=== PATIENT | male | born 1975 | race Caucasian/White ===

== ENCOUNTER 2021-06-24 08:44 | Inpatient (IN) | payer OTHER, SELFPAY ==
[2021-06-24] VITALS (9 sets, daily range): BP systolic 159–198; BP diastolic 9–106; PULSE 98–107; RESP 18–30; TEMP 36.4–37.2; O2SAT 94–99; BMI 42.8
--- NOTE | ~2021-06-24 | XR_ITS ---
EXAMINATION: XR CHEST CLINICAL INFORMATION: Dyspnea COMPARISON: None TECHNIQUE: Frontal view of the chest was obtained. FINDINGS: The cardiac silhouette is enlarged. There may be pulmonary venous redistribution. The lungs are otherwise clear. There is no pleural effusion or pneumothorax. There are degenerative changes of the spine. XR/XR chest 1V IMPRESSION: Enlarged cardiac silhouette and pulmonary venous redistribution. Enlarged heart/cardiomyopathy and pericardial effusion should be considered.
--- NOTE | ~2021-06-24 | US_ITS ---
EXAMINATION: US VENOUS ULTRASOUND WITH DOPPLER LOWER EXTREMITY, BILATERAL CLINICAL INFORMATION: Swelling COMPARISON: None TECHNIQUE: Ultrasound of the deep veins is performed from the hip to the calf with compression sonography and color and pulse Doppler assessment. Spectral analysis with color-flow imaging is performed. FINDINGS: RIGHT: There is normal venous compression and respiratory variation and augmented flow. The visualized common femoral vein, superficial femoral vein, profunda femoral vein, popliteal vein, and the trifurcation region shows no evidence of deep venous thrombosis. There is no significant popliteal fossa cyst. LEFT: There is normal venous compression and respiratory variation and augmented flow. The visualized common femoral vein, superficial femoral vein, profunda femoral vein, popliteal vein, and the trifurcation region shows no evidence of deep venous thrombosis. There is no significant popliteal fossa cyst. US/US venous duplex LE BI IMPRESSION: No DVT demonstrated in the bilateral lower extremity.
--- NOTE | 2021-06-24 09:43 | ED.SOB ---
HPI - SOB/Dyspnea General Chief Complaint: General Medical Stated Complaint: SOB/cough Time Seen by Provider: 06/24/21 09:40 Source: patient Mode of arrival: ambulatory Limitations: no limitations History of Present Illness HPI Narrative: over 3 months has had black stools, increased wob with exertion, LE swelling, cannot go up the stairs has not seen a doctor did not have insurance, father and uncle had CHF patient denies hx of ETOH or substance abuse history MD elicited complaint: shortness of breath (LE edema) Pertinent past history: other (denies does not go to the doctor) Onset (ago): month(s) (3) Context: occurred during exertion Timing: intermittent and progressively worsening Severity: moderate Exacerbating factors: exertion and movement Relieving factors: rest Associated symptoms: other (LE edema) Treatment prior to arrival: none Related Data Home Medications Medication Instructions Recorded Confirmed acetaminophen 325 mg tablet 650 mg PO Q6H PRN 06/24/21 06/24/21 Allergies Allergy/AdvReac Type Severity Reaction Status Date / Time No Known Allergies Allergy Verified 06/24/21 09:35 [No Known Allergies*] Review of Systems Review of Systems: Constitutional : No Fever, No Chills ENT/Mouth : No sore throat, No Rhinorrhea, No Swallowing Difficulty Eyes: No Eye Pain, No Swelling, No Redness Cardiovascular : No Chest Pain, positive SOB, No Orthopnea, positive Edema Respiratory : No Cough, No Sputum, No Wheezing, positive dyspnea Gastrointestinal : No Nausea, No Vomiting, No Diarrhea, No abdominal Pain, No Hematochezia, No Melena Genitourinary : No Dysuria, No Urinary Frequency, No Hematuria Musculoskeletal : No joint pain, No Myalgias Skin : No Skin Lesions, No rash Neuro : No Weakness, No Numbness, No Dizziness, No Headache Psych : No Anxiety/Panic, No Depression Heme/Lymph: No Bruising, No Lymphadenopathy Endocrine : No Polyuria, No Polydipsia All other systems reviewed and are negative PMFSH Past Medical History Attestation statement: The following information was validated with the patient. Medical History No known health problems Social History Social History (Updated 06/24/21 @ 10:08 by Alexa Matias DO) Alcohol intake: never Patient Tobacco Use Status: Never used Tobacco Use of substances other than those prescribed or required for medical reasons: No Advance Directives: No Advance Directives Information Provided: No Physical Exam Vital Signs: Vital Signs: Last Vital Signs Temp 98.4 F 06/24/21 09:50 Pulse 98 06/24/21 10:53 Resp 18 06/24/21 09:50 BP 169/102 H 06/24/21 10:53 Pulse Ox 97 06/24/21 10:53 BMI result Body Mass Index 42.8 Appearance: Alert. Oriented X3. No acute distress. Eyes: Pupils equal, round and reactive to light. ENT: Pharynx normal. Neck: Normal inspection. Neck supple. CVS: Normal heart rate and rhythm. Pulses normal. Respiratory: No respiratory distress. Breath sounds diminished at the bases Abdomen: Soft and nontender. Anasarca Skin: Skin warm and dry. pale skin color. Normal skin turgor. Extremities: pitting edema 2+ up to mid abdomen. No calf ttp Neuro: Oriented X 3. No motor deficit. No sensory deficit. Course Course Course Narrative: ECHO ordered for cardiomegaly bedside limited ECHO parasternal, apical and substernal - trace pericardial effusion seen he has an enlarged heart MDM - SOB/Dyspnea MDM Narrative Medical decision making narrative: 45 yo male with no sig PMH though he doesn't go to the doctors comes in with 3 months of LE edema, HORTON, black stools on exam he has anasarca at this time labs, BNP, CXR, EKG, DVT studies ordered. Suspect anemia vs CHF. Anticipate he will need admission given presentation vs new medications pending workup. Lab Data Labs: Lab Results 06/24/21 Range/Units 09:38 COVID-19 (FRANCOIS) Negative (Negative) COVID-19 Clin Com See Note ECG Data Attestation: I personally reviewed and interpreted this ECG as follows: ECG interpretation date: 06/24/21 ECG interpretation time: 11:21 Interpretation: Rate: 96 Rhythm: NSR [place]: left Normal P waves. Normal SHALOM. Normal QRS complex. Poor R wave progression ST T wave : no JOJO, nonspecific qTC: normal prior studies: no acute ischemia The study has been interpreted contemporaneously by me. . Discharge Plan Discharge Clinical Impression: Cardiomyopathy, Acute dyspnea, Anasarca Patient Disposition: Admitted As Inpatient
--- NOTE | 2021-06-24 09:49 | ECG_ITS ---
Test Reason : SOB Blood Pressure : / mmHG Vent. Rate : 096 BPM Atrial Rate : 096 BPM P-R Int : 136 ms QRS Dur : 090 ms QT Int : 372 ms P-R-T Axes : 042 -05 027 degrees QTc Int : 469 ms Normal sinus rhythm Nonspecific ST and T wave abnormality Abnormal ECG No previous ECGs available Referred By: Alexa Matias Electronically Signed By:Dmitriy Cornelius
--- NOTE | 2021-06-24 09:55 | PHA.MEDREC ---
Pharmacy Consult ? Medication Reconciliation Pharmacy has completed the medication reconciliation. Patient reports taking no medications. Only as needed tylenol. Stefania Grewal, LuciD
[2021-06-24 10:41] LABS: COVID-19 Test Negative (Negative); IDNOW Serial# 9DD0AD1C
--- NOTE | 2021-06-24 11:12 | CA_ITS ---
Transthoracic Echocardiogram Patient (Last, First, Middle): Sudarshan Hensley, Gender: Male Date of : 1975 Age: 45 Procedure Date: 06/24/2021 Procedure Type: Transthoracic E[place] [facility] [place]: 175.26 cm Weight: 131.54 kg BSA: 2.42 m2 Heart Rate: bpm BP: 169 / 102 mmHg Line Operator: Referring MD: Alexa Matias DO Symptoms: dyspnea, anasarca Study Quality: Fair ECG Rhythm: Sinus Conclusions: - Mildly increased left ventricular cavity size. There is mildly increased left ventricular wall thickness. The left ventricular systolic function is moderately decreased. The visually estimated ejection fraction is between 30-35%. - E/E prime ratio is >15, consistent with elevated filling pressures. - Mildly increased right ventricular cavity size. There is mild to moderately decreased right ventricular systolic function. - The left atrium is moderately dilated. - Significantly elevated right atrial pressure. Moderate pulmonary hypertension is present. Findings Procedure Information Contrast agent, definity, is being given per protocol without apparent complications. Left Ventricle Mildly increased left ventricular cavity size. There is mildly increased left ventricular wall thickness. The left ventricular systolic function is moderately decreased. The visually estimated ejection fraction is between 30 35%. There is moderate global hypokinesis. Abnormal diastolic function is noted. Spectral Doppler is indicative of a restrictive filling pattern. E/E prime ratio is >15, consistent with elevated filling pressures. Right Ventricle Mildly increased right ventricular cavity size. There is mild to moderately decreased right ventricular systolic function. Atria The left atrium is moderately dilated. Aortic Valve The aortic valve was not well visualized. There is no aortic valve stenosis. There is no aortic valve regurgitation. Mitral Valve Normal mitral valve structure and function. There is no mitral valve regurgitation. There is no mitral valve stenosis. Pulmonic Valve The pulmonic valve is likely normal. Tricuspid Valve Normal tricuspid valve structure. There is trace tricuspid valve regurgitation. Significantly elevated right atrial pressure. Moderate pulmonary hypertension is present. Great Vessels All visible segments of the aorta are normal in size. The visualized portions of the pulmonary artery and branches are normal. Venous The inferior vena cava is dilated and does not collapse with inspiration. Pericardium/Pleural There is no evidence of pericardial effusion. Prior Study Comparison No prior study available for comparison. Measurements 2D Linear Measurements IVSd: 1.13 0.6-0.9/0.6-1.0 cm LVIDd: 6.76 3.9-5.3/4.2-5.9 cm LVIDd Index: 2.79 2.4-3.2/2.2-3.1 cm/m2 LVIDs: 5.83 2.0-3.6 cm LVPWd: 1.07 0.7-1.1 cm Ao Root: 3.00 2.1-3.5 cm LA Diam: 5.50 2.7-3.8/3.0-4.0 cm LAIDs Index: 2.27 1.5-2.3 cm/m2 LV Mass: 426.82 67-162/88-224 g LV Mass Index: 176.37 43-95/49-115 g/m2 LVOT Diam: 2.30 3.0+(-)1.3 cm 2D Systolic Function EF 4C: 25.80 >55% EF 2C: 35.00 >55% EF BiP: 29.00 >55% Mitral Valve MV Pk E: 1.28 MV Decel Time: 146.00 E'Lateral: 6.64 E'Medial: 5.11 E/E' Med: 25.00 E/E' Lat: 19.30 PHT: 43.00 MVA PHT: 5.12 Decel [place]: 8.77 Aortic Valve AoV Pk Bradley: 1.26 AoV Mn Bradley: 0.83 AoV VTI: 0.19 AoV Pk Grad: 6.00 Aov Mn Grad: 3.00 BONNIE Cont.VTI: 3.50 LVOT LVOT Pk Bradley: 1.01 LVOT Mn Bradley: 0.75 LVOT VTI: 0.16 LVOT Pk Grad: 4.00 LVOT Mn Grad: 3.00 LVOT Diam: 2.30 LVOT Area: 4.15 Diastolic Function MV Pk E: 1.28 E'Medial: 5.11 E/E' Med: 25.00 E' Laterial: 6.64 E/E' Lat: 19.30 Right Ventricle TAPSE (mm): 29.00 Tricuspid Valve TR Pk Bradley: 2.53 TR Pk Grad: 26.00 RVSP: 52.00 Great Vessels Aorta Ao Root-2D: 3.00 2.0-3.7 cm Pulmonary Valve PV Pk Bradley: 0.86 Peak PV Grad: 3.00 Updated in Other Vendor System with Status of Final Dmitriy Cornelius MD electronically signed on 06/24/2021 6:58:55 PM with status of Final
[2021-06-24 12:05] LABS: MANUAL DIFF FLAG NO
[2021-06-24] MEDS: Benzonatate 100 MG CAPSULE PO (12:05)
[2021-06-24] MEDS: Furosemide 40 MG/4 ML VIAL IVPUSH ×2 (12:06→17:11)
[2021-06-24 12:10] LABS: Basophils Percent Auto 0.3 % (0-2); Eosinophils Percent Auto 0.4 % (0-4); Hematocrit 41.1 % (42.0-52.0); Hemoglobin 12.6 g/dl (14.0-18.0); Imm Gran Abs Auto 0.03 X10*3/uL (0.00-0.03); Imm Gran Pct Auto 0.3 % (0.0-0.4); Lymphocytes Absolute Auto 1.7 X10*3/uL (1.2-4.9); Lymphocytes Percent Auto 16.1 % (20-40); Mean Corpuscular HGB Conc 30.7 g/dl (31.0-36.0); Mean Corpuscular Hemoglobin 27.3 pg (27.0-33.0); Mean Corpuscular Volume 89.2 fL (80.0-98.0); Mean Platelet Volume 10.9 fL (9.4-12.4); Monocytes Absolute Auto 0.6 X10*3/uL (0.1-1.2); Monocytes Percent Auto 5.8 % (2-11); Neutrophils Absolute Auto 8.3 x10*3/uL (2.0-8.3); Neutrophils Percent Auto 77.1 % (45-73); Platelet Count 219 X10*3/uL (160-400); Red Blood Count 4.61 X10*6/uL (4.60-5.80); Red Cell Distribution Width 14.1 % (11.0-16.0); White Blood Count 10.7 X10*3/uL (4.8-10.8)
[2021-06-24 12:24] LABS: Alanine Aminotransferase 24 U/L (0-40); Albumin Level 3.8 g/dL (3.5-5.0); Alkaline Phosphatase 96 U/L (39-117); Anion Gap 13 (12-20); Aspartate Amino Transferase 21 U/L (5-37); Bilirubin Direct 0.7 mg/dL (0.0-0.5); Bilirubin Total 1.8 mg/dL (0.0-1.0); Blood Urea Nitrogen 9 mg/dL (9-16); Calcium 9.1 mg/dL (8.4-10.2); Carbon Dioxide 29 mmol/L (22-29); Chloride 104 mmol/L (96-108); Creatinine Clr Calc Pharmacy 144.2; Estimated Glomerular Filt Rate > 60; Glucose Random 96 mg/dL (60-115); Magnesium 2.1 mg/dL (1.6-2.6); Potassium 4.1 mmol/L (3.3-5.1); Sodium 142 mmol/L (135-145); Total Protein 6.3 g/dL (6.5-8.0)
[2021-06-24 12:31] LABS: B Type Natriuretic Peptide 788 pg/mL (<100); Troponin-I High Sensitivity 14.2 ng/L (<3.5-35.0)
[2021-06-24 12:45] LABS: TSH reflex Free T4 0.74 uIU/mL (0.32-4.0)
--- NOTE | 2021-06-24 15:09 | P.HPHOSP_ITS ---
History of Present Illness Date of Service: 06/24/21 Attending physician on admission: [facility] Chief Complaint: Shortness of breath 45-year-old man presented with complaints of worsening shortness of breath over the last several weeks with swelling to his lower extremities. He reports actually has had this progressive shortness of breath over the last year. He does not have a PCP and has not seen a PCP in many years. Is obese and according to him he has no medical problems. He has noticed that his shortness of breath increased with activity especially going up stairs. He has been waking up in the middle of the night with shortness of breath and he is unable to lay flat must use several pillows. He also reported some chest pressure especially with activity and when he has taken a deep breath. He reports that rest does alleviate this. He denied any radiation or other associated symptoms. Denies any history of heart disease. He reports that his father approximately 2 weeks ago. He denied recent illness, fever, chills, nausea, vomiting, diarrhea, cough. In the ER his BNP was noted to be elevated at 788, chest x-ray showed enlarged cardiac silhouette with pulmonary venous redistribution, blood pressure was noted to be elevated and patient denies any history of high blood pressure. He was given 2 doses of 40 mg of IV Lasix as well as Tessalon Perles for a cough. He will be admitted for further management and treatment of acute congestive heart failure. Review of Systems Verdana 4l Review of Systems: Verdana 4d Verdana 4d Denies any recent fever chills or decrease in appetite respiratory see HPI cardiovascular See HPI gastrointestinal denies any dysphagia abdominal pain nausea vomiting or diarrhea genitourinary denies any dysuria frequency or hematuriahematuria musculoskeletal denies any joint pain or swelling neuropsych denies any weakness or seizures all other systems reviewed are negative [facility] Medical History (Updated 06/24/21 @ 16:54 by Lizz De León NP) Diverticulitis No known health problems Obesity Family History (Updated 06/24/21 @ 16:52 by Lizz De León NP) Father Coronary artery disease CKD (chronic kidney disease) Pertinent family history: Hypertension Social History (Updated 06/24/21 @ 10:08 by Alexa Matias DO) Alcohol intake: never Patient Tobacco Use Status: Never used Tobacco Use of substances other than those prescribed or required for medical reasons: No Advance Directives: No Advance Directives Information Provided: No Meds Allergies Allergy/AdvReac Type Severity Reaction Status Date / Time No Known Allergies Allergy Verified 06/24/21 09:35 [No Known Allergies*] Active Medications: Current Medications Acetaminophen (Acetaminophen 325 Mg Tablet) 650 mg PO Q6H PRN PRN Reason: Pain, Mild (Pain Scale 1-3) Enoxaparin Sodium (Enoxaparin Sodium 40 Mg/0.4 Ml Syringe) 40 mg SUBCUT Q24H ANTHONY Ondansetron HCl (Ondansetron Hcl 4 Mg/2 Ml Vial) 4 mg IVPUSH Q8H PRN PRN Reason: Nausea and Vomiting Pharmacy Consult (Consult Rx Perform Med Rec) 1 each MISCELLANE ONCE PRN PRN Reason: Consult order Sodium Chloride (0.9 % Sodium Chloride Flush 3 Ml Syringe) 3 ml IVFLUSH QSHIFT [facility] Home Medications Medication Instructions Recorded Confirmed Last Taken Type acetaminophen 325 650 mg PO Q6H 06/24/21 06/24/21 Unknown History mg tablet PRN Physical Exam Verdana 4l Vital Signs and Narrative: Verdana 4d Verdana 4d Vital Signs: Verdana 4d Verdana 4Bd Last Vital Signs Verdana 4d Insurance Administrative Assistant New 4d Insurance Administrative Assistant New 4d Temp 98.3 F 06/24/21 14:56 Insurance Administrative Assistant New 4d Pulse 107 H 06/24/21 14:56 Insurance Administrative Assistant NewNew 4d Resp 30 H 06/24/21 14:56 BP 167/9 H 06/24/21 14:56 Pulse Ox 98 06/24/21 14:56 BMI result Body Mass Index 42.8 Appearing in no acute distress head is normocephalic atraumatic eyes pupils are PERRLA sclera is anicteric mouth throat mucous membranes are intact and moist neck is supple no lymphadenopathy, no JVD noted lung sounds are clear to auscultation heart regular rate rhythm, clear S1, S2 positive bowel sounds, abdomen is soft, nontender neuro patient is alert x3, no focal deficits Obese Results Labs CBC and Chem 7: 06/24/21 11:51 06/24/21 11:51 Labs: Laboratory Results - last 24 hr 06/24/21 06/24/21 06/24/21 09:38 11:51 11:51 MCV 89.2 MCH 27.3 MCHC 30.7 L RDW 14.1 Plt Count 219 MPV 10.9 Immature Gran % (Auto) 0.3 Neut % (Auto) 77.1 H Lymph % (Auto) 16.1 L [place] % (Auto) 5.8 Eos % (Auto) 0.4 Baso % (Auto) 0.3 Lymph # (Auto) 1.7 [place] # (Auto) 0.6 Eos # (Auto) 0.0 Baso # (Auto) 0.0 Abs Immat Gran (auto) 0.03 Absolute Neuts (auto) 8.3 Absolute Nucleated RBC 0.000 Nucleated RBC % (auto) 0.0 Anion Gap 13 Estim Creat Clear Calc 144.2 Estimated GFR > 60 Random Glucose 96 Calcium 9.1 Magnesium 2.1 Total Bilirubin 1.8 H Direct Bilirubin 0.7 H AST 21 ALT 24 Alkaline Phosphatase 96 Troponin I High Sens B-Natriuretic Peptide Total Protein 6.3 L Albumin 3.8 TSH COVID-19 (FRANCOIS) Negative COVID-19 [employer] Com See Note Blood Type Antibody Screen 06/24/21 06/24/21 06/24/21 11:51 11:51 12:17 MCV MCH MCHC RDW Plt Count MPV Immature Gran % (Auto) Neut % (Auto) Lymph % (Auto) [place] % (Auto) Eos % (Auto) Baso % (Auto) Lymph # (Auto) [place] # (Auto) Eos # (Auto) Baso # (Auto) Abs Immat Gran (auto) Absolute Neuts (auto) Absolute Nucleated RBC Nucleated RBC % (auto) Anion Gap Estim Creat Clear Calc Estimated GFR Random Glucose Calcium Magnesium Total Bilirubin Direct Bilirubin AST ALT Alkaline Phosphatase Troponin I High Sens 14.2 B-Natriuretic Peptide 788 H Total Protein Albumin TSH 0.74 COVID-19 (FRANCOIS) COVID-19 Clin Com Blood Type AB Positive Antibody Screen NEGATIVE Imaging Radiologist's Impressions: Impressions Venous Duplex 06/24/21 10:45 IMPRESSION: No DVT demonstrated in the bilateral lower extremity. Chest X-Ray 06/24/21 10:49 IMPRESSION: Enlarged cardiac silhouette and pulmonary venous redistribution. Enlarged heart/cardiomyopathy and pericardial effusion should be considered. Assessment and Plan (1) CHF (congestive heart failure): Status: Acute (2) Cardiomyopathy: Qualifiers: Cardiomyopathy type: unspecified Qualified Code(s): I42.9 - Cardiomyopathy, unspecified Status: Acute (3) Elevated blood pressure reading: Status: Acute (4) Obesity: Status: Acute 45-year-old man admitted with acute congestive heart failure with no history of cardiac disease and has not seen a doctor in many years. Acute congestive heart failure unspecified at this time Echocardiogram pending Cardiology consultation Lasix 40 mg IV b.i.d. Intake and output, daily weights Low-sodium diet Elevated blood pressure readings. Not on anti hypertensives Lasix should help blood pressure if not consider adding antihypertensive agent Obesity. BMI 42.8 Encouraged weight management as this may be contributing to worsening of other comorbidities DVT prophylaxis with Lovenox attending Dr. Mohamud Quality Stroke Does the patient have a stroke diagnosis?: No VTE Prior VTE?: No VTE Risk Level:: Medical - moderate - high VTE Device Contraindication: Treatment Not Indicated VTE Drug Contraindication: N/A - Med Ordered
[2021-06-24] MEDS: 0.9 % Sodium Chloride Flush 3 ML SYRINGE IVFLUSH ×2 (17:11→21:22)
[2021-06-24] MEDS: Enoxaparin Sodium 40 MG/0.4 ML SYRINGE SUBCUT (17:11)
[2021-06-24] MEDS: lisinopriL 5 MG TABLET PO (18:38)
--- NOTE | 2021-06-24 20:02 | PC.NURSE ---
Report called to inpatient RN, pt to floor via wc in stable condition w/ all belongings
[2021-06-25] VITALS (8 sets, daily range): BP systolic 120–162; BP diastolic 64–100; PULSE 87–101; RESP 17–20; TEMP 36.2–37.7; O2SAT 92–96
[2021-06-25 05:38] LABS: MANUAL DIFF FLAG NO
[2021-06-25 05:43] LABS: Basophils Percent Auto 0.3 % (0-2); Eosinophils Absolute Auto 0.1 X10*3/uL (0.0-0.4); Eosinophils Percent Auto 0.9 % (0-4); Hematocrit 38.5 % (42.0-52.0); Imm Gran Abs Auto 0.03 X10*3/uL (0.00-0.03); Imm Gran Pct Auto 0.3 % (0.0-0.4); Lymphocytes Absolute Auto 1.4 X10*3/uL (1.2-4.9); Lymphocytes Percent Auto 13.5 % (20-40); Mean Corpuscular HGB Conc 31.2 g/dl (31.0-36.0); Mean Corpuscular Hemoglobin 27.3 pg (27.0-33.0); Mean Corpuscular Volume 87.5 fL (80.0-98.0); Mean Platelet Volume 11.1 fL (9.4-12.4); Monocytes Absolute Auto 0.7 X10*3/uL (0.1-1.2); Monocytes Percent Auto 6.5 % (2-11); Neutrophils Absolute Auto 8.2 x10*3/uL (2.0-8.3); Neutrophils Percent Auto 78.5 % (45-73); Platelet Count 200 X10*3/uL (160-400); Red Cell Distribution Width 13.9 % (11.0-16.0); White Blood Count 10.5 X10*3/uL (4.8-10.8)
[2021-06-25 05:59] LABS: Anion Gap 12 (12-20); Blood Urea Nitrogen 10 mg/dL (9-16); Calcium 8.7 mg/dL (8.4-10.2); Carbon Dioxide 29 mmol/L (22-29); Chloride 104 mmol/L (96-108); Creatinine Clr Calc Pharmacy 144.2; Estimated Glomerular Filt Rate > 60; Glucose Random 100 mg/dL (60-115); Potassium 3.2 mmol/L (3.3-5.1); Sodium 142 mmol/L (135-145)
[2021-06-25 06:02] LABS: Cholesterol 141 mg/dL; HDL Cholesterol 30 mg/dL; LDL Cholesterol Calculated 95 mg/dl; Triglycerides 80 mg/dL
[2021-06-25 06:05] LABS: B Type Natriuretic Peptide 901 pg/mL (<100)
[2021-06-25] MEDS: Furosemide 40 MG/4 ML VIAL IVPUSH (10:33)
[2021-06-25] MEDS: lisinopriL 5 MG TABLET PO (10:34)
[2021-06-25] MEDS: Isosorbide Mononitrate 30 MG TAB.ER.24H PO (10:34)
[2021-06-25] MEDS: 0.9 % Sodium Chloride Flush 3 ML SYRINGE IVFLUSH ×3 (10:34→20:55)
--- NOTE | 2021-06-25 10:48 | P.CDIC_ITS ---
CDI Concurrent Query Documentation Clarification: PHYSICIAN'S DOCUMENTATION REQUEST Date of Query: 06/25/21 1048 Patient Name: Sudarshan Hensley Admit Date: 06/24/21 Dear Doctor, A review of the medical record indicates additional documentation may be needed. Please review below and update the documentation accordingly. Risk Factors/Clinical Indicators/Treatments Body Mass Index: 42.8 Encouraging weight management. If possible, please provide an associated diagnosis related to the abnormal BMI, such as: For a BMI >= 40: * Overweight * Obesity * Due to excess calories * Drug induced * Due to other cause * Severe or Morbid Obesity * Other or unknown Use of terms such as suspected, likely, concern for, or probable (associated with a specific diagnosis that is being evaluated, monitored, or treated as if it exists) are acceptable and can be coded in the inpatient setting, when documented at the time of discharge. Thank you, Lauren Guido [facility], CDIS Extension: [phone] Please use your independent medical judgment in providing your response. THIS QUERY IS PART OF THE PERMANENT MEDICAL RECORD Provider Response: Other Other Diagnosis: obesity 2nd excess calories
[2021-06-25] MEDS: Acetaminophen 325 MG TABLET 650 MG PO ×2 (13:07→21:37)
--- NOTE | 2021-06-25 13:37 | HO.PM.IMPN ---
Subjective Subjective Date of Service: 06/25/21 Interval History: notes considerable difference with diuresis. Denies chest pain. Review of Systems Denies chest pain Denies shortness of breath Denies nausea vomiting diarrhea Physical Exam Vital Signs: Vital Signs: Last Vital Signs Temp 99.8 F 06/25/21 11:37 Pulse 101 H 06/25/21 11:37 Resp 18 06/25/21 11:37 BP 130/90 H 06/25/21 11:37 Pulse Ox 96 06/25/21 11:37 BMI result Body Mass Index 42.8 Const: Other: in no acute distress Resp: Other: such clear to auscultation bilaterally no rales rhonchi or wheezes Cardio: Other: no S4; positive S1-S2; Extrem: Other: bilateral pitting edema Objective Data Active Medications Acetaminophen (Acetaminophen 325 Mg Tablet) 650 mg PO Q6H PRN PRN Reason: Pain, Mild (Pain Scale 1-3) Last Admin: 06/25/21 13:07 Dose: 650 mg Documented by: RAD Enoxaparin Sodium (Enoxaparin Sodium 40 Mg/0.4 Ml Syringe) 40 mg SUBCUT Q24H [facility] [place] Last Admin: 06/24/21 17:11 Dose: 40 mg Documented by: ALEJANDRA Furosemide (Furosemide 40 Mg/4 Ml Vial) 40 mg IVPUSH BID@0900,1800 [facility]; Protocol Last Admin: 06/25/21 10:33 Dose: 40 mg Documented by: RAD Isosorbide Mononitrate (Isosorbide Mononitrate 30 Mg Tab.Er.24h) 30 mg PO DAILY [facility]; Protocol Last Admin: 06/25/21 10:34 Dose: 30 mg Documented by: RAD Lisinopril (Lisinopril 5 Mg Tablet) 5 mg PO DAILY [facility] [place]; Protocol Last Admin: 06/25/21 10:34 Dose: 5 mg Documented by: RAD Ondansetron HCl (Ondansetron Hcl 4 Mg/2 Ml Vial) 4 mg IVPUSH Q8H PRN PRN Reason: Nausea and Vomiting Pharmacy Consult (Consult Rx Perform Med Rec) 1 each MISCELLANE ONCE PRN PRN Reason: Consult order Sodium Chloride (0.9 % Sodium Chloride Flush 3 Ml Syringe) [facility] Last Admin: 06/25/21 10:34 Dose: 3 ml Documented by: RAD Labs CBC & Chem 7: 06/25/21 05:28 06/25/21 05:28 Labs: Laboratory Results - last 24 hr 06/25/21 06/25/21 06/25/21 05:28 05:28 05:28 MCV 87.5 MCH 27.3 MCHC 31.2 RDW 13.9 Plt Count 200 MPV 11.1 Immature Gran % (Auto) 0.3 Neut % (Auto) 78.5 H Lymph % (Auto) 13.5 L [place] % (Auto) 6.5 Eos % (Auto) 0.9 Baso % (Auto) 0.3 Lymph # (Auto) 1.4 [place] # (Auto) 0.7 Eos # (Auto) 0.1 Baso # (Auto) 0.0 Abs Immat Gran (auto) 0.03 Absolute Neuts (auto) 8.2 Absolute Nucleated RBC 0.000 Nucleated RBC % (auto) 0.0 Anion Gap 12 Estim Creat Clear Calc 144.2 Estimated GFR > 60 Random Glucose 100 Calcium 8.7 B-Natriuretic Peptide 901 H Triglycerides Cholesterol LDL Cholesterol, Calc HDL Cholesterol 06/25/21 05:28 MCV MCH MCHC RDW Plt Count MPV Immature Gran % (Auto) Neut % (Auto) Lymph % (Auto) [place] % (Auto) Eos % (Auto) Baso % (Auto) Lymph # (Auto) [place] # (Auto) Eos # (Auto) Baso # (Auto) Abs Immat Gran (auto) Absolute Neuts (auto) Absolute Nucleated RBC Nucleated RBC % (auto) Anion Gap Estim Creat Clear Calc Estimated GFR Random Glucose Calcium B-Natriuretic Peptide Triglycerides 80 Cholesterol 141 LDL Cholesterol, Calc 95 HDL Cholesterol 30 Assessment and Plan (1) CHF (congestive heart failure): Status: Acute (2) HTN (hypertension): Status: Acute Assessment and Plan: 45-year-old man admitted with acute congestive heart failure with no history of cardiac disease; improved with diuresis 1.Acute Systolic CHF Mildly increased left ventricular cavity size.? There is mildly increased left ventricular wall thickness.? The left ventricular systolic function is moderately decreased.? The visually ? estimated ejection fraction is between 30-35%. ? ? Lasix 40 mg IV b.i.d. Cards input pending Intake and output, daily weights Low-sodium diet 2. HTN Poorly controlled; will increase lisinopril to 10 mg daily and follow titrate as indicated Follow daily divalents and creatinine 3. Morbid obesity likely ÁNGEL CPaP at ;Outpatient study DVT prophylaxis with Lovenox Quality Stroke Does the patient have a stroke diagnosis?: No VTE Prior VTE?: No VTE Risk Level:: Medical - moderate - high VTE Device Contraindication: Treatment Not Indicated VTE Drug Contraindication: N/A - Med Ordered
--- NOTE | 2021-06-25 15:10 | P.CONCA_ITS ---
History of Present Illness History of Present Illness Date of Service: 06/25/21 Requesting physician: Low Godoy Chief complaint: Acute CHF Narrative: [age] year gentleman with obesity and no previous past medical history who is presenting for shortness of breath and peripheral edema. Clinically was thought to be in heart failure. He said he has been had an experiencing shortness of breath for the last week or so. He also had orthopnea PND. He has been experiencing lower extremity edema for many years. He has not seen a doctor in the recent years. Significantly hypertensive. Clinically was in heart failure and was admitted for diuresis. He was given IV diuretics. Echocardiography in has shown moderate reduced ejection fraction with RV dysfun ction. Better with diuretics. Still significantly volume overloaded. Blood pressure control is improving. [facility] Past Medical History Medical History (Updated 06/25/21 @ 13:52 by Low Godoy DO) Diverticulitis No known health problems Obesity Family History Family History (Updated 06/24/21 @ 16:52 by Lizz De León NP) Father Coronary artery disease CKD (chronic kidney disease) Social History Social History (Updated 06/24/21 @ 10:08 by Alexa Matias DO) Household Members: Significant Other Housing: Apartment Do you presently have visiting nurse or other home services: No Alcohol intake: never Patient Tobacco Use Status: Never used Tobacco Use of substances other than those prescribed or required for medical reasons: No Currently Displaying Signs/Symptoms of Drug Intoxication Withdrawal: No Have you been hit, kicked, punched, or otherwise hurt by someone within the past year? If so, by whom?: No Do you feel safe in your current relationship?: Yes Is there a partner from a previous relationship who is making you feel unsafe now?: No Are you made to feel afraid or neglected: No [facility] Practices: [facility]ahai Advance Directives: No Advance Directives Information Provided: No Do you have thoughts of harming others: None Do you have a plan to hurt others: No Plan Recently lost weight without trying: No Nutrition Risks: No Nutritional Risk service: No Current occupational status: employed Meds Allergies Allergy/AdvReac Type Severity Reaction Status Date / Time No Known Allergies Allergy Verified 06/24/21 09:35 [No Known Allergies*] Active Medications: Current Medications Acetaminophen (Acetaminophen 325 Mg Tablet) 650 mg PO Q6H PRN PRN Reason: Pain, Mild (Pain Scale 1-3) Last Admin: 06/25/21 13:07 Dose: 650 mg Documented by: Enoxaparin Sodium (Enoxaparin Sodium 40 Mg/0.4 Ml Syringe) 40 mg SUBCUT Q24H [facility] Last Admin: 06/24/21 17:11 Dose: 40 mg Documented by: Furosemide (Furosemide 40 Mg/4 Ml Vial) 40 mg IVPUSH BID@0900,1800 [facility]; Protocol Last Admin: 06/25/21 10:33 Dose: 40 mg Documented by: Isosorbide Mononitrate (Isosorbide Mononitrate 30 Mg Tab.Er.24h) 30 mg PO DAILY [facility]; Protocol Last Admin: 06/25/21 10:34 Dose: 30 mg Documented by: Lisinopril (Lisinopril 5 Mg Tablet) 5 mg PO DAILY [facility]; Protocol Last Admin: 06/25/21 10:34 Dose: 5 mg Documented by: Ondansetron HCl (Ondansetron Hcl 4 Mg/2 Ml Vial) 4 mg IVPUSH Q8H PRN PRN Reason: Nausea and Vomiting Pharmacy Consult (Consult Rx Perform Med Rec) 1 each MISCELLANE ONCE PRN PRN Reason: Consult order Sodium Chloride (0.9 % Sodium Chloride Flush 3 Ml Syringe) 3 ml IVFLUSH QSHIFT [facility] Last Admin: 06/25/21 10:34 Dose: 3 ml Documented by: Home Medications Medication Instructions Recorded Confirmed Last Taken Type acetaminophen 325 mg tablet 650 mg PO Q6H PRN 06/24/21 06/24/21 Unknown History Physical Exam Vital Signs: Vital Signs: Last Vital Signs Temp 99.8 F 06/25/21 11:37 Pulse 101 H 06/25/21 11:37 Resp 18 06/25/21 11:37 BP 130/90 H 06/25/21 11:37 Pulse Ox 96 06/25/21 11:37 BMI result Body Mass Index 42.8 GENERAL APPEARANCE: in no acute distress, pleasant. NECK: no carotid bruit, + jugular venous distention. SKIN: no suspicious lesions, warm and dry. HEART: no murmurs, regular rate and rhythm. LUNGS: clear to auscultation bilaterally. ABDOMEN: soft, nontender. EXTREMITIES: 1-2+ edema. PERIPHERAL PULSES: equal. NEUROLOGIC: No gross deficits, AAO X 3 Objective Labs and Meds Result diagrams: 06/25/21 05:28 06/25/21 05:28 Lab results: Laboratory Results - last 24 hr 06/25/21 06/25/21 06/25/21 05:28 05:28 05:28 WBC 10.5 RBC 4.40 L Hgb 12.0 L Hct 38.5 L MCV 87.5 MCH 27.3 MCHC 31.2 RDW 13.9 Plt Count 200 MPV 11.1 Immature Gran % (Auto) 0.3 Neut % (Auto) 78.5 H Lymph % (Auto) 13.5 L [place] % (Auto) 6.5 Eos % (Auto) 0.9 Baso % (Auto) 0.3 Lymph # (Auto) 1.4 [place] # (Auto) 0.7 Eos # (Auto) 0.1 Baso # (Auto) 0.0 Abs Immat Gran (auto) 0.03 Absolute Neuts (auto) 8.2 Absolute Nucleated RBC 0.000 Nucleated RBC % (auto) 0.0 Sodium 142 Potassium 3.2 L D Chloride 104 Carbon Dioxide 29 Anion Gap 12 BUN 10 Creatinine 0.86 Estim Creat Clear Calc 144.2 Estimated GFR > 60 Random Glucose 100 Calcium 8.7 B-Natriuretic Peptide 901 H Triglycerides Cholesterol LDL Cholesterol, Calc HDL Cholesterol 06/25/21 05:28 WBC RBC Hgb Hct MCV MCH MCHC RDW Plt Count MPV Immature Gran % (Auto) Neut % (Auto) Lymph % (Auto) [place] % (Auto) Eos % (Auto) Baso % (Auto) Lymph # (Auto) [place] # (Auto) Eos # (Auto) Baso # (Auto) Abs Immat Gran (auto) Absolute Neuts (auto) Absolute Nucleated RBC Nucleated RBC % (auto) Sodium Potassium Chloride Carbon Dioxide Anion Gap BUN Creatinine Estim Creat Clear Calc Estimated GFR Random Glucose Calcium B-Natriuretic Peptide Triglycerides 80 Cholesterol 141 LDL Cholesterol, Calc 95 HDL Cholesterol 30 Assessment and Plan (1) HTN (hypertension): Status: Acute (2) Cardiomyopathy: Qualifiers: Cardiomyopathy type: unspecified Qualified Code(s): I42.9 - Cardiomyopathy, unspecified Status: Acute (3) CHF (congestive heart failure): Status: Acute 45-year-old gentleman who is presenting shortness of breath and lower extremity edema. Clinically he is in heart failure. Echocardiography has shown moderately reduced ejection fraction with RV dysfunction. I think the etiology is hypertension. His blood pressure control is improving. He is on DANA- inhibitor and diuretics. He also is on some Imdur. I thing as his volume status improved which includes beta-joel. He had some vague chest discomfort but was quite hypertensive also. I think depending on his symptoms once his blood pressure is controlled we will decide whether we should do ischemic evaluation right. Thank you for allowing me to participate in the care of your patient. Please feel free to contact me if you have any questions. Procedures Date of Service Date of Service: 06/25/21
--- NOTE | 2021-06-25 15:47 | MHC.CM.PN ---
PATIENT LIVES WITH HIS SIGNIFICANT OTHER AND IS FULLY INDEPENDENT. HE ASKS FOR A WORK NOTE AT TIME OF DISCHARGE. NO PCP AND PATIENT TO BE GIVEN [facility] PROVIDER LIST IF HE AGREES NO DME OR VNA SERVICES. PLAN IS HOME AT DISCHARGE S.O. TO PROVIDE TRANSPORTATION.
[2021-06-25] MEDS: Enoxaparin Sodium 40 MG/0.4 ML SYRINGE SUBCUT (17:15)
[2021-06-25] MEDS: Furosemide 100 MG/10 ML VIAL 80 MG IVPUSH (17:16)
[2021-06-25] MEDS: Benzonatate 100 MG CAPSULE PO (21:38)
[2021-06-26] VITALS (7 sets, daily range): BP systolic 129–155; BP diastolic 64–95; PULSE 90–102; RESP 16–20; TEMP 36.2–36.8; O2SAT 93–95
--- NOTE | 2021-06-26 04:44 | PC.NURSE ---
Pt c/o intermittent and persistent non productive cough, LSC, O2 sats on high 90s, pt requesting for cough med, Dr. Urban was paged, Ann tello ordered, med was effective for few hours , also pt c/o right sided pain from coughing, prn Tylenol given, pt slept at intervals, awaken early because of coughing.
[2021-06-26 05:42] LABS: MANUAL DIFF FLAG NO
[2021-06-26 05:45] LABS: Basophils Percent Auto 0.3 % (0-2); Eosinophils Absolute Auto 0.2 X10*3/uL (0.0-0.4); Eosinophils Percent Auto 1.9 % (0-4); Hematocrit 41.3 % (42.0-52.0); Hemoglobin 12.8 g/dl (14.0-18.0); Imm Gran Abs Auto 0.02 X10*3/uL (0.00-0.03); Imm Gran Pct Auto 0.2 % (0.0-0.4); Lymphocytes Absolute Auto 1.2 X10*3/uL (1.2-4.9); Lymphocytes Percent Auto 13.2 % (20-40); Mean Corpuscular Hemoglobin 27.2 pg (27.0-33.0); Mean Corpuscular Volume 87.7 fL (80.0-98.0); Mean Platelet Volume 10.7 fL (9.4-12.4); Monocytes Absolute Auto 0.9 X10*3/uL (0.1-1.2); Monocytes Percent Auto 10.2 % (2-11); Neutrophils Absolute Auto 6.6 x10*3/uL (2.0-8.3); Neutrophils Percent Auto 74.2 % (45-73); Platelet Count 209 X10*3/uL (160-400); Red Blood Count 4.71 X10*6/uL (4.60-5.80); White Blood Count 8.8 X10*3/uL (4.8-10.8)
[2021-06-26 06:23] LABS: Alanine Aminotransferase 22 U/L (0-40); Albumin Level 3.7 g/dL (3.5-5.0); Alkaline Phosphatase 89 U/L (39-117); Anion Gap 14 (12-20); Aspartate Amino Transferase 22 U/L (5-37); Bilirubin Total 1.5 mg/dL (0.0-1.0); Blood Urea Nitrogen 13 mg/dL (9-16); Calcium 8.9 mg/dL (8.4-10.2); Carbon Dioxide 29 mmol/L (22-29); Chloride 101 mmol/L (96-108); Creatinine Clr Calc Pharmacy 115.9; Estimated Glomerular Filt Rate > 60; Glucose Fasting 104 mg/dL (60-99); Magnesium 1.8 mg/dL (1.6-2.6); Potassium 3.4 mmol/L (3.3-5.1); Sodium 141 mmol/L (135-145); Total Protein 6.2 g/dL (6.5-8.0)
[2021-06-26] MEDS: Benzonatate 100 MG CAPSULE PO (09:08)
[2021-06-26] MEDS: lisinopriL 10 MG TABLET PO (09:08)
[2021-06-26] MEDS: Furosemide 100 MG/10 ML VIAL 80 MG IVPUSH ×2 (09:08→17:39)
[2021-06-26] MEDS: Isosorbide Mononitrate 30 MG TAB.ER.24H PO (09:08)
[2021-06-26] MEDS: 0.9 % Sodium Chloride Flush 3 ML SYRINGE IVFLUSH ×2 (09:08→16:33)
--- NOTE | 2021-06-26 14:34 | P.PNIM_ITS ---
Subjective Subjective Date of Service: 06/26/21 Interval History: states breathing improved with IV Lasix. Ambulating in the hallway without shortness of breath Review of Systems denies chest pain Denies shortness of breath Denies nausea vomiting diarrhea Physical Exam Vital Signs: Vital Signs: Last Vital Signs Temp 97.1 F 06/26/21 11:37 Pulse 96 06/26/21 11:37 Resp 20 06/26/21 11:37 BP 129/64 06/26/21 11:37 Pulse Ox 95 06/26/21 11:37 BMI result Body Mass Index 42.8 Const: Other: in no acute distress Resp: Other: clear to auscultation bilaterally no rales rhonchi or wheezes Cardio: Other: no S4; positive S1-S2; no S3 murmurs rubs gallops GI: Other: obese; soft nontender normoactive bowel sounds. Extrem: Other: bilateral pitting edema... Improved Objective Data Active Medications Acetaminophen (Acetaminophen 325 Mg Tablet) 650 mg PO Q6H PRN PRN Reason: Pain, Mild (Pain Scale 1-3) Last Admin: 06/25/21 21:37 Dose: 650 mg Documented by: CASTILM Benzonatate (Benzonatate 100 Mg Capsule) 100 mg PO TID PRN PRN Reason: Cough Last Admin: 06/26/21 09:08 Dose: 100 mg Documented by: ZAIDEMA Enoxaparin Sodium (Enoxaparin Sodium 40 Mg/0.4 Ml Syringe) 40 mg SUBCUT Q24H [facility] Last Admin: 06/25/21 17:15 Dose: 40 mg Documented by: NGENOAL Furosemide (Furosemide 100 Mg/10 Ml Vial) 80 mg IVPUSH BID@0900,1800 [facility]; Protocol Last Admin: 06/26/21 09:08 Dose: 80 mg Documented by: COTEMA Isosorbide Mononitrate (Isosorbide Mononitrate 30 Mg Tab.Er.24h) 30 mg PO DAILY [facility]; Protocol Last Admin: 06/26/21 09:08 Dose: 30 mg Documented by: COTEMA Lisinopril (Lisinopril 10 Mg Tablet) 10 mg PO DAILY [facility]; Protocol Last Admin: 06/26/21 09:08 Dose: 10 mg Documented by: COTEMA Ondansetron HCl (Ondansetron Hcl 4 Mg/2 Ml Vial) 4 mg IVPUSH Q8H PRN PRN Reason: Nausea and Vomiting Pharmacy Consult (Consult Rx Perform Med Rec) 1 each MISCELLANE ONCE PRN PRN Reason: Consult order Sodium Chloride (0.9 % Sodium Chloride Flush 3 Ml Syringe) 3 ml IVFLUSH QSHIFT [facility] Last Admin: 06/26/21 09:08 Dose: 3 ml Documented by: JOSHUA Labs CBC & Chem 7: 06/26/21 05:31 06/26/21 05:31 Labs: Laboratory Results - last 24 hr 06/26/21 06/26/21 05:31 05:31 MCV 87.7 MCH 27.2 MCHC 31.0 RDW 14.0 Plt Count 209 MPV 10.7 Immature Gran % (Auto) 0.2 Neut % (Auto) 74.2 H Lymph % (Auto) 13.2 L [place] % (Auto) 10.2 Eos % (Auto) 1.9 Baso % (Auto) 0.3 Lymph # (Auto) 1.2 [place] # (Auto) 0.9 Eos # (Auto) 0.2 Baso # (Auto) 0.0 Abs Immat Gran (auto) 0.02 Absolute Neuts (auto) 6.6 Absolute Nucleated RBC 0.000 Nucleated RBC % (auto) 0.0 Anion Gap 14 Estim Creat Clear Calc 115.9 Estimated GFR > 60 Fasting Glucose 104 H Calcium 8.9 Magnesium 1.8 Total Bilirubin 1.5 H AST 22 ALT 22 Alkaline Phosphatase 89 Total Protein 6.2 L Albumin 3.7 Assessment and Plan (1) CHF (congestive heart failure): Status: Acute (2) HTN (hypertension): Status: Acute Assessment and Plan: 45-year-old man admitted with acute congestive heart failure with no history of cardiac disease; improved with diuresis but still mildly edematous 1.Acute Systolic CHF Moderate response to Lasix 80 b.i.d.; still with pitting edema of legs Will discuss D/C Lasix in favor of Bumex with Cardiology Will add K+ supplements Follow divalents/creat daily 2. HTN Modest improvement with increase lisinopril to 10 mg daily;await Cards input re: diuresis Follow daily divalents and creatinine 3. Morbid obesity likely ÁNGEL CPaP at ;Outpatient study DVT prophylaxis with Lovenox Quality Stroke Does the patient have a stroke diagnosis?: No VTE Prior VTE?: No VTE Risk Level:: Medical - moderate - high VTE Device Contraindication: Treatment Not Indicated VTE Drug Contraindication: N/A - Med Ordered
--- NOTE | 2021-06-26 15:27 | PM.PNCARD ---
Subjective Subjective Date of Service: 06/26/21 Interval history: He is saying his breathing is better. He has dry cough specially when when he is lying down. Continues to have volume overload. Physical Exam Vital Signs: Last Vital Signs Temp 97.1 F 06/26/21 11:37 Pulse 96 06/26/21 11:37 Resp 20 06/26/21 11:37 BP 129/64 06/26/21 11:37 Pulse Ox 95 06/26/21 11:37 BMI result Body Mass Index 42.8 GENERAL APPEARANCE: in no acute distress, pleasant. NECK: no carotid bruit, + jugular venous distention. SKIN: no suspicious lesions, warm and dry. HEART: no murmurs, regular rate and rhythm. LUNGS: clear to auscultation bilaterally. ABDOMEN: soft, nontender. EXTREMITIES: 1-2+ edema. PERIPHERAL PULSES: equal. NEUROLOGIC: No gross deficits, AAO X 3 Objective Labs and Meds Result diagrams: 06/26/21 05:31 06/26/21 05:31 Lab results: Laboratory Results - last 24 hr 06/26/21 06/26/21 05:31 05:31 WBC 8.8 RBC 4.71 Hgb 12.8 L Hct 41.3 L MCV 87.7 MCH 27.2 MCHC 31.0 RDW 14.0 Plt Count 209 MPV 10.7 Immature Gran % (Auto) 0.2 Neut % (Auto) 74.2 H Lymph % (Auto) 13.2 L [place] % (Auto) 10.2 Eos % (Auto) 1.9 Baso % (Auto) 0.3 Lymph # (Auto) 1.2 [place] # (Auto) 0.9 Eos # (Auto) 0.2 Baso # (Auto) 0.0 Abs Immat Gran (auto) 0.02 Absolute Neuts (auto) 6.6 Absolute Nucleated RBC 0.000 Nucleated RBC % (auto) 0.0 Sodium 141 Potassium 3.4 Chloride 101 Carbon Dioxide 29 Anion Gap 14 BUN 13 Creatinine 1.07 Estim Creat Clear Calc 115.9 Estimated GFR > 60 Fasting Glucose 104 H Calcium 8.9 Magnesium 1.8 Total Bilirubin 1.5 H AST 22 ALT 22 Alkaline Phosphatase 89 Total Protein 6.2 L Albumin 3.7 Progress Note: A&P Assessment and plan (1) HTN (hypertension): Status: Acute (2) CHF (congestive heart failure): Status: Acute (3) Cardiomyopathy: Status: Acute Assessment and Plan: Pleasant 45 year gentleman who is presenting for congestive heart failure and echocardiography is showing moderate LV dysfunction and RV dysfunction. Likely etiology is uncontrolled hypertension and sleep apnea. Still volume overloaded. Continue diuretics and give 2.5 mg metolazone before the next dose of furosemide. He is complaining of some dry cough is she is likely due to CHF but lisinopril can be the cause for that too. I think we change him to losartan. Also with losartan we can change him to Entresto down the line if required. Once close to euvolemic then I will introduce beta joel. He will need outpatient sleep study. Thank you for allowing me to participate in the care of your patient. Please feel free to contact me if you have any questions. Fall Risk Details Current Medications: Current Medications Acetaminophen (Acetaminophen 325 Mg Tablet) 650 mg PO Q6H PRN PRN Reason: Pain, Mild (Pain Scale 1-3) Last Admin: 06/25/21 21:37 Dose: 650 mg Documented by: Benzonatate (Benzonatate 100 Mg Capsule) 100 mg PO TID PRN PRN Reason: Cough Last Admin: 06/26/21 09:08 Dose: 100 mg Documented by: Enoxaparin Sodium (Enoxaparin Sodium 40 Mg/0.4 Ml Syringe) 40 mg SUBCUT Q24H [facility] Last Admin: 06/25/21 17:15 Dose: 40 mg Documented by: Furosemide (Furosemide 100 Mg/10 Ml Vial) 80 mg IVPUSH BID@0900,1800 [facility]; Protocol Last Admin: 06/26/21 09:08 Dose: 80 mg Documented by: Isosorbide Mononitrate (Isosorbide Mononitrate 30 Mg Tab.Er.24h) 30 mg PO DAILY [facility]; Protocol Last Admin: 06/26/21 09:08 Dose: 30 mg Documented by: Lisinopril (Lisinopril 10 Mg Tablet) 10 mg PO DAILY [facility]; Protocol Last Admin: 06/26/21 09:08 Dose: 10 mg Documented by: Ondansetron HCl (Ondansetron Hcl 4 Mg/2 Ml Vial) 4 mg IVPUSH Q8H PRN PRN Reason: Nausea and Vomiting Pharmacy Consult (Consult Rx Perform Med Rec) 1 each MISCELLANE ONCE PRN PRN Reason: Consult order Potassium Chloride (Potassium Chloride Packet 20 Meq Packet) 40 meq PO DAILY [facility] Sodium Chloride (0.9 % Sodium Chloride Flush 3 Ml Syringe) 3 ml IVFLUSH QSHIFT [facility] Last Admin: 06/26/21 09:08 Dose: 3 ml Documented by: Time Spent With Patient Time: Total time spent is greater than 50% in coordination of care (as documented) at patient's floor/unit and/or counseling patient: Time with patient: 25 - 35 minutes Progress Note: Quality Stroke Does the patient have a stroke diagnosis?: No Procedures Date of Service Date of Service: 06/26/21
[2021-06-26] MEDS: Potassium Chloride Packet 20 MEQ PACKET 40 MEQ PO (16:32)
[2021-06-26] MEDS: Enoxaparin Sodium 40 MG/0.4 ML SYRINGE SUBCUT (16:32)
[2021-06-27] MEDS: 0.9 % Sodium Chloride Flush 3 ML SYRINGE IVFLUSH ×3 (01:03→17:02)
[2021-06-27 04:00] VITALS: BP 140/88; PULSE 93; RESP 16; TEMP 36.2; O2SAT 92
[2021-06-27 05:46] LABS: MANUAL DIFF FLAG NO
[2021-06-27 05:52] LABS: Basophils Percent Auto 0.4 % (0-2); Eosinophils Absolute Auto 0.2 X10*3/uL (0.0-0.4); Eosinophils Percent Auto 2.6 % (0-4); Hematocrit 43.3 % (42.0-52.0); Hemoglobin 13.3 g/dl (14.0-18.0); Imm Gran Abs Auto 0.02 X10*3/uL (0.00-0.03); Imm Gran Pct Auto 0.2 % (0.0-0.4); Lymphocytes Percent Auto 23.7 % (20-40); Mean Corpuscular HGB Conc 30.7 g/dl (31.0-36.0); Mean Corpuscular Hemoglobin 26.7 pg (27.0-33.0); Mean Corpuscular Volume 86.9 fL (80.0-98.0); Mean Platelet Volume 11.1 fL (9.4-12.4); Monocytes Absolute Auto 0.9 X10*3/uL (0.1-1.2); Monocytes Percent Auto 10.7 % (2-11); Neutrophils Absolute Auto 5.1 x10*3/uL (2.0-8.3); Neutrophils Percent Auto 62.4 % (45-73); Platelet Count 236 X10*3/uL (160-400); Red Blood Count 4.98 X10*6/uL (4.60-5.80); Red Cell Distribution Width 13.7 % (11.0-16.0); White Blood Count 8.2 X10*3/uL (4.8-10.8)
[2021-06-27 06:15] LABS: Alanine Aminotransferase 26 U/L (0-40); Albumin Level 3.7 g/dL (3.5-5.0); Alkaline Phosphatase 88 U/L (39-117); Anion Gap 12 (12-20); Aspartate Amino Transferase 25 U/L (5-37); Bilirubin Total 0.9 mg/dL (0.0-1.0); Blood Urea Nitrogen 14 mg/dL (9-16); Calcium 8.9 mg/dL (8.4-10.2); Carbon Dioxide 33 mmol/L (22-29); Chloride 102 mmol/L (96-108); Creatinine Clr Calc Pharmacy 126.6; Estimated Glomerular Filt Rate > 60; Glucose Fasting 99 mg/dL (60-99); Magnesium 1.9 mg/dL (1.6-2.6); Potassium 3.6 mmol/L (3.3-5.1); Sodium 143 mmol/L (135-145); Total Protein 6.3 g/dL (6.5-8.0)
[2021-06-27 07:28] VITALS: BP 138/68; PULSE 86; RESP 17; TEMP 36.2; O2SAT 96
[2021-06-27] MEDS: Furosemide 100 MG/10 ML VIAL 80 MG IVPUSH ×2 (08:08→17:02)
[2021-06-27] MEDS: Spironolactone 25 MG TABLET PO (08:09)
[2021-06-27] MEDS: Isosorbide Mononitrate 30 MG TAB.ER.24H PO (08:09)
[2021-06-27] MEDS: Potassium Chloride Packet 20 MEQ PACKET 40 MEQ PO (08:09)
[2021-06-27] MEDS: metOLazone 2.5 MG TABLET PO (08:09)
[2021-06-27] MEDS: Losartan Potassium 50 MG TABLET PO (08:09)
--- NOTE | 2021-06-27 09:11 | P.PNCA_ITS ---
Subjective Subjective Date of Service: 06/27/21 Interval history: Still overloaded. Physical Exam Vital Signs: Last Vital Signs Temp 97.1 F 06/27/21 07:28 Pulse 86 06/27/21 07:28 Resp 17 06/27/21 07:28 BP 138/68 06/27/21 07:28 Pulse Ox 96 06/27/21 07:28 BMI result Body Mass Index 42.8 GENERAL APPEARANCE: in no acute distress, pleasant. NECK: no carotid bruit, + jugular venous distention. SKIN: no suspicious lesions, warm and dry. HEART: no murmurs, regular rate and rhythm. LUNGS: clear to auscultation bilaterally. ABDOMEN: soft, nontender. EXTREMITIES: 1-2+ edema. PERIPHERAL PULSES: equal. NEUROLOGIC: No gross deficits, AAO X 3 Objective Labs and Meds Result diagrams: 06/27/21 05:34 06/27/21 05:34 Lab results: Laboratory Results - last 24 hr 06/27/21 06/27/21 05:34 05:34 WBC 8.2 RBC 4.98 Hgb 13.3 L Hct 43.3 MCV 86.9 MCH 26.7 L MCHC 30.7 L RDW 13.7 Plt Count 236 MPV 11.1 Immature Gran % (Auto) 0.2 Neut % (Auto) 62.4 Lymph % (Auto) 23.7 [place] % (Auto) 10.7 Eos % (Auto) 2.6 Baso % (Auto) 0.4 Lymph # (Auto) 2.0 [place] # (Auto) 0.9 Eos # (Auto) 0.2 Baso # (Auto) 0.0 Abs Immat Gran (auto) 0.02 Absolute Neuts (auto) 5.1 Absolute Nucleated RBC 0.000 Nucleated RBC % (auto) 0.0 Sodium 143 Potassium 3.6 Chloride 102 Carbon Dioxide 33 H Anion Gap 12 BUN 14 Creatinine 0.98 Estim Creat Clear Calc 126.6 Estimated GFR > 60 Fasting Glucose 99 Calcium 8.9 Magnesium 1.9 Total Bilirubin 0.9 AST 25 ALT 26 Alkaline Phosphatase 88 Total Protein 6.3 L Albumin 3.7 Progress Note: A&P Assessment and plan (1) HTN (hypertension): Status: Acute (2) CHF (congestive heart failure): Status: Acute (3) Cardiomyopathy: Status: Acute Assessment and Plan: Pleasant 45 year gentleman who is presenting for congestive heart failure and echocardiography is showing moderate LV dysfunction and RV dysfunction.? Likely etiology is uncontrolled hypertension and sleep apnea.? Still volume overloaded.? Continue diuretics and give one more dose of metolazone. Add Coreg 3.125 mg BID tomorrow morning. We will follow along. Fall Risk Details Current Medications: Current Medications Acetaminophen (Acetaminophen 325 Mg Tablet) 650 mg PO Q6H PRN PRN Reason: Pain, Mild (Pain Scale 1-3) Last Admin: 06/25/21 21:37 Dose: 650 mg Documented by: Benzonatate (Benzonatate 100 Mg Capsule) 100 mg PO TID PRN PRN Reason: Cough Last Admin: 06/26/21 09:08 Dose: 100 mg Documented by: Enoxaparin Sodium (Enoxaparin Sodium 40 Mg/0.4 Ml Syringe) 40 mg SUBCUT Q24H [facility] Last Admin: 06/26/21 16:32 Dose: 40 mg Documented by: Furosemide (Furosemide 100 Mg/10 Ml Vial) 80 mg IVPUSH BID@0900,1800 [facility]; Protocol Last Admin: 06/27/21 08:08 Dose: 80 mg Documented by: Isosorbide Mononitrate (Isosorbide Mononitrate 30 Mg Tab.Er.24h) 30 mg PO DAILY [facility]; Protocol Last Admin: 06/27/21 08:09 Dose: 30 mg Documented by: Losartan Potassium (Losartan Potassium 50 Mg Tablet) 50 mg PO DAILY [facility]; Protocol Last Admin: 06/27/21 08:09 Dose: 50 mg Documented by: Ondansetron HCl (Ondansetron Hcl 4 Mg/2 Ml Vial) 4 mg IVPUSH Q8H PRN PRN Reason: Nausea and Vomiting Pharmacy Consult (Consult Rx Perform Med Rec) 1 each MISCELLANE ONCE PRN PRN Reason: Consult order Potassium Chloride (Potassium Chloride Packet 20 Meq Packet) 40 meq PO DAILY [facility] Last Admin: 06/27/21 08:09 Dose: 40 meq Documented by: Sodium Chloride (0.9 % Sodium Chloride Flush 3 Ml Syringe) 3 ml IVFLUSH QSHIFT [facility] Last Admin: 06/27/21 08:08 Dose: 3 ml Documented by: Spironolactone (Spironolactone 25 Mg Tablet) 25 mg PO DAILY [facility]; Protocol Last Admin: 06/27/21 08:09 Dose: 25 mg Documented by: Time Spent With Patient Time: Total time spent is greater than 50% in coordination of care (as documented) at patient's floor/unit and/or counseling patient: Time with patient: 15 - 24 minutes Progress Note: Quality Stroke Does the patient have a stroke diagnosis?: No Procedures Date of Service Date of Service: 06/27/21
--- NOTE | 2021-06-27 11:13 | P.PNIM_ITS ---
Subjective Subjective Date of Service: 06/27/21 Interval History: breathing improved and feels better however still aknowledge is swelling in his legs. Review of Systems Denies chest pain Denies shortness of breath Denies nausea vomiting diarrhea Physical Exam Vital Signs: Vital Signs: Last Vital Signs Temp 97.1 F 06/27/21 07:28 Pulse 86 06/27/21 07:28 Resp 17 06/27/21 07:28 BP 138/68 06/27/21 07:28 Pulse Ox 96 06/27/21 07:28 BMI result Body Mass Index 42.8 Const: Other: in no acute distress Resp: Other: clear to auscultation bilaterally no rales rhonchi or wheezes Cardio: Other: no S4; positive S1-S2; no S3 murmurs rubs gallops GI: Other: obese; soft nontender normoactive bowel sounds. Extrem: Other: bilateral pitting edema... Improved Objective Data Active Medications Acetaminophen (Acetaminophen 325 Mg Tablet) 650 mg PO Q6H PRN PRN Reason: Pain, Mild (Pain Scale 1-3) Last Admin: 06/25/21 21:37 Dose: 650 mg Documented by: CASTILM Benzonatate (Benzonatate 100 Mg Capsule) 100 mg PO TID PRN PRN Reason: Cough Last Admin: 06/26/21 09:08 Dose: 100 mg Documented by: ZAIDEMA Enoxaparin Sodium (Enoxaparin Sodium 40 Mg/0.4 Ml Syringe) 40 mg SUBCUT Q24H [facility] Last Admin: 06/26/21 16:32 Dose: 40 mg Documented by: ZAIDEMA Furosemide (Furosemide 100 Mg/10 Ml Vial) 80 mg IVPUSH BID@0900,1800 [facility]; Protocol Last Admin: 06/27/21 08:08 Dose: 80 mg Documented by: FAMILIA Isosorbide Mononitrate (Isosorbide Mononitrate 30 Mg Tab.Er.24h) 30 mg PO DAILY [facility]; Protocol Last Admin: 06/27/21 08:09 Dose: 30 mg Documented by: FAMILIA Losartan Potassium (Losartan Potassium 50 Mg Tablet) 50 mg PO DAILY [facility]; Protocol Last Admin: 06/27/21 08:09 Dose: 50 mg Documented by: FAMILIA Ondansetron HCl (Ondansetron Hcl 4 Mg/2 Ml Vial) 4 mg IVPUSH Q8H PRN PRN Reason: Nausea and Vomiting Pharmacy Consult (Consult Rx Perform Med Rec) 1 each MISCELLANE ONCE PRN PRN Reason: Consult order Potassium Chloride (Potassium Chloride Packet 20 Meq Packet) 40 meq PO DAILY [facility] Last Admin: 06/27/21 08:09 Dose: 40 meq Documented by: FAMILIA Sodium Chloride (0.9 % Sodium Chloride Flush 3 Ml Syringe) 3 ml IVFLUSH QSHIFT [facility] Last Admin: 06/27/21 08:08 Dose: 3 ml Documented by: FAMILIA Spironolactone (Spironolactone 25 Mg Tablet) 25 mg PO DAILY [facility]; Protocol Last Admin: 06/27/21 08:09 Dose: 25 mg Documented by: FAMILIA Labs CBC & Chem 7: 06/27/21 05:34 06/27/21 05:34 Labs: Laboratory Results - last 24 hr 06/27/21 06/27/21 05:34 05:34 MCV 86.9 MCH 26.7 L MCHC 30.7 L RDW 13.7 Plt Count 236 MPV 11.1 Immature Gran % (Auto) 0.2 Neut % (Auto) 62.4 Lymph % (Auto) 23.7 [place] % (Auto) 10.7 Eos % (Auto) 2.6 Baso % (Auto) 0.4 Lymph # (Auto) 2.0 [place] # (Auto) 0.9 Eos # (Auto) 0.2 Baso # (Auto) 0.0 Abs Immat Gran (auto) 0.02 Absolute Neuts (auto) 5.1 Absolute Nucleated RBC 0.000 Nucleated RBC % (auto) 0.0 Anion Gap 12 Estim Creat Clear Calc 126.6 Estimated GFR > 60 Fasting Glucose 99 Calcium 8.9 Magnesium 1.9 Total Bilirubin 0.9 AST 25 ALT 26 Alkaline Phosphatase 88 Total Protein 6.3 L Albumin 3.7 Assessment and Plan (1) CHF (congestive heart failure): Status: Acute (2) HTN (hypertension): Status: Acute Assessment and Plan: 45-year-old man admitted with acute congestive heart failure with no history of cardiac disease; improved with diuresis but still mildly edematous 1.Acute Systolic CHF Output doubled with addition of metolazone. . . Now approximately 5.5 L negative Increase K+ supplements Follow divalents/creat daily 2. HTN Losartan/Aldactone added with good respose Add Coreg 3.125mg BID in am per Cards Follow daily divalents and creatinine 3. Morbid obesity likely ÁNGEL CPaP at ;Outpatient study DVT prophylaxis with Lovenox Quality Stroke Does the patient have a stroke diagnosis?: No VTE Prior VTE?: No VTE Risk Level:: Medical - moderate - high VTE Device Contraindication: Treatment Not Indicated VTE Drug Contraindication: N/A - Med Ordered
[2021-06-27 15:43] VITALS: BP 166/94; PULSE 92; RESP 18; TEMP 36.2; O2SAT 94
[2021-06-27] MEDS: Enoxaparin Sodium 40 MG/0.4 ML SYRINGE SUBCUT (17:02)
[2021-06-27 19:30] VITALS: BP 129/65; PULSE 98; RESP 17; TEMP 36.4; O2SAT 93
[2021-06-27 23:25] VITALS: BP 149/89; PULSE 94; RESP 18; TEMP 36.2; O2SAT 95
[2021-06-28] MEDS: 0.9 % Sodium Chloride Flush 3 ML SYRINGE IVFLUSH ×2 (01:49→09:04)
[2021-06-28 05:07] LABS: MANUAL DIFF FLAG NO
[2021-06-28 05:18] LABS: Basophils Percent Auto 0.2 % (0-2); Eosinophils Absolute Auto 0.2 X10*3/uL (0.0-0.4); Eosinophils Percent Auto 2.7 % (0-4); Hematocrit 45.1 % (42.0-52.0); Hemoglobin 14.3 g/dl (14.0-18.0); Imm Gran Abs Auto 0.01 X10*3/uL (0.00-0.03); Imm Gran Pct Auto 0.1 % (0.0-0.4); Lymphocytes Absolute Auto 1.8 X10*3/uL (1.2-4.9); Mean Corpuscular HGB Conc 31.7 g/dl (31.0-36.0); Mean Corpuscular Hemoglobin 27.3 pg (27.0-33.0); Mean Corpuscular Volume 86.1 fL (80.0-98.0); Mean Platelet Volume 11.5 fL (9.4-12.4); Monocytes Absolute Auto 1.1 X10*3/uL (0.1-1.2); Monocytes Percent Auto 13.4 % (2-11); Neutrophils Percent Auto 61.6 % (45-73); Platelet Count 248 X10*3/uL (160-400); Red Blood Count 5.24 X10*6/uL (4.60-5.80); Red Cell Distribution Width 13.6 % (11.0-16.0); White Blood Count 8.1 X10*3/uL (4.8-10.8)
[2021-06-28 05:50] LABS: Alanine Aminotransferase 29 U/L (0-40); Albumin Level 3.7 g/dL (3.5-5.0); Alkaline Phosphatase 88 U/L (39-117); Anion Gap 17 (12-20); Aspartate Amino Transferase 26 U/L (5-37); Bilirubin Total 0.8 mg/dL (0.0-1.0); Blood Urea Nitrogen 22 mg/dL (9-16); Calcium 9.2 mg/dL (8.4-10.2); Carbon Dioxide 31 mmol/L (22-29); Chloride 96 mmol/L (96-108); Creatinine Clr Calc Pharmacy 109.8; Estimated Glomerular Filt Rate > 60; Glucose Fasting 96 mg/dL (60-99); Potassium 3.2 mmol/L (3.3-5.1); Sodium 141 mmol/L (135-145); Total Protein 6.4 g/dL (6.5-8.0)
[2021-06-28 08:00] VITALS: BP 133/78; PULSE 92; RESP 18; TEMP 36.4; O2SAT 94
[2021-06-28 09:02] VITALS: BP 133/78; PULSE 92
[2021-06-28] MEDS: Losartan Potassium 50 MG TABLET PO (09:02)
[2021-06-28] MEDS: Isosorbide Mononitrate 30 MG TAB.ER.24H PO (09:02)
[2021-06-28] MEDS: Potassium Chloride Packet 20 MEQ PACKET 40 MEQ PO (09:02)
[2021-06-28 09:03] VITALS: BP 133/78; PULSE 92
[2021-06-28] MEDS: Furosemide 100 MG/10 ML VIAL 80 MG IVPUSH (09:03)
[2021-06-28] MEDS: Spironolactone 25 MG TABLET PO (09:03)
[2021-06-28] MEDS: metOLazone 2.5 MG TABLET PO (09:05)
--- NOTE | 2021-06-28 09:38 | P.PNCA_ITS ---
Subjective Subjective Date of Service: 06/28/21 Interval history: Feeling better. No shortness of breath. He has been walking the hallways without any symptoms. Physical Exam Vital Signs: Last Vital Signs Temp 97.6 F 06/28/21 08:00 Pulse 92 06/28/21 09:03 Resp 18 06/28/21 08:00 BP 133/78 06/28/21 09:03 Pulse Ox 94 06/28/21 08:00 BMI result Body Mass Index 42.8 GENERAL APPEARANCE: in no acute distress, pleasant. NECK: no carotid bruit, no significant JVD. SKIN: no suspicious lesions, warm and dry. HEART: no murmurs, regular rate and rhythm. LUNGS: clear to auscultation bilaterally. ABDOMEN: soft, nontender. EXTREMITIES: Trace edema.. PERIPHERAL PULSES: equal. NEUROLOGIC: No gross deficits, AAO X 3 Objective Labs and Meds Result diagrams: 06/28/21 04:07 06/28/21 04:07 Lab results: Laboratory Results - last 24 hr 06/28/21 06/28/21 04:07 04:07 WBC 8.1 RBC 5.24 Hgb 14.3 Hct 45.1 MCV 86.1 MCH 27.3 MCHC 31.7 RDW 13.6 Plt Count 248 MPV 11.5 Immature Gran % (Auto) 0.1 Neut % (Auto) 61.6 Lymph % (Auto) 22.0 [place] % (Auto) 13.4 H Eos % (Auto) 2.7 Baso % (Auto) 0.2 Lymph # (Auto) 1.8 [place] # (Auto) 1.1 Eos # (Auto) 0.2 Baso # (Auto) 0.0 Abs Immat Gran (auto) 0.01 Absolute Neuts (auto) 5.0 Absolute Nucleated RBC 0.000 Nucleated RBC % (auto) 0.0 Sodium 141 Potassium 3.2 L Chloride 96 Carbon Dioxide 31 H Anion Gap 17 BUN 22 H D Creatinine 1.13 Estim Creat Clear Calc 109.8 Estimated GFR > 60 Fasting Glucose 96 Calcium 9.2 Magnesium 2.0 Total Bilirubin 0.8 AST 26 ALT 29 Alkaline Phosphatase 88 Total Protein 6.4 L Albumin 3.7 Progress Note: A&P Assessment and plan (1) HTN (hypertension): Status: Acute (2) CHF (congestive heart failure): Status: Acute (3) Cardiomyopathy: Status: Acute Assessment and Plan: 45-year-old gentleman presenting with new onset congestive heart failure with biventricular dysfunction. He had elevated blood pressures which is 1 potential cause for his presentation. Also has obesity and snoring at night. I think sleep apnea is other p ossibility. Currently appears more lasting euvolemic. I think we start him on Bumex 2 mg twice a day and Coreg 3.125 mg twice a day. If he feels fine then he can be discharged home. He needs outpatient sleep study. Repeat BMP in 7-10 days. We will bring him in office in few weeks. Thank you for allowing me to participate in the care of your patient. Please feel free to contact me if you have any questions. Fall Risk Details Current Medications: Current Medications Acetaminophen (Acetaminophen 325 Mg Tablet) 650 mg PO Q6H PRN PRN Reason: Pain, Mild (Pain Scale 1-3) Last Admin: 06/25/21 21:37 Dose: 650 mg Documented by: Benzonatate (Benzonatate 100 Mg Capsule) 100 mg PO TID PRN PRN Reason: Cough Last Admin: 06/26/21 09:08 Dose: 100 mg Documented by: Enoxaparin Sodium (Enoxaparin Sodium 40 Mg/0.4 Ml Syringe) 40 mg SUBCUT Q24H [facility] Last Admin: 06/27/21 17:02 Dose: 40 mg Documented by: Furosemide (Furosemide 100 Mg/10 Ml Vial) 80 mg IVPUSH BID@0900,1800 [facility]; Protocol Last Admin: 06/28/21 09:03 Dose: 80 mg Documented by: Isosorbide Mononitrate (Isosorbide Mononitrate 30 Mg Tab.Er.24h) 30 mg PO DAILY [facility]; Protocol Last Admin: 06/28/21 09:02 Dose: 30 mg Documented by: Losartan Potassium (Losartan Potassium 50 Mg Tablet) 50 mg PO DAILY [facility]; Protocol Last Admin: 06/28/21 09:02 Dose: 50 mg Documented by: Ondansetron HCl (Ondansetron Hcl 4 Mg/2 Ml Vial) 4 mg IVPUSH Q8H PRN PRN Reason: Nausea and Vomiting Pharmacy Consult (Consult Rx Perform Med Rec) 1 each MISCELLANE ONCE PRN PRN Reason: Consult order Potassium Chloride (Potassium Chloride Packet 20 Meq Packet) 40 meq PO BID [facility] Last Admin: 06/28/21 09:02 Dose: 40 meq Documented by: Sodium Chloride (0.9 % Sodium Chloride Flush 3 Ml Syringe) 3 ml IVFLUSH QSHIFT [facility] Last Admin: 06/28/21 09:04 Dose: 3 ml Documented by: Spironolactone (Spironolactone 25 Mg Tablet) 25 mg PO DAILY [facility]; Protocol Last Admin: 06/28/21 09:03 Dose: 25 mg Documented by: Time Spent With Patient Time: Total time spent is greater than 50% in coordination of care (as documented) at patient's floor/unit and/or counseling patient: Time with patient: 15 - 24 minutes Progress Note: Quality Stroke Does the patient have a stroke diagnosis?: No Procedures Date of Service Date of Service: 06/28/21
--- NOTE | 2021-06-28 10:29 | P.DS_ITS ---
DS: Providers Provider Date of Service: 06/28/21 Date of admission: 06/24/21 15:06 Primary care physician: None Physician Consults: 06/24/21 15:09 Consult to Cardiology Routine Consulting Provider: Dmitriy Cornelius Reason for consultation: acute chf Has provider been notified: No DS: Diagnosis Discharge Diagnosis (1) HTN (hypertension): Status: Acute (2) CHF (congestive heart failure): Status: Acute (3) Cardiomyopathy: Status: Acute DS: Summary Hospital Course Hospital Course: 45-year-old man presented with complaints of worsening shortness of breath over the last several weeks with swelling to his lower extremities.? He reports actually has had this progressive shortness of breath over the last year.? He d oes not have a PCP and has not seen a PCP in many years.? Is obese and according to him he has no medical problems.? He has noticed that his shortness of breath increased with activity especially going up stairs.? He has been waking up in the middle of the night with shortness of breath and he is unable to lay flat must use several pillows.? He also reported some chest pressure especially with activity and when he has taken a deep breath.? He reports that rest does alleviate this.? He denied any radiation or other associated symptoms.? Denies any history of heart disease.? He reports that his father approximately 2 weeks ago.? He denied recent illness, fever, chills, nausea, vomiting, diarrhea, cough.? In the ER his BNP was noted to be elevated at 788, chest x-ray showed enlarged cardiac silhouette with pulmonary venous redistribution, blood pressure was noted to be elevated and patient denies any history of high blood pressure.? He was given 2 doses of 40 mg of IV Lasix as well as Tessalon Perles for a cough.? Hospital Course Admitted 2 telemetry; cardiology consult obtained. Patient aggressively diuresed with Lasix 80 mg IV. He had modest response to the Lasix but not significant enough to totally resolve his edema. Metolazone was added with good effect. As per cardiology,losartan was added along with Aldactone for more adequate control of HTN. On the day of discharge, he is improved; ambulatory without shortness of breath. he will be DC 'd after beginning Coreg 3.125 and will follow-up with Cardiology. Patient is instructed to find a new PCP follow-up. Of note, patient will need sleep study as this may be contributing to his edema Time Spent with Patient Time attestation: Total time spent providing and/or coordinating discharge services: Discharge coordination time: Greater than 30 minutes Quality: Stroke Does the patient have a stroke diagnosis?: No Physical Exam Vital Signs: Vital Signs: Last Vital Signs Temp 97.6 F 06/28/21 08:00 Pulse 92 06/28/21 09:03 Resp 18 06/28/21 08:00 BP 133/78 06/28/21 09:03 Pulse Ox 94 06/28/21 08:00 BMI result Body Mass Index 42.8 Const: Other: in no acute distress Resp: Other: clear to auscultation bilaterally no rales rhonchi or wheezes Cardio: Other: no S4; positive S1-S2; no S3 murmurs rubs gallops GI: Other: obese; soft nontender normoactive bowel sounds. Extrem: Other: bilateral pitting edema... Improved DS: Data Data Completed and Pending Labs on day of discharge: Laboratory Results - last 24 hr 06/28/21 06/28/21 04:07 04:07 WBC 8.1 RBC 5.24 Hgb 14.3 Hct 45.1 MCV 86.1 MCH 27.3 MCHC 31.7 RDW 13.6 Plt Count 248 MPV 11.5 Immature Gran % (Auto) 0.1 Neut % (Auto) 61.6 Lymph % (Auto) 22.0 [place] % (Auto) 13.4 H Eos % (Auto) 2.7 Baso % (Auto) 0.2 Lymph # (Auto) 1.8 [place] # (Auto) 1.1 Eos # (Auto) 0.2 Baso # (Auto) 0.0 Abs Immat Gran (auto) 0.01 Absolute Neuts (auto) 5.0 Absolute Nucleated RBC 0.000 Nucleated RBC % (auto) 0.0 Sodium 141 Potassium 3.2 L Chloride 96 Carbon Dioxide 31 H Anion Gap 17 BUN 22 H D Creatinine 1.13 Estim Creat Clear Calc 109.8 Estimated GFR > 60 Fasting Glucose 96 Calcium 9.2 Magnesium 2.0 Total Bilirubin 0.8 AST 26 ALT 29 Alkaline Phosphatase 88 Total Protein 6.4 L Albumin 3.7 Discharge Plan Discharge Patient Disposition: Home, Self-Care Discharge Diagnosis: CHF Referrals: Physician,None [Primary Care Provider] - 1 Week Discharge Medications: New losartan 50 mg Tablet 50 mg PO DAILY Qty: 30 RF: 2 isosorbide mononitrate 30 mg Tablet Extended Release 24 Hr 30 mg PO DAILY Qty: 30 RF: 2 spironolactone 25 mg Tablet 25 mg PO DAILY Qty: 30 RF: 2 potassium chloride 20 mEq Packet 40 meq PO BID Qty: 120 RF: 2 bumetanide 1 mg tablet 1 mg PO BID Qty: 60 RF: 2 carvedilol [Coreg] 3.125 mg tablet 3.125 mg PO BID Qty: 60 RF: 2 Discontinued acetaminophen 325 mg Tablet 650 mg PO Q6H PRN (Reason: Pain) RF: 0 Discharge Orders: Discharge Order (Routine); Ordered 06/28/21 Ordered By: Low Godoy Diet: advance to usual diet Activity on Discharge: As tolerated Stand Alone Forms: Patient Portal Discharge page Care Plan Goals: complete course of oral antibiotics Health Concerns: if no improvement follow-up with PCP Plan of Treatment: doxycycline twice a day for 10 days Assessment: as above
--- NOTE | 2021-06-28 10:37 | MHC.CM.PN ---
PT TO DC HOME TODAY WITH NO SERVICES PT TO ARRANGE TRANSPORTATION
[2021-06-28] MEDS: carvediloL 3.125 MG TABLET PO (11:47)
[2021-06-28 12:00] VITALS: BP 117/58; PULSE 105; RESP 18; TEMP 36.3; O2SAT 92
== END 2021-06-28 13:10 | disposition home or self-care (01) | DRG 194 ==
LOC: HO.ED 11:41 → HO.EDOVER 15:18 → HO.S3 19:19
PROVIDERS: Admitting Provider Nurse Practitioner Acute Care; Emergency Provider Emergency Medicine; Visit Provider Hospitalist
DX: I11.0 Hypertensive heart disease with heart failure (principal); I42.9 Cardiomyopathy, unspecified; G47.33 Obstructive sleep apnea (adult) (pediatric); E66.01 Morbid (severe) obesity due to excess calories; I50.21 Acute systolic (congestive) heart failure; Z68.41 Body mass index [BMI] 40.0-44.9, adult; Z20.822 Contact with and (suspected) exposure to COVID-19; Z79.899 Other long term (current) drug therapy
CPT/HCPCS: 36415; 71045; 80048; 80053; 80061; 80076; 83735; 83880; 84443; 84484; 85025; 86850; 86900; 86901; 87635; 93005; 93306; 93970; 96374; 96376; 99284; 99285; J1650; J1940; Q9957

== ENCOUNTER 2021-09-23 08:41 | Emergency (ER) | payer MEDICAID, SELFPAY ==
[2021-09-23 08:44] VITALS: BP 143/77; PULSE 95; RESP 18; TEMP 36.8; O2SAT 97; BMI 44.8
--- NOTE | 2021-09-23 09:25 | ED_ITS ---
HPI - Back Pain/Injury General Chief Complaint: Back Pain/Injury Stated Complaint: LOWER L SIDE BACK HIP LEG PAIN Time Seen by Provider: 09/23/21 09:11 Source: patient Mode of arrival: ambulatory History of Present Illness HPI Narrative: 45-year-old male with a past medical history of diverticulitis, obesity, CHF, HTN, presenting to the ED complaining of left low back/buttock pain radiating down LLE x1 week. Denies known trauma/injury or fall. Reports associated numbness/tingling. Denies fever, chills, weakness, urinary incontinence/retention. Taking Tylenol with minimal relief MD elicited complaint: back pain Onset (ago): week(s) Related Data Previous Rx's Medication Instructions Recorded bumetanide 1 mg tablet 1 mg PO BID #60 tab 06/28/21 carvedilol 3.125 mg tablet (Coreg) 3.125 mg PO BID #60 tab 06/28/21 isosorbide mononitrate 30 mg 30 mg PO DAILY #30 tab 06/28/21 tablet,extended release 24 hr losartan 50 mg tablet 50 mg PO DAILY #30 tab 06/28/21 potassium chloride 20 mEq oral 40 meq PO BID #120 ea 06/28/21 packet spironolactone 25 mg tablet 25 mg PO DAILY #30 tab 06/28/21 hydrocortisone 2.5 % topical cream 1 appl TOPICAL BID PRN #20 g 07/20/21 acetaminophen 500 mg tablet 500 mg PO Q6H PRN #20 tab 09/23/21 (Tylenol Extra Strength) cyclobenzaprine 5 mg tablet 5 mg PO Q8H PRN 5 Days #14 tab 09/23/21 lidocaine 5 % topical patch 1 patch TOPICAL DAILY PRN #30 ea 09/23/21 (Lidoderm) MDD remove after 12 hours Allergies Allergy/AdvReac Type Severity Reaction Status Date / Time No Known Allergies Allergy Verified 07/20/21 15:17 [No Known Allergies*] Review of Systems Review of Systems: Constitutional: No Fever, No Chills ENT/Mouth: No Nasal Congestion, No sore throat, No Rhinorrhea, No Swallowing Difficulty Cardiovascular: No Chest Pain, No SOB Respiratory: No Cough, No Wheezing Gastrointestinal: No Nausea, No Vomiting, No Diarrhea, No Abdominal pain Genitourinary:, No Dysuria, No Urinary Frequency, No Hematuria, No Urinary Incontinence/retention, No Urgency, No Flank Pain Musculoskeletal: + joint pain, No Myalgias, No Joint Swelling Skin: No Skin Lesions, No rash Neuro: No Weakness, + Numbness, + Paresthesias Yes all other systems are reviewed and are negative Neurologic: Denies Sensory deficit (Neuro) [facility] Past Medical History Attestation statement: The following information was validated with the patient. Medical History Diverticulitis No known health problems Obesity Family History Family History Father Coronary artery disease CKD (chronic kidney disease) Other Colon cancer Social History Social History Household Members: Significant Other Housing: Apartment Do you presently have visiting nurse or other home services: No Alcohol intake: never Patient Tobacco Use Status: Former Tobacco user Cigarettes Per Day: 10 Years Smoked: 15 Advance Directives: No Advance Directives Information Provided: No service: No Current occupational status: employed Physical Exam Vital Signs: Vital Signs: Last Vital Signs Temp 98.2 F 09/23/21 08:44 Pulse 95 09/23/21 08:44 Resp 18 09/23/21 08:44 BP 143/77 H 09/23/21 08:44 Pulse Ox 97 09/23/21 08:44 BMI result Body Mass Index 44.8 Const: General: cooperative, healthy appearing and no acute distress Orientation/consciousness: patient oriented x3 Limitations: no limitations HENMT: Head: Yes normal to inspection and Yes atraumatic Ears: hearing grossly normal bilaterally General nose exam: Normal external nose present Face and sinus: Yes normal facial exam Eyes: General: appearance normal, both eyes and all related structures EOM: EOMs intact bilaterally Neck: Other: No midline cervical spine tenderness Neck: Yes normal visual inspection Resp: Effort & Inspection: normal respiratory effort and no respiratory distress Auscultation: clear to auscultation bilaterally Cardio: Rate: regular rate Heart sounds: S1 normal heart sound present and S2 normal heart sound present Peripheral pulses: dorsalis pedis present : General: Yes no CVA tenderness Back/Spine/Pelvis: Other: No midline thoracic/lumbar spinous tenderness/step-off or deformity. Left sided lumbar/buttock tenderness to palpation reproducing subjective complaint Back: no CVA tenderness Skin: Rashes: no rashes Wounds: no wounds Neuro: Other: No saddle anesthesia. Ambulating with steady gait. Strength intact throughout General: patient oriented x3, gait normal, tone normal and moves all extremities Gait exam (Neuro): Normal gait present Motor exam (neuro): 5/5 motor strength present throughout Sensory Exam: No Sensory deficit (Neuro) Extrem: General: Yes normal to inspection MDM - Back Pain/Injury MDM Narrative Medical decision making narrative: 45-year-old male with a past medical history of diverticulitis, obesity, CHF, HTN, presenting to the ED complaining of left low back/buttock pain radiating down LLE x1 week. On exam vital signs stable, NAD/well-appearing, physical exam as above. No midline spinous tenderness of, no red flag symptoms. Concern for sciatica vs MSK pain/strain. Unlikely cauda equina, cord compression, fracture, epidural abscess. Plan: Pain control, PT referral, PCP follow-up Differential Diagnosis Differential diagnosis: Likely lumbar radiculopathy Medical Records Attestation: I reviewed the patient's medical records. Lab Data Attestation: I reviewed the patient's lab results. Discharge Plan Discharge Clinical Impression: Sciatica Qualifiers: Laterality: left Qualified Code(s): M54.32 - Sciatica, left side Patient Disposition: Home, Self-Care Instructions: Sciatica (ED) Additional Instructions: Your pain is likely musculoskeletal Flexeril is a muscle relaxer, take at night as it makes you drowsy, do not drive, drink alcohol, or operate machinery while taking it Lidoderm patches are numbing patches, apply to painful area In addition take Tylenol at home If symptoms persist or worsen, pain becomes unbearable, you developed urinary retention or incontinence, or weakness return to the ED Contact [facility] for Physical therapy: [address] [address] ?[phone] tel: [phone] ? Physical Therapy services are also available at: [facility] in [address] [address] ?[phone] tel: [phone] ? [facility] in [address] [address] ?[phone] tel: [phone] Prescriptions: New acetaminophen [Tylenol Extra Strength] 500 mg tablet 500 mg PO Q6H PRN (Reason: pain or fever) Qty: 20 0RF lidocaine [Lidoderm] 5 % adhesive patch,medicated 1 patch topical DAILY MDD remove after 12 hours PRN (Reason: pain) Qty: 30 0RF Rx Instructions: leave on most painful area for up to 12 hrs cyclobenzaprine 5 mg tablet 5 mg PO Q8H PRN (Reason: pain (scale score 7-10)) 5 Days Qty: 14 0RF No Action losartan 50 mg Tablet 50 mg PO DAILY Qty: 30 2RF Protocol: Hold for SBP< HOLD for SBP < : 90 isosorbide mononitrate 30 mg Tablet Extended Release 24 Hr 30 mg PO DAILY Qty: 30 2RF Protocol: Hold for SBP< HOLD for SBP < : 90 spironolactone 25 mg Tablet 25 mg PO DAILY Qty: 30 2RF Protocol: Hold for SBP< HOLD for SBP < : 90 potassium chloride 20 mEq Packet 40 meq PO BID Qty: 120 2RF bumetanide 1 mg tablet 1 mg PO BID Qty: 60 2RF carvedilol [Coreg] 3.125 mg tablet 3.125 mg PO BID Qty: 60 2RF Rx Instructions: must administer with a meal/food hydrocortisone 2.5 % cream 1 appl topical BID PRN (Reason: rash) Qty: 20 0RF Referrals: Yamileth Reid FNP-C [Primary Care Provider] - 2 days
== END 2021-09-23 09:39 | disposition home or self-care (01) ==
PROVIDERS: Emergency Provider Emergency Medicine; PCP Nurse Practitioner Family
DX: M54.32 Sciatica, left side (principal); M54.50 Low back pain, unspecified; M25.552 Pain in left hip; M25.551 Pain in right hip; Z79.899 Other long term (current) drug therapy
CPT/HCPCS: 99283

== ENCOUNTER 2021-09-25 08:47 | Outpatient (REF) | payer MEDICAID, SELFPAY ==
[2021-09-25 09:47] LABS: Anion Gap 11 (12-20); Blood Urea Nitrogen 14 mg/dL (9-16); Calcium 9.1 mg/dL (8.4-10.2); Carbon Dioxide 31 mmol/L (22-29); Chloride 104 mmol/L (96-108); Cholesterol 286 mg/dL; Estimated Glomerular Filt Rate > 60; Glucose Fasting 91 mg/dL (60-99); HDL Cholesterol 49 mg/dL; LDL Cholesterol Calculated 185 mg/dl; Potassium 3.9 mmol/L (3.3-5.1); Sodium 142 mmol/L (135-145); Triglycerides 263 mg/dL
== END 2021-09-25 08:48 | disposition home or self-care (01) ==
LOC: HO.LAB 08:47
PROVIDERS: PCP Nurse Practitioner Family; Visit Provider Nurse Practitioner Family
DX: E78.00 Pure hypercholesterolemia, unspecified (principal); I50.9 Heart failure, unspecified; E87.6 Hypokalemia; Z76.89 Persons encountering health services in other specified circumstances
CPT/HCPCS: 36415; 80048; 80061

== ENCOUNTER 2022-01-04 11:44 | Outpatient (REF) | payer OTHER, SELFPAY ==
[2022-01-04 12:34] LABS: Hematocrit 41.5 % (42.0-52.0); Hemoglobin 13.6 g/dl (14.0-18.0); Mean Corpuscular HGB Conc 32.8 g/dl (31.0-36.0); Mean Corpuscular Hemoglobin 29.4 pg (27.0-33.0); Mean Corpuscular Volume 89.6 fL (80.0-98.0); Mean Platelet Volume 10.1 fL (9.4-12.4); Platelet Count 242 X10*3/uL (160-400); Red Blood Count 4.63 X10*6/uL (4.60-5.80); Red Cell Distribution Width 12.5 % (11.0-16.0); White Blood Count 8.9 X10*3/uL (4.8-10.8)
[2022-01-04 13:00] LABS: Alanine Aminotransferase 22 U/L (0-40); Alkaline Phosphatase 100 U/L (39-117); Anion Gap 14 (12-20); Aspartate Amino Transferase 15 U/L (5-37); Bilirubin Total 0.6 mg/dL (0.0-1.0); Blood Urea Nitrogen 16 mg/dL (9-16); Calcium 9.2 mg/dL (8.4-10.2); Carbon Dioxide 27 mmol/L (22-29); Chloride 105 mmol/L (96-108); Cholesterol 297 mg/dL; Estimated Glomerular Filt Rate > 60; Glucose Fasting 97 mg/dL (60-99); HDL Cholesterol 49 mg/dL; LDL Cholesterol Calculated 195 mg/dl; Potassium 4.2 mmol/L (3.3-5.1); Sodium 142 mmol/L (135-145); Total Protein 6.8 g/dL (6.5-8.0); Triglycerides 269 mg/dL
[2022-01-04 13:01] LABS: B Type Natriuretic Peptide 17 pg/mL (<100)
== END 2022-01-04 11:45 | disposition home or self-care (01) ==
LOC: HO.LAB 11:44
PROVIDERS: PCP Nurse Practitioner Family; Visit Provider Nurse Practitioner Family
DX: E78.00 Pure hypercholesterolemia, unspecified (principal); I11.0 Hypertensive heart disease with heart failure; I50.9 Heart failure, unspecified; I42.9 Cardiomyopathy, unspecified; E87.6 Hypokalemia
CPT/HCPCS: 36415; 80053; 80061; 83880; 85027

== ENCOUNTER → 2022-04-20 12:15 | Outpatient (BNVA) | payer OTHER, SELFPAY | PROVIDERS: PCP Nurse Practitioner Family; Referring Provider Nurse Practitioner Family; Visit Provider Nurse Practitioner Family | DX: I11.0 Hypertensive heart disease with heart failure (principal); I50.9 Heart failure, unspecified; I42.9 Cardiomyopathy, unspecified; G47.30 Sleep apnea, unspecified; E66.01 Morbid (severe) obesity due to excess calories; Z68.43 Body mass index [BMI] 50.0-59.9, adult | CPT/HCPCS: 93005; 99212 ==

== ENCOUNTER → 2022-05-24 08:16 | Outpatient (REF) | payer OTHER, SELFPAY ==
--- NOTE | ~2022-05-24 | NM_ITS ---
Exercise Myocardial perfusion study Indication: Cardiomyopathy to evaluate for myocardial ischemia Technique: The patient was brought in for an exercise perfusion study on 05/24/2022. Patient performed exercise as per Shayne protocol and was injected 30 mCi of sestamibi was given intravenously one target HR was achieved. Images were obtained using the SPECT gamma camera interlaced with the gating device. Images were obtained in supine position. Resting perfusion study was performed on 05/25/2022. Patient was administered 30 mCi of sestamibi intravenously at rest. Images were then obtained in supine position. Images obtained with and without CT attenuation. Total DLP 193 mGy-cm. Images were processed with the software and compared side to side in short axis, horizontal long axis and vertical long axis views. Findings: The stress perfusion study showed both attenuated as well as non attenuated images show mildly reduced uptake in the apex and distal septum of the LV myocardium. Remainder of the LV myocardium is normally perfused. The gated study shows normal LV systolic function with calculated LVEF of 59%. LV cavity is normal in size. The gated study shows normal systolic wall thickening and contraction of all segments. There is no transient ischemic dilation. Resting study shows no change in perfusion pattern compared to stress perfusion study. Gating at rest reveals normal systolic wall motion with ejection fraction at 57%. The findings are consistent with normal myocardial perfusion. NM/NM glenna perf SPECT rest & str Impression: 1. Normal myocardial perfusion 2. Gated LVEF is 59% 3. Transient ischemic dilatation not present Stress EKG is equivocal for ischemia
--- NOTE | 2022-05-24 08:23 | CA_ITS ---
Transthoracic Echocardiogram Patient (Last, First, Middle): Sudarshan Hensley, Gender: Male Date of : 1975 Age: 46 Procedure Date: 05/24/2022 Procedure Type: Transthoracic Echocardiogram Location: OP Height: 170.18 cm Weight: 140.62 kg BSA: 2.44 m2 Heart Rate: bpm BP: 130 / 80 mmHg Digital Traffic Coordinator: DEL Referring MD: Aliyah Fernandez TOOLROOM ATTENDANT-Yamileth Captain [employer]: Guicho Negro MD Symptoms: I42.9 - Cardiomyopathy, unspecified Study Quality: Technically Difficult due to obesity ECG Rhythm: Sinus Conclusions: - 1. Technically limited study despite use of contrast agent 2. LV systolic function is measured to be normal on this study with LVEF of 55-60% with mildly dilated LV cavity with mild LVH with normal filling pattern 3. Limited visualization of cardiac valves with normal cardiac valvular Doppler Findings Procedure Information Contrast agent, definity, is being given per protocol without apparent complications. Left Ventricle Mildly increased left ventricular cavity size. There is mildly increased left ventricular wall thickness. The left ventricular systolic function is normal. The visually estimated ejection fraction is between 55-60%. Spectral Doppler is indicative of a normal filling pattern. Right Ventricle The right ventricle was not well visualized. Atria The left atrium was not well visualized. Interatrial shunt cannot be excluded. The right atrium was not well visualized. Aortic Valve The aortic valve was not well visualized. There is no aortic valve stenosis. There is no aortic valve regurgitation. Mitral Valve The mitral valve was not well visualized. There is trace mitral valve regurgitation. There is no mitral valve stenosis. Pulmonic Valve The pulmonic valve was not well visualized. Tricuspid Valve The tricuspid valve was not well visualized. Tricuspid regurgitation envelope is inadequate for calculation of right ventricular systolic pressure. Great Vessels All visible segments of the aorta are normal in size. The pulmonary artery was not well visualized. Venous The inferior vena cava was not well visualized. Pericardium/Pleural The pericardium was not well visualized. Prior Study Comparison Changes noted compared to prior study dated: 06/24/2021. LV systolic function is normal on this study Measurements 2D Linear Measurements IVSd: 1.45 0.6-0.9/0.6-1.0 cm LVIDd: 5.78 3.9-5.3/4.2-5.9 cm LVIDd Index: 2.37 2.4-3.2/2.2-3.1 cm/m2 LVIDs: 4.28 2.0-3.6 cm LVPWd: 1.40 0.7-1.1 cm Ao Root: 3.20 2.1-3.5 cm LA Diam: 5.10 2.7-3.8/3.0-4.0 cm LAIDs Index: 2.09 1.5-2.3 cm/m2 LV Mass: 467.62 67-162/88-224 g LV Mass Index: 191.65 43-95/49-115 g/m2 LVOT Diam: 2.60 3.0+(-)1.3 cm 2D Systolic Function EF 4C: 57.70 >55% EF 2C: 53.90 >55% EF BiP: 57.10 >55% Mitral Valve MV Pk E: 0.69 MV PK A: 0.63 MV Decel Time: 305.00 E/A: 1.10 E'Lateral: 5.98 E'Medial: 5.55 E/E' Med: 12.40 E/E' Lat: 11.50 PHT: 89.00 MVA PHT: 2.47 Decel Baldwin: 2.26 Aortic Valve AoV Pk Bradley: 1.23 AoV Mn Bradley: 0.81 AoV VTI: 0.35 AoV Pk Grad: 6.00 Aov Mn Grad: 3.00 BONNIE Cont.VTI: 2.87 LVOT LVOT Pk Bradley: 0.80 LVOT Mn Bradley: 0.55 LVOT VTI: 0.19 LVOT Pk Grad: 3.00 LVOT Mn Grad: 1.00 LVOT Diam: 2.60 LVOT Area: 5.31 Diastolic Function MV Pk E: 0.69 MV Pk A: 0.63 E/A: 1.10 E'Medial: 5.55 E/E' Med: 12.40 E' Laterial: 5.98 E/E' Lat: 11.50 Right Ventricle TAPSE (mm): 21.00 TVS' Bradley: 15.00 Tricuspid Valve TR Pk Bradley: 1.79 TR Pk Grad: 13.00 RA Press: 15.00 Great Vessels Aorta Ao Root-2D: 3.20 2.0-3.7 cm Ao Asc: 2.90 2.1-3.4 cm Pulmonary Valve PV Pk Bradley: 1.13 Peak PV Grad: 5.00 Updated in Other Vendor System with Status of Final Guicho Negro MD electronically signed on 05/24/2022 1:29:06 PM with status of Final
--- NOTE | 2022-05-24 08:23 | CA_ITS ---
Acquisition Time: 2022-05-24 10:17:35 Total Exercise Time: 00:04:32 Test Indications: Palpitations CARDIOMYOPATHY Medications: ATORVASTATIN BUMETIDINE CARVEDILOL CYCLOBENZAPRINE HYDROXYZINE ISOSORBIDE LOSARTAN KCL SPIRONALACTONE Protocol: ANASTACIA Max HR: 150 BPM 86% of Pred: 173 BPM Max BP: 168/078 mmHG Max Work Load: 5.3 METS Exercise stress test with exercise 4 min 32 sec of Anastacia protocol, achieving 85% MPHR, with request to stop due to low back pain, without anginal symptoms, without arrythmia, with normtensive response to exercise, with borderline EKG changes noted in leads II, aVF and aVR. Back discomfort improved in recovery. Nuclear images pending. Test reviewed with Dr Cornelius Referred By: Aliyah Fernandez Overread By: ALIYAH FERNANDEZ
== END ==
LOC: HO.CARD 08:16
PROVIDERS: Visit Provider Nurse Practitioner Family
DX: I42.9 Cardiomyopathy, unspecified (principal); I10 Essential (primary) hypertension
CPT/HCPCS: 78452; 93017; 93306; A9500; Q9957

== ENCOUNTER 2022-06-09 09:17 | Outpatient (REF) | payer OTHER, SELFPAY ==
[2022-06-09 09:39] LABS: Hematocrit 40.5 % (42.0-52.0); Hemoglobin 13.1 g/dl (14.0-18.0); Mean Corpuscular HGB Conc 32.3 g/dl (31.0-36.0); Mean Corpuscular Hemoglobin 29.2 pg (27.0-33.0); Mean Corpuscular Volume 90.2 fL (80.0-98.0); Platelet Count 235 X10*3/uL (160-400); Red Blood Count 4.49 X10*6/uL (4.60-5.80); Red Cell Distribution Width 12.8 % (11.0-16.0); White Blood Count 9.4 X10*3/uL (4.8-10.8)
[2022-06-09 10:37] LABS: Alanine Aminotransferase 28 U/L (0-40); Alkaline Phosphatase 104 U/L (39-117); Anion Gap 13 (12-20); Aspartate Amino Transferase 17 U/L (5-37); Bilirubin Total 0.4 mg/dL (0.0-1.0); Blood Urea Nitrogen 17 mg/dL (9-16); Calcium 9.1 mg/dL (8.4-10.2); Carbon Dioxide 28 mmol/L (22-29); Chloride 104 mmol/L (96-108); Cholesterol 183 mg/dL; Estimated Glomerular Filt Rate > 60; Glucose Fasting 103 mg/dL (60-99); HDL Cholesterol 48 mg/dL; LDL Cholesterol Calculated 116 mg/dl; Potassium 4.2 mmol/L (3.3-5.1); Sodium 141 mmol/L (135-145); TSH reflex Free T4 1.19 uIU/mL (0.32-4.0); Total Protein 6.5 g/dL (6.5-8.0); Triglycerides 99 mg/dL; Vitamin D 25-OH Total 18.3 ng/mL (>30)
[2022-06-09 10:49] LABS: Folate 9.4 ng/mL (> or = 4.0); Vitamin B12 559 pg/mL (200-900)
== END 2022-06-09 09:18 | disposition home or self-care (01) ==
LOC: HO.LAB 09:17
PROVIDERS: PCP Nurse Practitioner Family; Visit Provider Nurse Practitioner Family
DX: I10 Essential (primary) hypertension (principal)
CPT/HCPCS: 36415; 80053; 80061; 82306; 82607; 82746; 84443; 85027

== ENCOUNTER → 2022-12-07 13:15 | Outpatient (BNVA) | payer OTHER, SELFPAY | PROVIDERS: PCP Nurse Practitioner Family; Referring Provider Nurse Practitioner Family; Visit Provider Nurse Practitioner Family | DX: I11.0 Hypertensive heart disease with heart failure (principal); I50.21 Acute systolic (congestive) heart failure; I42.9 Cardiomyopathy, unspecified; G47.30 Sleep apnea, unspecified; E66.01 Morbid (severe) obesity due to excess calories; Z68.43 Body mass index [BMI] 50.0-59.9, adult | CPT/HCPCS: 93005; 99212 ==

== ENCOUNTER → 2023-01-05 | Outpatient (REF) | payer OTHER, SELFPAY | LOC: HO.SL | PROVIDERS: PCP Nurse Practitioner Family; Visit Provider Nurse Practitioner Family | DX: G47.33 Obstructive sleep apnea (adult) (pediatric) (principal) | CPT/HCPCS: 95806 ==

== ENCOUNTER 2023-04-04 08:31 | Outpatient (REF) | payer OTHER, SELFPAY ==
[2023-04-04 09:55] LABS: Alanine Aminotransferase 16 U/L (0-40); Albumin Level 3.7 g/dL (3.5-5.0); Alkaline Phosphatase 91 U/L (39-117); Anion Gap 11 (12-20); Aspartate Amino Transferase 12 U/L (5-37); Bilirubin Total 0.4 mg/dL (0.0-1.0); Blood Urea Nitrogen 8 mg/dL (9-16); Carbon Dioxide 27 mmol/L (22-29); Chloride 107 mmol/L (96-108); Cholesterol 161 mg/dL (<200); Estimated Glomerular Filt Rate > 60; Glucose Fasting 102 mg/dL (60-99); HDL Cholesterol 47 mg/dL (>40); LDL Cholesterol Calculated 96 mg/dL (<100); Potassium 3.8 mmol/L (3.3-5.1); Sodium 141 mmol/L (135-145); Total Protein 6.5 g/dL (6.5-8.0); Triglycerides 93 mg/dL (<150)
[2023-04-04 10:10] LABS: Vitamin D 25-OH Total 34.4 ng/mL (>30)
== END 2023-04-04 08:32 | disposition home or self-care (01) ==
LOC: HO.LAB 08:31
PROVIDERS: PCP Nurse Practitioner Family; Visit Provider Nurse Practitioner Family
DX: R73.01 Impaired fasting glucose (principal); E78.5 Hyperlipidemia, unspecified; E55.9 Vitamin D deficiency, unspecified
CPT/HCPCS: 36415; 80053; 80061; 82306

== ENCOUNTER 2023-04-07 09:27 | Outpatient (AMB) | payer OTHER, SELFPAY ==
[2023-04-07 09:28] VITALS: BP 142/78; PULSE 70; O2SAT 95; BMI 48.0
--- NOTE | 2023-04-07 09:28 | A.OFFPC_ITS ---
Vital Signs 04/07/23 09:28 Height 5 ft 8 in Weight 316 lb BMI 48.0 BP 142/78 H Blood Pressure Location Lt brachial Position Sitting Pulse 70 Pulse Source Pulse Oximeter Temp Source Skin Pulse Oximetry (%) 95 Oxygen Delivery Method Room Air Intake Visit Reasons: PHY Intake Note: Patient is here today for a physical. Resist Coater Developer Required: No Allergies No Known Allergies [No Known Allergies*] Allergy (Verified 04/07/23 09:38) Medication List - Last Reconciled 04/07/23 by FARIBA Mixon acetaminophen (Tylenol Extra Strength) 500 mg PO Q6H PRN atorvastatin 20 mg PO DAILY blood pressure kit-extra large As directed bumetanide 1 mg PO DAILY 90 days carvedilol 6.25 mg PO BID 90 days cholecalciferol (vitamin D3) 50 mcg PO DAILY cyclobenzaprine 5 mg PO Q8H PRN 5 days hydrocortisone 2.5% 1 appl topical BID PRN hydroxyzine HCl 25 mg PO BID PRN losartan 100 mg PO DAILY potassium chloride ER 20 mEq PO BID spironolactone 25 mg PO DAILY Tobacco use date assessed: 04/07/23 Dental Screening Dental Screen Date: 04/07/23 Did you have a dental visit in the last 12 months?: No Did you have a dental problem in the last 6 months where you did not have access to dental care?: No HPI PHY HPI Details Patient is a 47-year-old male who presents today for physical exam.? Medical history significant for depression, anxiety, hyperlipidemia, mild sleep apnea - recommendation for conservative measures 01/11/2023, morbid obesity, congestive heart failure, hypertension, and cardiomyopathy.? Patient is compliant with medications and denies side effects. Cardiac conditions are followed by [facility].? Patient reports that he is on waiting list for counseling for mental health. Today we discussed patient's need for tetanus vaccine. Patient does not see eye doctor, denies eye problems, he will call for dental exam. In addition, patient reports that he did have colonoscopy about 1 year ago at [facility] which was normal, no available records, will request records, patient reports that at that time he was confused with his father who has the same name.? Patient denies shortness of breath or chest pain. [facility] Medical History Encounter to establish care (~07/2021) Obesity Diverticulitis No known health problems Surgical History No pertinent past surgical history Family History Father Coronary artery disease CKD (chronic kidney disease) Mother HTN (hypertension) Anxiety Sister Heart disease Other Colon cancer Social History Household Members: Significant Other Housing: Apartment Do you presently have visiting nurse or other home services: No Alcohol intake: former Patient Tobacco Use Status: Former Tobacco user Quit Date: 2007 Years Smoked: 20 +/- e-Cigarette/Vaping Use: Never Used Second Hand Smoke Exposure: No service: No Current occupational status: unemployed Cognitive needs: No Hearing needs: No Vision needs: No Questionnaire PHQ-9 Over the last 2 weeks, how often have you been bothered by any of the following problems? 1. Little interest or pleasure in doing things: several days 2. Feeling down, depressed, or hopeless: several days 3. Trouble falling or staying asleep, or sleeping too much: nearly every day 4. Feeling tired or having little energy: nearly every day 5. Poor appetite or overeating: more than half the days 6. Feeling bad about yourself - or that you are a failure or have let yourself or your family down: several days 7. Trouble concentrating on things, such as reading the newspaper or watching television: not at all 8. Moving or speaking so slowly that other people could have noticed. Or the opposite - being so fidgety or restless that you have been moving around a lot more than usual: not at all 9. Thoughts that you would be better off or of hurting yourself in some way: not at all Total score: 11 Depression Screening Interpretation: Negative 65079 - PHQ-9 Billing: Yes Source: Developed by Drs. Ashu Cannon, Kim Wilson, Favian Gaspar and colleagues, with an educational supriya from [employer]. Thrive Questionnaire Date Thrive assessed: 04/16/22 AUDIT C Alcohol Use Questionnaire (AUDIT-C) 1. How often do you have a drink containing alcohol?: Never 3. How often do you have six or more drinks on one occasion?: Never Total Score: 0 Score Reviewed/Action Taken: No RAFIQ-7 AMB Questionnaire RAFIQ-7 Date RAFIQ - 7 assessed: 04/07/23 Feeling nervous, anxious, or on edge: 1 = Several days Not being able to stop or control worryin = Several days Worrying too much about different things: 1 = Several days Trouble relaxin = Several days Being so restless that it is hard to sit still: 0 = Not at all Becoming easily annoyed or irritable: 0 = Not at all Feeling afraid as if something awful might happen: 0 = Not at all Total RAFIQ-7 score (0-4 normal; 5-9 mild; 10-14 moderate; 15-21 severe): 4 Source: Developed by Drs. Ashu Cannon, Kim Wilson, Favian Gaspar and colleagues, with an educational supriya from [employer]. RAFIQ-7 Assessment Billing RAFIQ-7 Assessment Tool: RAFIQ-7 Assessment 35544 Review of Systems Const Denies body aches, Denies chills, Denies fever(s) and Denies headache(s) Eyes Denies change in vision ENT Denies dizziness, Denies otalgia, Denies headache(s), Denies nasal discharge, Denies sinus pain and Denies sore throat Card Denies chest pain, Denies edema, Denies lightheadedness and Denies dyspnea Resp Denies chest congestion, Denies cough and Denies dyspnea GI Denies constipation, Denies diarrhea, Denies nausea and Denies vomiting Denies difficulty urinating and Denies dysuria Musc Denies back pain Skin/Breast Denies lesions and Denies rash Neuro Denies dizziness and Denies headache(s) Physical exam (Primary Care) Vital Signs: Last Vital Signs Pulse 70 04/07/23 09:28 BP 142/78 H 04/07/23 09:28 Pulse Ox 95 04/07/23 09:28 Oxygen Delivery Method Room Air 04/07/23 09:28 BMI result Body Mass Index 48.0 Tobacco/Smoking Status: Tobacco use Status Tobacco use date assessed 04/07/23 04/07/23 09:30 Patient Tobacco Use Status Former Tobacco user 04/07/23 09:30 e-Cigarette/Vaping Use Never Used 04/07/23 09:30 PHQ-9: PHQ-9 Score PHQ-9: Total score 0 04/07/23 09:30 Depression Screening Interpretation: Negative Thrive Assessment: Date of Thrive Assessment Date Thrive assessed 04/16/22 04/07/23 09:30 Const General: cooperative and no acute distress Orientation/consciousness: patient oriented x3 HENMT Head: Yes normocephalic and Yes atraumatic Ears: TM's normal bilaterally Face and sinus: Yes sinuses nontender Mouth: oropharynx normal and moist mucous membranes Throat: Yes posterior oropharynx normal Eyes General: appearance normal, both eyes and all related structures Pupils: Equal, round and reactive pupils present EOM: EOMs intact bilaterally Neck Neck: Yes normal visual inspection, Yes full ROM and Yes no lymphadenopathy Thyroid: Thyroid normal Resp Effort & Inspection: normal respiratory effort and able to speak in complete sentences Auscultation: clear to auscultation bilaterally, no crackles, no rales, no rhonchi and no wheezes Cardio Rate: regular rate Rhythm: regular rhythm Heart sounds: S1 normal heart sound present, S2 normal heart sound present and no murmurs GI Palpation (GI): Soft to palpation, not firm, nontender, no guarding, not rigid and no hepatosplenomegaly Auscultation: normal bowel sounds General: No CVA tenderness Back/Spine/Pelvis Back: No CVA tenderness Skin General skin exam: no rashes or lesions noted Neuro General: patient oriented x3 Cranial nerves: Yes Equal, round and reactive pupils present Gait exam (Neuro): Normal gait present Extrem Other: Trace edema to bilateral lower extremity General: Yes full ROM Immunizations Boostrix Tdap 2.5 Lf unit-8 mcg-5 Lf/0.5 mL intramuscular syringe Performing Provider: FARIBA Mixon [facility] Administered by: SHANAE Piña on 04/07/23 09:51 Dose Route Admin Location Dispensed Lot Number Expiration Date [employer] Super[employer] 0.5 mL IM Left Deltoid 0.5 mL [id number] 04/12/25 29913-588-07 [employer] VIS Given Date VIS Provided VIS Publication Date 04/07/23 Single Vaccine 21 Eligibility Eligibility Date Funding Source Not [facility] Eligible 04/07/23 Private Assessment and Plan Assessment & Plan (1) Depression: Code(s): F32.A - Depression, unspecified Qualifiers: Depression Type: other depression Qualified Code(s): F32.89 - Other specified depressive episodes Plan: Patient is on waiting list for counseling (2) Severe anxiety: Code(s): F41.9 - Anxiety disorder, unspecified Plan: Patient is on waiting list for counseling Continue hydroxyzine 25 mg b.i.d. p.r.n. (3) Hyperlipidemia: Code(s): E78.5 - Hyperlipidemia, unspecified Plan: LDL 96 03/2023 Atorvastatin 20 mg daily Low-cholesterol diet and weight loss (4) Sleep apnea: Comment: mild sleep apnea - recommendation for conservative measures 01/11/2023 Code(s): G47.30 - Sleep apnea, unspecified (5) Morbid obesity: Code(s): E66.01 - Morbid (severe) obesity due to excess calories Plan: Healthy food choices and exercise as tolerated Patient would like to hold off on weight management referral at this time Patient congratulated on 18 lb loss (6) Hypokalemia: Code(s): E87.6 - Hypokalemia Plan: Continue potassium chloride 20 mEq b.i.d. Continue to monitor (7) CHF (congestive heart failure): Code(s): I50.9 - Heart failure, unspecified Plan: Bumetanide 1 mg b.i.d. Carvedilol 6.25 mg b.i.d. Spironolactone 25 mg daily Continue to follow-up with cardiology (8) HTN (hypertension): Code(s): I10 - Essential (primary) hypertension Plan: Losartan 100 mg daily Continue carvedilol 6.25 mg b.i.d. Low-sodium diet, weight loss, and exercise as tolerated (9) Elevated fasting glucose: Code(s): R73.01 - Impaired fasting glucose Plan: A1c ordered (10) Adult general medical exam: Code(s): Z00.00 - Encounter for general adult medical examination without abnormal findings Plan Follow-up in 4 months or sooner as needed Orders: Orders Lipid Panel Today E78.5 - Hyperlipidemia, unspecified Hemoglobin A1c Today R73.01 - Impaired fasting glucose TDaP Immunization Today Z23 - Encounter for immunization Comprehensive [place]. Panel Fast Today R73.01 - Impaired fasting glucose Coding Level of Care Code Est Pt Prev Care 40-64y(78502) Diagnoses Other depression F32.89 Depression Type: other depression Severe anxiety F41.9 Hyperlipidemia E78.5 Sleep apnea G47.30 Morbid obesity E66.01 Hypokalemia E87.6 CHF (congestive heart failure) I50.9 HTN (hypertension) I10 Elevated fasting glucose R73.01 Adult general medical exam Z00.00 Additional Codes RAFIQ-7 Assessment Billing - RAFIQ-7 Assessment Tool: RAFIQ-7 Assessment 13969 ([id number])
== END 2023-04-07 09:59 | disposition home or self-care (01) ==
PROVIDERS: PCP Nurse Practitioner Family; Visit Provider Nurse Practitioner Family
DX: Z00.00 Encounter for general adult medical examination without abnormal findings (principal); F41.9 Anxiety disorder, unspecified; E66.01 Morbid (severe) obesity due to excess calories; Z68.42 Body mass index [BMI] 45.0-49.9, adult; Z23 Encounter for immunization; F32.89 Other specified depressive episodes; E78.5 Hyperlipidemia, unspecified; G47.30 Sleep apnea, unspecified; E87.6 Hypokalemia; I50.9 Heart failure, unspecified; I10 Essential (primary) hypertension; R73.01 Impaired fasting glucose
CPT/HCPCS: 90471; 90715; 99396

== ENCOUNTER 2023-08-09 08:45 | Outpatient (AMB) | payer OTHER, SELFPAY ==
--- NOTE | 2023-08-09 08:59 | MHC.PC.OV ---
Vital Signs 08/09/23 09:00 Height 5 ft 8 in Weight 316 lb 6 oz BMI 48.1 BP 136/80 Blood Pressure Location Lt brachial Position Sitting Pulse 88 Pulse Source Pulse Oximeter Pulse Oximetry (%) 97 Oxygen Delivery Method Room Air Intake Visit Reasons: F/U HLD, HTN, CHF Intake Note: Patent is here today for transfer of care from . Patient is here to follow up on HLD, HTN, CHF. Activities Assistant Required: No Apprentice Instrument Technician: Present Accompanied by: Spouse Allergies No Known Allergies [No Known Allergies*] Allergy (Verified 08/13/23 20:24) Medication List - Last Reconciled 08/13/23 by Hussain Smith MD acetaminophen (Tylenol Extra Strength) 500 mg PO Q6H PRN atorvastatin 20 mg PO DAILY blood pressure kit-extra large As directed bumetanide 1 mg PO DAILY carvedilol 6.25 mg PO BID 90 days cholecalciferol (vitamin D3) 50 mcg PO DAILY cyclobenzaprine 5 mg PO Q8H PRN 5 days hydrocortisone 2.5% 1 appl topical BID PRN hydroxyzine HCl 25 mg PO BID PRN losartan 100 mg PO DAILY potassium chloride ER 20 mEq PO BID spironolactone 25 mg PO DAILY Tobacco use date assessed: 08/09/23 Dental Screening Dental Screen Date: 08/09/23 Did you have a dental visit in the last 12 months?: No Did you have a dental problem in the last 6 months where you did not have access to dental care?: No Was dental information given to patient?: No HPI F/U HLD, HTN, CHF HPI Details 47-year-old male presents to the office to discuss his medical problems. I am assuming his care has his primary care has left the practice. Patient is compliant with medications and at baseline state of health. Is reporting no side effects. Able to function and do all activities of daily living. [facility] Medical History (Updated 08/13/23 @ 20:28 by Hussain Smith MD) Morbid obesity CHF (congestive heart failure) Cardiomyopathy Obesity Diverticulitis Surgical History No pertinent past surgical history Family History Father Coronary artery disease CKD (chronic kidney disease) Mother HTN (hypertension) Anxiety Sister Heart disease Other Colon cancer Social History Household Members: Significant Other Housing: Apartment Do you presently have visiting nurse or other home services: No Alcohol intake: former Patient Tobacco Use Status: Former Tobacco user Quit Date: 2007 Years Smoked: 20 +/- e-Cigarette/Vaping Use: Never Used Second Hand Smoke Exposure: No service: No Current occupational status: unemployed Cognitive needs: No Hearing needs: No Vision needs: No Questionnaire PHQ-9 Over the last 2 weeks, how often have you been bothered by any of the following problems? 1. Little interest or pleasure in doing things: several days 2. Feeling down, depressed, or hopeless: nearly every day 3. Trouble falling or staying asleep, or sleeping too much: nearly every day 4. Feeling tired or having little energy: not at all 5. Poor appetite or overeating: nearly every day 6. Feeling bad about yourself - or that you are a failure or have let yourself or your family down: not at all 7. Trouble concentrating on things, such as reading the newspaper or watching television: nearly every day 8. Moving or speaking so slowly that other people could have noticed. Or the opposite - being so fidgety or restless that you have been moving around a lot more than usual: not at all 9. Thoughts that you would be better off or of hurting yourself in some way: not at all Total score: 13 Depression Screening Interpretation: Positive Depression Screening Follow-up: Existing condition, In treatment and Community Mental Health Worker F/U Depression Screening Done: Yes Source: Developed by Drs. Ashu Cannon, Kim Wilson, Favian Gaspar and colleagues, with an educational supriya from [employer]. Thrive Questionnaire Date Thrive assessed: 08/09/23 I am a: Patient What is your living situation today?: I have a steady place to live Within the past 12 months, did the food you bought not last and you didn't have the money to get more?: Never true Within the past 12 months, did you worry whether your food would run out before you got money to buy more?: Never true Do you have trouble paying for medicines?: No Do you have trouble getting transportation to medical appointments?: No Do you have trouble paying your heating and electricity bill?: No Do you have trouble taking care of your child, family member or friend?: No Do you have trouble with day-to-day activities such as bathing, preparing meals, shopping, managing finances, etc.?: No Are you currently unemployed and looking for a job?: No Are you interested in more education?: No Currently or been in a relationship where the following occur: no concerns reported THRIVE Score: 0 AUDIT C Alcohol Use Questionnaire (AUDIT-C) 1. How often do you have a drink containing alcohol?: Never Total Score: 0 RAFIQ-7 AMB Questionnaire RAFIQ-7 Date RAFIQ - 7 assessed: 08/09/23 Feeling nervous, anxious, or on edge: 3 = Nearly every day Not being able to stop or control worryin = Nearly every day Worrying too much about different things: 3 = Nearly every day Trouble relaxin = Nearly every day Being so restless that it is hard to sit still: 1 = Several days Becoming easily annoyed or irritable: 0 = Not at all Feeling afraid as if something awful might happen: 3 = Nearly every day Total RAFIQ-7 score (0-4 normal; 5-9 mild; 10-14 moderate; 15-21 severe): 16 Source: Developed by Drs. Ashu Cannon, Kim Wilson, Favian Gaspar and colleagues, with an educational supriya from [employer]. Physical exam (Primary Care) Vital Signs: Last Vital Signs Pulse 88 08/09/23 09:00 BP 136/80 08/09/23 09:00 Pulse Ox 97 08/09/23 09:00 Oxygen Delivery Method Room Air 08/09/23 09:00 BMI result Body Mass Index 48.1 BMI Assessment/Plan discussion: High (1 lb per week weight loss suggested.) BMI High, discussed plan: lifestyle, weight reduction and dietary Tobacco/Smoking Status: Tobacco use Status Tobacco use date assessed 08/09/23 08/09/23 09:08 Patient Tobacco Use Status Former Tobacco user 08/09/23 09:08 e-Cigarette/Vaping Use Never Used 08/09/23 09:08 PHQ-9: PHQ-9 Score PHQ-9: Total score 13 08/09/23 09:08 Depression Screening Interpretation: Positive Depression Screening Follow-up: Existing condition, In treatment and Community Mental Health Worker F/U Thrive Assessment: Date of Thrive Assessment Date Thrive assessed 08/09/23 08/09/23 09:08 Currently or been in a relationship where the following occur: no concerns reported Const General: cooperative and healthy appearing Nutritional Appearance: well nourished Orientation/consciousness: patient oriented x3 Limitations: no limitations HENMT Head: Yes normal to inspection Eyes General: appearance normal, both eyes and all related structures Neck Neck: Yes normal visual inspection Chest Chest palpation & inspection: normal palpation of entire chest wall Resp Effort & Inspection: normal respiratory effort Neuro General: patient oriented x3 Assessment and Plan Assessment & Plan (1) Morbid obesity: Code(s): E66.01 - Morbid (severe) obesity due to excess calories Plan: Counseling on the importance of weight loss suggested. Dietary guidance provided. (2) CHF (congestive heart failure): Code(s): I50.9 - Heart failure, unspecified Plan: Condition is stable. Continue current medications. (3) Cardiomyopathy: Code(s): I42.9 - Cardiomyopathy, unspecified Qualifiers: Cardiomyopathy type: unspecified Qualified Code(s): I42.9 - Cardiomyopathy, unspecified Coding Level of Care Code Est Pt Level 4 (65341) Diagnoses Morbid obesity E66.01 CHF (congestive heart failure) I50.9 Cardiomyopathy I42.9 Cardiomyopathy type: unspecified
[2023-08-09 09:00] VITALS: BP 136/80; PULSE 88; O2SAT 97; BMI 48.1
== END 2023-08-09 11:33 | disposition home or self-care (01) ==
PROVIDERS: PCP Internal Medicine; Visit Provider Internal Medicine
DX: I50.9 Heart failure, unspecified (principal); I42.9 Cardiomyopathy, unspecified; E66.01 Morbid (severe) obesity due to excess calories; Z68.42 Body mass index [BMI] 45.0-49.9, adult
CPT/HCPCS: 99214

== ENCOUNTER 2023-11-18 10:00 | Outpatient (AMB) | payer OTHER, SELFPAY ==
--- NOTE | 2023-11-18 10:09 | A.OFFVIS_ITS ---
Vital Signs 11/18/23 10:10 Height 5 ft 8 in Weight 317 lb BMI 48.2 BP 132/78 Blood Pressure Location Lt brachial Position Sitting Pulse 71 Pulse Source Monitor Pulse Oximetry (%) 97 Oxygen Delivery Method Room Air Intake Visit Reasons: Clearance/11-29/[place] tooth remove/deep clean Intake Note: PT is here for clearance with EKG PT is doing good Allergies No Known Allergies [No Known Allergies*] Allergy (Verified 08/13/23 20:24) Medication List - Last Reconciled 11/18/23 by Aliyah Fernandez NP-C acetaminophen (Tylenol Extra Strength) 500 mg PO Q6H PRN atorvastatin 20 mg PO DAILY blood pressure kit-extra large As directed bumetanide 1 mg PO DAILY carvedilol 6.25 mg PO BID 90 days cholecalciferol (vitamin D3) 50 mcg PO DAILY cyclobenzaprine 5 mg PO Q8H PRN 5 days hydrocortisone 2.5% 1 appl topical BID PRN hydroxyzine HCl 25 mg PO BID PRN losartan 100 mg PO DAILY potassium chloride ER 20 mEq PO BID spironolactone 25 mg PO DAILY HPI HPI Clearance/11-29/[place] tooth remove/deep clean: Details: Sudarshan is a 48-year-old male with past medical history of hypertension, morbid obesity, chronic systolic heart failure, nonischemic cardiomyopathy who presents for follow-up. His last prior visit to our office was 12/07/2022. Today he reports he has been doing well over the last year. He has not had any heart failure admissions. He does have shortness of breath when climbing stairs or carrying objects. He feels his breathing is overall unchanged. No concerning chest discomfort at rest or with activity. No heart palpitations, dizziness, presyncope, syncope, PND, orthopnea or edema. He does report generalized fatigue. He has been walking more since his car broke down. He walked for 45 minutes to get to this appointment today. He is taking all medications as directed with the assistance of his significant other. He has an upcoming dental visit for deep cleaning and wisdom tooth extraction. He has a form for me to sign. [facility] Medical History Morbid obesity CHF (congestive heart failure) Cardiomyopathy Obesity Diverticulitis Surgical History No pertinent past surgical history Family History Father Coronary artery disease CKD (chronic kidney disease) Mother HTN (hypertension) Anxiety Sister Heart disease Other Colon cancer Social History Household Members: Significant Other Housing: Apartment Do you presently have visiting nurse or other home services: No Alcohol intake: former Patient Tobacco Use Status: Former Tobacco user Quit Date: 2007 Years Smoked: 20 +/- e-Cigarette/Vaping Use: Never Used Second Hand Smoke Exposure: No service: No Current occupational status: unemployed Cognitive needs: No Hearing needs: No Vision needs: No Review of Systems Const All systems reviewed & are unremarkable except as noted in HPI and below Denies weakness ENT Denies dizziness Card Denies chest pain, Denies chest pain with activity, Denies syncope, Denies rapid heart rate, Denies pedal edema, Denies edema, Denies leg edema, Denies lightheadedness, Denies palpitations, Denies dyspnea, Reports dyspnea on exertion and Denies orthopnea Resp Denies cough, Denies dyspnea and Reports dyspnea on exertion GI Denies hematochezia and Denies change in stool character Musc Denies abnormal gait, Denies muscle cramps, Denies muscle weakness, Denies numbness, Denies radiating pain into limb and Denies tingling Neuro Denies abnormal gait, Denies dizziness, Denies syncope, Denies numbness, Denies tingling and Denies weakness Endo Denies palpitations Physical Exam Vital Signs: BMI result Body Mass Index 48.2 Const Other: mobidly obese General: cooperative, healthy appearing, comfortable and no acute distress Orientation/consciousness: patient oriented x3 Neck Neck: Yes normal visual inspection and Yes no JVD Resp Effort & Inspection: normal respiratory effort Auscultation: clear to auscultation bilaterally, no rales, no rhonchi and no wheezes Cardio Jugular venous distension: no JVD Rate: regular rate Rhythm: regular rhythm Heart sounds: S1 normal heart sound present, S2 normal heart sound present, no murmurs and no rubs Neuro General: patient oriented x3 Extrem General: Yes normal to inspection and No no pedal edema Psych Appearance: grossly normal Mental Status: mental status grossly normal Speech and movement: Normal speech and movement present Office Procedures EKG Details: Today, read by me, sinus rhythm, no acute ST or T-wave abnormality, voltage criteria for LVH, rate 69, QTC 426 milliseconds [id number], Complete Assessment & Plan Assessment & Plan (1) CHF (congestive heart failure): Code(s): I50.9 - Heart failure, unspecified Category: Medical Plan: [facility] admission 06/2021 with shortness of breath and edema. He was treated for acute systolic heart failure and uncontrolled hypertension. Echocardiogram done 06/24/2021 showed EF 30-35%, mild increase in the LV thickness, mild increase in the RV size, [id number] decrease in the RV systolic function with moderate pulmonary hypertension. He was started on the appropriate medical management with the plan for cardiac follow-up. He did not present for office follow-up until 04/20/22. He had reported no recurrent heart failure symptoms. and med compliance. Recheck of echo done on 05/24/2022 showing EF 55-60%, mild LVH, valves normal, RV not well visualized. Nuclear stress test done on 05/25/2022 showed exercise limited by back pain, borderline EKG changes and normal myocardial perfusion imaging. Today he presents for follow-up after a 1 year gap. He states he has been doing well over the last year with no heart failure admissions. Does have some shortness of breath with exertion which is overall unchanged and can be related to his morbid obesity. He is recently increased his walking and tells me he is tolerating it well. EKG today showing sinus rhythm with no acute ST or T-wave abnormalities, rate 69. On exam he does not appear to have fluid overload. Blood pressure is normal range. Will have him stop losartan and change to Entresto b.i.d.. Informed to obtain blood work in 7-10 days, labs ordered. He has an upcoming PCP visit and his blood pressure will be rechecked at that time. Continue carvedilol, Aldactone. Continue Bumex once daily and atorvastatin. Reviewed diagnosis of Congestive heart failure and symptoms to watch for. Instructed on weight loss, increase physical activity. The importance of good blood pressure control reviewed with him. His heart failure syndrome likely related to uncontrolled hypertension. Cardiology follow-up 6 months, sooner if needed. (2) Cardiomyopathy: Code(s): I42.9 - Cardiomyopathy, unspecified Category: Medical Qualifiers: Cardiomyopathy type: unspecified Qualified Code(s): I42.9 - Cardiomyopathy, unspecified Plan: As above (3) HTN (hypertension): Code(s): I10 - Essential (primary) hypertension Category: Medical Plan: Blood pressure normal range at present. Stopping losartan and starting Entresto, continue carvedilol and Aldactone. (4) Sleep apnea: Comment: mild sleep apnea - recommendation for conservative measures 01/11/2023 Code(s): G47.30 - Sleep apnea, unspecified Category: Medical Plan: Sleep study done on 01/11/2023 shows only mild obstructive sleep apnea, moderate snoring, treat with conservative measures. Patient informed of these results and instructed on the need for weight loss and side sleeping preferred. (5) Morbid obesity: Code(s): E66.01 - Morbid (severe) obesity due to excess calories Category: Medical Plan: As above Plan Time spent on chart review, documentation, interview and assessment Medications: New sacubitril-valsartan 49-51 mg (Entresto) Replaces Losartan 1 tab PO BID 60 tabs 5RF Coding Level of Care Code Est Pt Level 4 (66502) Diagnoses CHF (congestive heart failure) I50.9 Cardiomyopathy I42.9 Cardiomyopathy type: unspecified HTN (hypertension) I10 Sleep apnea G47.30 Morbid obesity E66.01 CPT Codes EKG - CPT: [id number], Complete ([id number]) Time Spent (min) 30
[2023-11-18 10:10] VITALS: BP 132/78; PULSE 71; O2SAT 97; BMI 48.2
== END 2023-11-18 10:44 | disposition home or self-care (01) ==
PROVIDERS: PCP Internal Medicine; Visit Provider Nurse Practitioner Family
DX: I50.9 Heart failure, unspecified (principal); I42.9 Cardiomyopathy, unspecified; I10 Essential (primary) hypertension; G47.30 Sleep apnea, unspecified; E66.01 Morbid (severe) obesity due to excess calories
CPT/HCPCS: 93010; 99214

== ENCOUNTER → 2023-11-18 10:00 | Outpatient (BNVA) | payer OTHER, SELFPAY | PROVIDERS: PCP Internal Medicine; Visit Provider Nurse Practitioner Family | DX: I11.0 Hypertensive heart disease with heart failure (principal); I50.9 Heart failure, unspecified; I42.9 Cardiomyopathy, unspecified; G47.30 Sleep apnea, unspecified; E66.01 Morbid (severe) obesity due to excess calories | CPT/HCPCS: 93005; 99212 ==

== ENCOUNTER 2023-12-20 12:14 | Outpatient (REF) | payer OTHER, SELFPAY ==
[2023-12-20 12:53] LABS: Appearance Urine Clear; Color Urine Yellow; Glucose Urine UA Negative (Negative); Leukocyte Esterase Urine Small (1+) (Negative); Nitrite Urine Negative (Negative); Specific Gravity - Urine 1.025 (1.005-1.025); UMIC TRIGGER UA YES; Urine Blood Negative (Negative); Urine Ketones Negative (Negative); Urine Protein Trace mg/dL (Neg-Trace)
[2023-12-20 13:01] LABS: Bacteria Urine None Seen (None Seen); Hyaline Casts Urine 0-2 /LPF (0-2); RBC Urine 0-2 /HPF (0-2)
[2023-12-20 13:51] LABS: Alanine Aminotransferase 16 U/L (0-40); Albumin Level 3.8 g/dL (3.5-5.0); Alkaline Phosphatase 94 U/L (39-117); Anion Gap 11 (12-20); Aspartate Amino Transferase 13 U/L (5-37); Bilirubin Direct 0.2 mg/dL (0.0-0.5); Bilirubin Total 0.7 mg/dL (0.0-1.0); Blood Urea Nitrogen 11 mg/dL (9-16); Calcium 9.1 mg/dL (8.4-10.2); Carbon Dioxide 27 mmol/L (22-29); Chloride 109 mmol/L (96-108); Cholesterol 211 mg/dL (<200); Estimated Glomerular Filt Rate > 60; Glucose Random 91 mg/dL (60-115); HDL Cholesterol 42 mg/dL (>40); LDL Cholesterol Calculated 145 mg/dL (<100); Potassium 3.6 mmol/L (3.3-5.1); Sodium 143 mmol/L (135-145); Total Protein 6.5 g/dL (6.5-8.0); Triglycerides 124 mg/dL (<150)
[2023-12-20 14:07] LABS: Thyroid Stimulating Hormone 0.73 uIU/mL (0.32-4.0)
== END 2023-12-20 12:15 | disposition home or self-care (01) ==
LOC: HO.LAB 12:14
PROVIDERS: PCP Internal Medicine; Visit Provider Internal Medicine
DX: I42.9 Cardiomyopathy, unspecified (principal); I50.9 Heart failure, unspecified
CPT/HCPCS: 36415; 80048; 80061; 80076; 81001; 84443

== ENCOUNTER 2024-02-26 17:56 | Emergency (ER) | payer OTHER, SELFPAY ==
[2024-02-26 18:04] VITALS: BP 217/84; PULSE 94; RESP 20; TEMP 37.2; O2SAT 98; BMI 37.4
--- NOTE | 2024-02-26 18:04 | ED.GENADULT ---
HPI - General Adult General Chief complaint: Upper Respiratory Symptoms Stated complaint: headache Time Seen by Provider: 02/26/24 20:29 Source: patient, RN notes reviewed and old records reviewed Mode of arrival: ambulatory Limitations: no limitations History of Present Illness ED Provider: Alex HPI narrative: 48-year-old male past medical history significant for hypertension, congestive heart failure, anxiety, depression, sleep apnea, obesity presents for evaluation of headache Patient reports he developed a headache with nausea and coughing yesterday. His sister is positive for COVID-19 The patient took a COVID test today which, positive but he states that that test had He denies any fevers, chills He denies any chest pain His overall discomfort level is 7/10. He did not take any medications to help alleviate his symptoms Related Data Previous Rx's ?Medication ?Instructions ?Recorded hydrocortisone 2.5 % topical cream 1 appl topical BID PRN rash #20 07/20/21 grams acetaminophen 500 mg tablet 500 mg PO Q6H PRN pain or fever 09/23/21 (Tylenol Extra Strength) #20 tabs blood pressure kit-extra large #1 ea 11/18/21 cyclobenzaprine 5 mg tablet 5 mg PO Q8H PRN pain (scale score 04/16/22 7-10) 5 days #14 tabs potassium chloride 20 mEq 20 meq PO BID #60 tabs 11/23/22 tablet,extended release hydroxyzine HCl 25 mg tablet 25 mg PO BID PRN anxiety #14 tabs 01/26/23 losartan 100 mg tablet 100 mg PO DAILY #90 tabs 04/25/23 bumetanide 1 mg tablet 1 mg PO DAILY #110 tabs 05/26/23 cholecalciferol (vitamin D3) 50 50 mcg PO DAILY #90 tabs 05/26/23 mcg (2,000 unit) tablet spironolactone 25 mg tablet 25 mg PO DAILY #90 tabs 05/26/23 sacubitril 49 mg-valsartan 51 mg 1 tab PO BID #60 tabs 11/18/23 tablet (Entresto) atorvastatin 40 mg tablet 40 mg PO DAILY #90 tabs 12/22/23 carvedilol 6.25 mg tablet 6.25 mg PO BID 90 days #180 tabs 12/22/23 jtghxfzbnd-jaynhqmnbufuv-rjdzyram 1 cap PO Q6H PRN headache #12 caps 02/26/24 50 mg-300 mg-40 mg capsule (Fioricet) ondansetron 4 mg disintegrating 4 mg PO Q8H PRN nausea and 02/26/24 tablet vomiting #20 tabs Allergies Allergy/AdvReac Type Severity Reaction Status Date / Time No Known Allergies Allergy Verified 02/26/24 18:05 [No Known Allergies*] Review of Systems Constitutional: Constitutional: Reports body ache(s), Denies chills, Denies fever(s), Reports headache(s), Reports malaise and Reports weakness Eyes: Eyes: Denies blurry vision ENT: Reports headache(s) and Denies sore throat Cardiovascular: Cardiovascular: Denies chest pain and Denies dyspnea Respiratory: Respiratory: Reports cough and Denies dyspnea Gastrointestinal: Gastrointestinal: Denies abdominal pain, Reports nausea and Reports vomiting Musculoskeletal: Musculoskeletal: Denies back pain Integumentary/Breasts: Skin/Breast: Denies rash Neurologic: Reports headache(s) and Reports weakness PMFSH Past Medical History Medical History Morbid obesity CHF (congestive heart failure) Cardiomyopathy Obesity Diverticulitis Surgical History No pertinent past surgical history Family History Family History Father Coronary artery disease CKD (chronic kidney disease) Mother HTN (hypertension) Anxiety Sister Heart disease Other Colon cancer Social History Social History Household Members: Significant Other Housing: Apartment Do you presently have visiting nurse or other home services: No Alcohol intake: former Patient Tobacco Use Status: Former Tobacco user Years Smoked: 20 +/- e-Cigarette/Vaping Use: Never Used Second Hand Smoke Exposure: No Advance Directives: No Advance Directives Information Provided: No Do you have a plan to hurt others: No Plan service: No Current occupational status: unemployed Cognitive needs: No Hearing needs: No Vision needs: No Physical Exam ED Vital Signs: Vital Signs - 24 hr 02/26/24 18:04 02/26/24 20:34 Temperature 98.9 F 98.6 F Pulse Rate 94 90 Respiratory Rate 20 20 Blood Pressure 217/84 H 146/72 H Pulse Oximetry 98 97 Oxygen Delivery Method Room Air Room Air BMI result Body Mass Index 37.4 Const General: healthy appearing, comfortable, no acute distress, alert and awake Nutritional Appearance: well nourished Orientation/consciousness: patient oriented x3 HENMT Head: Yes normocephalic and Yes atraumatic Throat: Yes posterior oropharynx normal Eyes Eyelids: Yes eyelids normal Conjunctivae: conjunctivae normal Sclerae: sclerae normal Corneas: corneas normal Pupils: Equal, round and reactive pupils present EOM: EOMs intact bilaterally Neck Neck: Yes full ROM Resp Effort & Inspection: normal respiratory effort, able to speak in complete sentences, no audible wheezes and not labored Auscultation: clear to auscultation bilaterally Cardio Rate: regular rate Rhythm: regular rhythm GI Inspection: No distended Palpation (GI): Soft to palpation, not firm, nontender, no guarding and not rigid Skin General skin exam: elasticity normal Neuro General: patient oriented x3 Cranial nerves: Yes CN's II-XII intact bilaterally, Yes Equal, round and reactive pupils present and Yes Bilaterally intact EOM present Cognition (Neuro): normal cognition Extrem Other: Moving all extremities well without any obvious deformities Course Course Course Narrative: This is a rapid medical exam performed by Kayden Carrasco NP: Additional HPI, ROS, PE not included below will be deferred to primary provider. Patient is a 48-year-old male with history of CHF, cardiomyopathy, morbid obesity presenting to the ED with complaint of headache, nausea and vomiting since yesterday. Sister recently positive for Covid. He took a Covid test at home which was positive but patient states the test was . Plan: viral serology, basic labs Medical Decision Making Medical Decision Making MDM Narrative: 48-year-old male presents for evaluation of flu-like symptoms. Patient took a home COVID test that was positive at home. Repeat COVID testing today is also positive. Patient was initially quite hypertensive on arrival at 217/84. His repeat was 146/72. This improved without intervention, the remainder of the vital signs are within normal limits. Patient's labs are significant for a mild normocytic anemia which is chronic for him. His electrolytes are without significant abnormality warranting intervention. His BUN is low at 8, his glucose is 164, but this was a random draw. His electrolytes are within normal limits. Differential Diagnosis Differential Diagnoses: The differential diagnosis associated with the presentation includes COVID-19 Influenza Upper respiratory infection Acute headache Hypertension Lab Data MDM Lab Attestation statement: I reviewed the patient's lab results. Please see medical decision-making above 02/26/24 18:41 02/26/24 18:41 Labs: Lab Results 02/26/24 Range/Units 18:41 WBC 8.3 (4.8-10.8) X10*3/uL RBC 4.62 (4.60-5.80) X10*6/uL Hgb 13.5 L (14.0-18.0) g/dl Hct 40.2 L (42.0-52.0) % MCV 87.0 (80.0-98.0) fL MCH 29.2 (27.0-33.0) pg MCHC 33.6 (31.0-36.0) g/dl RDW 12.7 (11.0-16.0) % Plt Count 199 (160-400) X10*3/uL MPV 10.2 (9.4-12.4) fL Immature Gran % (Auto) 0.2 (0.0-0.4) % Neut % (Auto) 81.5 H (45-73) % Lymph % (Auto) 10.8 L (20-40) % [place] % (Auto) 6.6 (2-11) % Eos % (Auto) 0.7 (0-4) % Baso % (Auto) 0.2 (0-2) % Lymph # (Auto) 0.9 L (1.2-4.9) X10*3/uL [place] # (Auto) 0.6 (0.1-1.2) X10*3/uL Eos # (Auto) 0.1 (0.0-0.4) X10*3/uL Baso # (Auto) 0.0 (0.0-0.2) X10*3/uL Abs Immat Gran (auto) 0.02 (0.00-0.03) X10*3/uL Absolute Neuts (auto) 6.8 (2.0-8.3) x10*3/uL Absolute Nucleated RBC 0.000 (0.0-0.012) X10*3/uL Nucleated RBC % (auto) 0.0 (0.0-0.2) /100WBC Sodium 139 (135-145) mmol/L Potassium 3.4 (3.3-5.1) mmol/L Chloride 105 (96-108) mmol/L Carbon Dioxide 24 (22-29) mmol/L Anion Gap 13 (12-20) BUN 8 L (9-16) mg/dL Creatinine 0.94 (0.5-1.4) mg/dL Estim Creat Clear Calc 115.1 Estimated GFR > 60 Random Glucose 164 H (60-115) mg/dL Calcium 8.6 (8.4-10.2) mg/dL Total Bilirubin 0.4 (0.0-1.0) mg/dL AST 11 (5-37) U/L ALT 14 (0-40) U/L Alkaline Phosphatase 86 (39-117) U/L Total Protein 6.4 L (6.5-8.0) g/dL Albumin 3.6 (3.5-5.0) g/dL Influenza Type A (PCR) NEGATIVE (Negative) Influenza Type B (PCR) NEGATIVE (Negative) RSV RNA Qual (PCR) NEGATIVE (Negative) SARS-CoV-2 RNA (RT-PCR) POSITIVE A (Negative) Discharge Plan Discharge Clinical Impression: COVID-19 Patient Disposition: Home, Self-Care Instructions: COVID-19 (Coronavirus Disease 2019) (ED) Additional Instructions: You tested positive for COVID-19. You may use ibuprofen as needed for headaches. Use Zofran as needed for nausea and vomiting. Take Fioricet as needed for headaches. Do not take any additional Tylenol with Fioricet as Tylenol is already in this medication Take all your other medications as prescribed Follow-up with your primary doctor, return for new or worsening symptoms Your blood pressure was very elevated when you initially presented to the ER. It was as high as 217/84 but improved to 146/72 without any intervention It is important to follow this up with your primary doctor Prescriptions: New ondansetron 4 mg tablet,disintegrating 4 mg PO Q8H PRN (Reason: nausea and vomiting) Qty: 20 0RF opzxrywuxi-vkcrvivgsvszv-dhls [Fioricet] 50-300-40 mg capsule 1 cap PO Q6H PRN (Reason: headache) Qty: 12 0RF No Action potassium chloride 20 mEq tablet extended release 20 meq PO BID Qty: 60 0RF hydroxyzine HCl 25 mg tablet 25 mg PO BID PRN (Reason: anxiety) Qty: 14 0RF losartan 100 mg tablet 100 mg PO DAILY Qty: 90 1RF spironolactone 25 mg tablet 25 mg PO DAILY Qty: 90 2RF cholecalciferol (vitamin D3) 50 mcg (2,000 unit) tablet 50 mcg PO DAILY Qty: 90 2RF bumetanide 1 mg tablet 1 mg PO DAILY Qty: 110 2RF Rx Instructions: TAKE 1 TABLET DAILY. ADDITIONAL TABLET IF NEEDED FOR WEIGHT GAIN OVER 5 LBS atorvastatin 40 mg tablet 40 mg PO DAILY Qty: 90 1RF carvedilol 6.25 mg tablet 6.25 mg PO BID 90 Days Qty: 180 3RF Rx Instructions: must administer with a meal/food acetaminophen [Tylenol Extra Strength] 500 mg tablet 500 mg PO Q6H PRN (Reason: pain or fever) Qty: 20 0RF (DME) blood pressure kit-extra large Kit See Rx Instructions .Route Qty: 1 0RF Rx Instructions: As directed cyclobenzaprine 5 mg tablet 5 mg PO Q8H PRN (Reason: pain (scale score 7-10)) 5 Days Qty: 14 0RF hydrocortisone 2.5 % cream 1 appl topical BID PRN (Reason: rash) Qty: 20 0RF Entresto 49-51 mg tablet 1 tab PO BID Qty: 60 5RF Rx Instructions: Replaces Losartan Stand Alone Forms: Work/School Release Interventions: ED Discharge Assessment Last Done: 02/26/24 20:54 Print Language: Sinhala
[2024-02-26 18:48] LABS: MANUAL DIFF FLAG NO
[2024-02-26 18:52] LABS: Basophils Percent Auto 0.2 % (0-2); Eosinophils Absolute Auto 0.1 X10*3/uL (0.0-0.4); Eosinophils Percent Auto 0.7 % (0-4); Hematocrit 40.2 % (42.0-52.0); Hemoglobin 13.5 g/dl (14.0-18.0); Imm Gran Abs Auto 0.02 X10*3/uL (0.00-0.03); Imm Gran Pct Auto 0.2 % (0.0-0.4); Lymphocytes Absolute Auto 0.9 X10*3/uL (1.2-4.9); Lymphocytes Percent Auto 10.8 % (20-40); Mean Corpuscular HGB Conc 33.6 g/dl (31.0-36.0); Mean Corpuscular Hemoglobin 29.2 pg (27.0-33.0); Mean Platelet Volume 10.2 fL (9.4-12.4); Monocytes Absolute Auto 0.6 X10*3/uL (0.1-1.2); Monocytes Percent Auto 6.6 % (2-11); Neutrophils Absolute Auto 6.8 x10*3/uL (2.0-8.3); Neutrophils Percent Auto 81.5 % (45-73); Platelet Count 199 X10*3/uL (160-400); Red Blood Count 4.62 X10*6/uL (4.60-5.80); Red Cell Distribution Width 12.7 % (11.0-16.0); White Blood Count 8.3 X10*3/uL (4.8-10.8)
[2024-02-26 19:16] LABS: Alanine Aminotransferase 14 U/L (0-40); Albumin Level 3.6 g/dL (3.5-5.0); Alkaline Phosphatase 86 U/L (39-117); Anion Gap 13 (12-20); Aspartate Amino Transferase 11 U/L (5-37); Bilirubin Total 0.4 mg/dL (0.0-1.0); Blood Urea Nitrogen 8 mg/dL (9-16); Calcium 8.6 mg/dL (8.4-10.2); Carbon Dioxide 24 mmol/L (22-29); Chloride 105 mmol/L (96-108); Creatinine Clr Calc Pharmacy 115.1; Estimated Glomerular Filt Rate > 60; Glucose Random 164 mg/dL (60-115); Potassium 3.4 mmol/L (3.3-5.1); Sodium 139 mmol/L (135-145); Total Protein 6.4 g/dL (6.5-8.0)
[2024-02-26 19:32] LABS: Influenza A PCR NEGATIVE (Negative); Influenza B PCR NEGATIVE (Negative); Resp Syncy Virus RNA Qual PCR NEGATIVE (Negative); SARS COV2 PCR INHOUSE POSITIVE (Negative)
[2024-02-26 20:34] VITALS: BP 146/72; PULSE 90; RESP 20; TEMP 37; O2SAT 97
[2024-02-26] MEDS: Butalb/Acetamin/Caff 50/325/40 TABLET 1 TAB PO (20:52)
[2024-02-26] MEDS: Ondansetron ODT 4 MG TAB.RAPDIS TRANSLINGU (20:52)
[2024-02-26 20:54] VITALS: BP 146/72; PULSE 90; RESP 20; TEMP 37; O2SAT 97
== END 2024-02-26 20:55 | disposition home or self-care (01) ==
PROVIDERS: Registered Nurse Emergency; Emergency Provider Emergency Medicine; PCP Internal Medicine
DX: U07.1 COVID-19 (principal); R51.9 Headache, unspecified; I10 Essential (primary) hypertension; R11.0 Nausea; R05.9 Cough, unspecified; Z87.891 Personal history of nicotine dependence
CPT/HCPCS: 0241U; 80053; 85025; 99283

== ENCOUNTER 2024-05-15 13:03 | Emergency (ER) | payer OTHER, SELFPAY ==
--- NOTE | ~2024-05-15 | XR_ITS ---
EXAMINATION: XR FOOT, LEFT CLINICAL INFORMATION: Foot pain COMPARISON: None available. TECHNIQUE: AP, lateral, and oblique views of the left foot. FINDINGS: The bones are normal. No fracture. Alignment is anatomic. Joint spaces are maintained. Diffuse soft tissue swelling. XR/XR foot LT 2V IMPRESSION: Diffuse soft tissue swelling. Electronically signed by: Sherita Hooks MD 05/15/2024 03:26 PM EDT RP
--- NOTE | ~2024-05-15 | XR_ITS ---
EXAMINATION: XR ANKLE, LEFT CLINICAL INFORMATION: Pain and swelling COMPARISON: None available. TECHNIQUE: 2 views of the left ankle. FINDINGS: No fracture. Alignment is anatomic. No erosions. Joint spaces are maintained. Diffuse subcutaneous edema and swelling. XR/XR ankle LT min 3V IMPRESSION: Diffuse subcutaneous edema and swelling. Electronically signed by: Sherita Hooks MD 05/15/2024 03:25 PM EDT RP
--- NOTE | ~2024-05-15 | US_ITS ---
EXAMINATION: US TRIPLEX LOWER EXTREMITY, LEFT CLINICAL INFORMATION: Left ankle/foot swelling COMPARISON: Bilateral lower extremity duplex on 06/24/2021 TECHNIQUE: Color-flow triplex imaging with spectral analysis and compression Doppler were performed on the left lower extremity. FINDINGS: Respiratory variation, normal compression and augmented flow are noted throughout the left lower extremity. The visualized common femoral vein, superficial femoral vein, profunda femoral vein, popliteal vein and midcalf peroneal and posterior tibial venous segments show no evidence of deep venous thrombosis. There is no Moon's cyst. US/US venous duplex LE LT IMPRESSION: No evidence of deep venous thrombosis involving the left lower extremity. Electronically signed by: Sherita Hooks MD 05/15/2024 03:25 PM EDT
[2024-05-15 13:08] VITALS: BP 210/102; PULSE 87; RESP 16; TEMP 36.5; O2SAT 98; BMI 48.0
--- NOTE | 2024-05-15 13:10 | ED_ITS ---
HPI - Extremity Injury (Lower) General Chief Complaint: Extremity Injury, Lower Stated Complaint: L ankle pain Time Seen by Provider: 05/15/24 13:32 Source: patient Mode of arrival: ambulatory Limitations: no limitations History of Present Illness ED Provider: Armand Lima PA-C HPI Narrative: 48 yold male with pmh of cardionyopathy/, depression, hyperlipidemia, hypokalemia, and hypertension presents to ED for left posterior ankle/foot pain with swelling without any trauma. Patient woke up with severe posterior ankle left heel pain this morning. Patient denies any redness, calf pain, chest pain, shortness of breath, or pleurisy. Patient denies hitting any cracking sound in foot. Patient admits to not taking his high blood pressure medications. Patient came to the ED to be evaluated and due to the pain. Related Data Previous Rx's ?Medication ?Instructions ?Recorded hydrocortisone 2.5 % topical cream 1 appl topical BID PRN rash #20 07/20/21 grams acetaminophen 500 mg tablet 500 mg PO Q6H PRN pain or fever 09/23/21 (Tylenol Extra Strength) #20 tabs blood pressure kit-extra large #1 ea 11/18/21 cyclobenzaprine 5 mg tablet 5 mg PO Q8H PRN pain (scale score 04/16/22 7-10) 5 days #14 tabs potassium chloride 20 mEq 20 meq PO BID #60 tabs 11/23/22 tablet,extended release hydroxyzine HCl 25 mg tablet 25 mg PO BID PRN anxiety #14 tabs 01/26/23 losartan 100 mg tablet 100 mg PO DAILY #90 tabs 04/25/23 spironolactone 25 mg tablet 25 mg PO DAILY #90 tabs 05/26/23 sacubitril 49 mg-valsartan 51 mg 1 tab PO BID #60 tabs 11/18/23 tablet (Entresto) atorvastatin 40 mg tablet 40 mg PO DAILY #90 tabs 12/22/23 carvedilol 6.25 mg tablet 6.25 mg PO BID 90 days #180 tabs 12/22/23 rutwlnzmum-jgyttxbtnihzy-htxmemqx 1 cap PO Q6H PRN headache #12 caps 02/26/24 50 mg-300 mg-40 mg capsule (Fioricet) ondansetron 4 mg disintegrating 4 mg PO Q8H PRN nausea and 02/26/24 tablet vomiting #20 tabs bumetanide 1 mg tablet 1 mg PO DAILY #110 tabs 03/26/24 cholecalciferol (vitamin D3) 50 50 mcg PO DAILY #90 tabs 03/26/24 mcg (2,000 unit) tablet naproxen 500 mg tablet 500 mg PO BID PRN pain 7 days #14 05/15/24 tabs prednisone 20 mg tablet 40 mg (2 x 20 mg) PO DAILY 5 days 05/15/24 #10 tabs Allergies Allergy/AdvReac Type Severity Reaction Status Date / Time No Known Allergies Allergy Verified 05/15/24 13:12 [No Known Allergies*] Review of Systems 2 Review of Systems: Left ankle heel pain Yes all other systems are reviewed and are negative [facility] Past Medical History Medical History Morbid obesity CHF (congestive heart failure) Cardiomyopathy Obesity Diverticulitis Surgical History No pertinent past surgical history Family History Family History Father Coronary artery disease CKD (chronic kidney disease) Mother HTN (hypertension) Anxiety Sister Heart disease Other Colon cancer Social History Social History Household Members: Significant Other Housing: Apartment Do you presently have visiting nurse or other home services: No Alcohol intake: former Patient Tobacco Use Status: Former Tobacco user Years Smoked: 20 +/- e-Cigarette/Vaping Use: Never Used Second Hand Smoke Exposure: No Advance Directives: No Advance Directives Information Provided: Yes Do you have a plan to hurt others: No Plan service: No Current occupational status: unemployed Cognitive needs: No Hearing needs: No Vision needs: No Physical Exam 2 Vital Signs: Vital Signs: Last Vital Signs Temp 98.2 F 05/15/24 17:54 Pulse 76 05/15/24 17:54 Resp 16 05/15/24 17:54 BP 175/80 H 05/15/24 17:54 Pulse Ox 99 05/15/24 17:54 O2 Del Method Room Air 05/15/24 17:54 BMI result Body Mass Index 48.0 Const: General: cooperative, healthy appearing, comfortable, no acute distress, well developed, alert, awake and Physically active O rientation/consciousness: patient oriented x3 HEENT: Head: Yes normal to inspection, Yes No palpable skull fracture present, Yes normocephalic and Yes atraumatic Eyes: General: appearance normal, both eyes and all related structures Neck: Neck: Yes normal visual inspection, Yes full ROM, Yes no lymphadenopathy, Yes no meningeal signs, Yes trachea midline, Yes supple, No anterior neck swelling and No tender Chest: Chest palpation & inspection: normal inspection of the chest and normal palpation of entire chest wall Resp: Effort & Inspection: normal respiratory effort and able to speak in complete sentences Cardio: Jugular venous distension: no JVD Heart sounds: S1 normal heart sound present and S2 normal heart sound present GI: Inspection: Yes normal to inspection Palpation (GI): Soft to palpation, not firm, nontender, no guarding and not rigid : General: No CVA tenderness and Yes no CVA tenderness Back/Spine/Pelvis: Back: no CVA tenderness, No CVA tenderness and No back tenderness Skin: General skin exam: no rashes or lesions noted, elasticity normal and turgor normal Neuro: General: patient oriented x3, gait normal, tone normal, moves all extremities, Normal light touch and pain sensation, no meningeal signs, no focal motor deficits, CN's II-XI intact bilaterally and normal sensation to monofilament Extrem: General: Yes normal to inspection, Yes full ROM and Yes capillary refill normal Ankle/foot/toe images: 1. Positive for tenderness on palpation. Positive for slight swelling of left heel foot area. Negative for Achilles tendon tenderness or calf pain. Stein test negative. Motor exam intact but positive for pain. Neurovascular exam intact. Negative for bluish black discoloration. Negative for erythema. Negative for warmth. Negative for crepitus. Psych: Appearance: grossly normal, well kempt and not disheveled Course Course Course Narrative: This is a Rapid Medical Exam performed in triage by Kellie Crawford PA-C. Full HPI, ROS and PE to be performed by primary ED provider. 48-year-old male with a past medical history of cardiomyopathy, CHF, anxiety, depression, HLD, sleep apnea, eczema, HTN, obesity, presenting to the ED c/o Left ankle pain & swelling x1 week s/p waking up. 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 denies injury/fall, hx gout. +tingling PE: Ambulating with limping, antalgic gait, +swelling > lateral aspect. Hypertensive 210/102, denies taking BP medication today secondary to pain Plan: XR, home antihypertensive/Bumex, re-evaluate Medications Administered Discontinued Medications Generic Name Dose Route Start Last Admin Trade Name Aamirq PRN Reason Stop Dose Admin Bumetanide 1 mg 05/15/24 13:17 05/15/24 13:34 Bumetanide 1 Mg Tablet PO 05/15/24 13:18 1 mg ONCE ONE Administration Protocol Carvedilol 6.25 mg 05/15/24 13:17 05/15/24 13:35 Carvedilol 6.25 Mg Tablet PO 05/15/24 13:18 6.25 mg ONCE ONE Administration Protocol Ketorolac Tromethamine 30 mg 05/15/24 15:11 05/15/24 15:33 Ketorolac Tromethamine 30 Mg/Ml Vial IM 05/15/24 15:12 30 mg ONCE ONE Administration Losartan Potassium 100 mg 05/15/24 13:17 05/15/24 13:35 Losartan Potassium 50 Mg Tablet PO 05/15/24 13:18 100 mg ONCE ONE Administration Protocol Prednisone 60 mg 05/15/24 15:11 05/15/24 15:33 Prednisone 20 Mg Tablet PO 05/15/24 15:12 60 mg ONCE ONE Administration Spironolactone 25 mg 05/15/24 13:17 05/15/24 13:33 Spironolactone 25 Mg Tablet PO 05/15/24 13:18 25 mg ONCE ONE Administration Protocol Medical Decision Making Medical Decision Making MDM Narrative: 48-year-old male presents to ED for left posterior lower ankle heel pain with slight swelling and tenderness on palpation. Pain on ambulation. Stein test negative. Patient denies any recent trauma. Patient denies hearing any popping sound in the Achilles. Labs uric BNP ordered. X-ray ordered. Ultrasound to rule out DVT ordered. 5:25pm: X-rays negative fracture. Ultrasound negative for blood clot. BNP normal. Two troponin negative. EKG negative STEMI. Not suspecting arterial occlusion, DVT, osteomyelitis, necrotizing fasciitis, compartment syndrome, dislocation, cellulitis, or abscess. Not suspecting CHF exacerbation. Patient is already on Bumex. Patient maybe developing some plantar fasciitis due to heel pain slight swelling. Patient explained worrisome signs and informed to follow up with primary care provider or return to the ED immediately Differential Diagnosis Differential Diagnoses: The differential diagnosis associated with the presentation includes (Fracture, dislocation, plantar fasciitis) Admission/Observation Consideration of admission/observation: Escalation of care including admission/observation considered Lab Data MDM Lab Attestation statement: I reviewed the patient's lab results. 05/15/24 13:57 05/15/24 13:57 Labs: Lab Results 05/15/24 05/15/24 Range/Units 13:57 16:10 WBC 6.6 (4.8-10.8) X10*3/uL RBC 4.53 L (4.60-5.80) X10*6/uL Hgb 13.2 L (14.0-18.0) g/dl Hct 39.9 L (42.0-52.0) % MCV 88.1 (80.0-98.0) fL MCH 29.1 (27.0-33.0) pg MCHC 33.1 (31.0-36.0) g/dl RDW 13.2 (11.0-16.0) % Plt Count 195 (160-400) X10*3/uL MPV 11.0 (9.4-12.4) fL Immature Gran % (Auto) 0.5 H (0.0-0.4) % Neut % (Auto) 68.1 (45-73) % Lymph % (Auto) 23.7 (20-40) % [place] % (Auto) 5.9 (2-11) % Eos % (Auto) 1.2 (0-4) % Baso % (Auto) 0.6 (0-2) % Lymph # (Auto) 1.6 (1.2-4.9) X10*3/uL [place] # (Auto) 0.4 (0.1-1.2) X10*3/uL Eos # (Auto) 0.1 (0.0-0.4) X10*3/uL Baso # (Auto) 0.0 (0.0-0.2) X10*3/uL Abs Immat Gran (auto) 0.03 (0.00-0.03) X10*3/uL Absolute Neuts (auto) 4.5 (2.0-8.3) x10*3/uL Absolute Nucleated RBC 0.000 (0.0-0.012) X10*3/uL Nucleated RBC % (auto) 0.0 (0.0-0.2) /100WBC PT 11.0 (10.9-12.4) SEC INR 0.9 (0.9-1.1) APTT 26.6 (26.0-36.8) SEC Sodium 144 (135-145) mmol/L Potassium 3.6 (3.3-5.1) mmol/L Chloride 110 H (96-108) mmol/L Carbon Dioxide 25 (22-29) mmol/L Anion Gap 13 (12-20) BUN 16 (9-16) mg/dL Creatinine 0.87 (0.5-1.4) mg/dL Estim Creat Clear Calc 142.9 Estimated GFR > 60 Random Glucose 85 (60-115) mg/dL Uric Acid 5.1 (3.4-7.0) mg/dL Calcium 8.7 (8.4-10.2) mg/dL Total Bilirubin 0.4 (0.0-1.0) mg/dL AST 22 (5-37) U/L ALT 20 (0-40) U/L Alkaline Phosphatase 93 (39-117) U/L Troponin I High Sens 5.1 7.3 (<3.5-35.0) ng/L B-Natriuretic Peptide 161 H (<100) pg/mL Total Protein 6.7 (6.5-8.0) g/dL Albumin 3.7 (3.5-5.0) g/dL Independent Interpretation I performed an independent interpretation of an: EKG (Normal sinus rhythm) Independent Historian Clinical information obtained from an independent historian. History obtained from or confirmed by: Other (Patient) External Record Review External record reviewed: Other (Prior visits) Prescription Management I considered prescription management with: Pain Medication Discharge Plan Discharge Clinical Impression: Foot pain, HTN (hypertension) Patient Disposition: Home, Self-Care Instructions: Leg Edema (ED), Hypertension (ED), Leg Pain (ED) Additional Instructions: Recommend follow-up with primary care provider. You may need referral to podiatry for evaluation of heel pain/inflammation. May need treatment for plantar fasciitis. Return to the ED immediately for any worsening swelling, redness, bluish black discoloration, severe pain, calf pain, chest pain, shortness of breath, fever, chills, or any other concerning symptoms. X-rays and ultrasound came back negative for fracture or blood clot. EKG blood work came back negative for signs of heart attack or congestive heart failure exacerbation. Prescriptions: New naproxen 500 mg tablet 500 mg PO BID PRN (Reason: pain) 7 Days Qty: 14 0RF prednisone 20 mg tablet 40 mg PO DAILY 5 Days Qty: 10 0RF No Action potassium chloride 20 mEq tablet extended release 20 meq PO BID Qty: 60 0RF hydroxyzine HCl 25 mg tablet 25 mg PO BID PRN (Reason: anxiety) Qty: 14 0RF losartan 100 mg tablet 100 mg PO DAILY Qty: 90 1RF spironolactone 25 mg tablet 25 mg PO DAILY Qty: 90 2RF atorvastatin 40 mg tablet 40 mg PO DAILY Qty: 90 1RF carvedilol 6.25 mg tablet 6.25 mg PO BID 90 Days Qty: 180 3RF Rx Instructions: must administer with a meal/food cholecalciferol (vitamin D3) 50 mcg (2,000 unit) tablet 50 mcg PO DAILY Qty: 90 2RF bumetanide 1 mg tablet 1 mg PO DAILY Qty: 110 2RF Rx Instructions: TAKE 1 TABLET DAILY. ADDITIONAL TABLET IF NEEDED FOR WEIGHT GAIN OVER 5 LBS acetaminophen [Tylenol Extra Strength] 500 mg tablet 500 mg PO Q6H PRN (Reason: pain or fever) Qty: 20 0RF ondansetron 4 mg tablet,disintegrating 4 mg PO Q8H PRN (Reason: nausea and vomiting) Qty: 20 0RF ykisgjopmo-dufktsjztvhpo-fbxu [Fioricet] 50-300-40 mg capsule 1 cap PO Q6H PRN (Reason: headache) Qty: 12 0RF (DME) blood pressure kit-extra large Kit See Rx Instructions .Route Qty: 1 0RF Rx Instructions: As directed cyclobenzaprine 5 mg tablet 5 mg PO Q8H PRN (Reason: pain (scale score 7-10)) 5 Days Qty: 14 0RF hydrocortisone 2.5 % cream 1 appl topical BID PRN (Reason: rash) Qty: 20 0RF Entresto 49-51 mg tablet 1 tab PO BID Qty: 60 5RF Rx Instructions: Replaces Losartan Stand Alone Forms: Work/School Release Interventions: ED Discharge Assessment Last Done: 05/15/24 17:54 Discharge Date/Time: 05/15/24 17:54 Print Language: Greek
[2024-05-15 13:33] VITALS: BP 187/92
[2024-05-15] MEDS: Spironolactone 25 MG TABLET PO (13:33)
[2024-05-15 13:34] VITALS: BP 210/102
[2024-05-15] MEDS: Bumetanide 1 MG TABLET PO (13:34)
[2024-05-15 13:35] VITALS: BP 187/92; PULSE 85
[2024-05-15] MEDS: Losartan Potassium 50 MG TABLET 100 MG PO (13:35)
[2024-05-15] MEDS: carvediloL 6.25 MG TABLET PO (13:35)
--- NOTE | 2024-05-15 13:37 | ECG_ITS ---
Test Reason : LOWER LEG SWELLING Blood Pressure : / mmHG Vent. Rate : 081 BPM Atrial Rate : 081 BPM P-R Int : 142 ms QRS Dur : 092 ms QT Int : 372 ms P-R-T Axes : 038 -01 031 degrees QTc Int : 432 ms Normal sinus rhythm Moderate voltage criteria for LVH, may be normal variant ( R in aVL , Carson product ) Borderline ECG When compared to the previous EKG of 24 jun 2021, LVH present Referred By: Armand Lima Electronically Signed By:NORI GARVIN
[2024-05-15 14:05] LABS: MANUAL DIFF FLAG NO
[2024-05-15 14:08] LABS: Basophils Percent Auto 0.6 % (0-2); Eosinophils Absolute Auto 0.1 X10*3/uL (0.0-0.4); Eosinophils Percent Auto 1.2 % (0-4); Hematocrit 39.9 % (42.0-52.0); Hemoglobin 13.2 g/dl (14.0-18.0); Imm Gran Abs Auto 0.03 X10*3/uL (0.00-0.03); Imm Gran Pct Auto 0.5 % (0.0-0.4); Lymphocytes Absolute Auto 1.6 X10*3/uL (1.2-4.9); Lymphocytes Percent Auto 23.7 % (20-40); Mean Corpuscular HGB Conc 33.1 g/dl (31.0-36.0); Mean Corpuscular Hemoglobin 29.1 pg (27.0-33.0); Mean Corpuscular Volume 88.1 fL (80.0-98.0); Monocytes Absolute Auto 0.4 X10*3/uL (0.1-1.2); Monocytes Percent Auto 5.9 % (2-11); Neutrophils Absolute Auto 4.5 x10*3/uL (2.0-8.3); Neutrophils Percent Auto 68.1 % (45-73); Platelet Count 195 X10*3/uL (160-400); Red Blood Count 4.53 X10*6/uL (4.60-5.80); Red Cell Distribution Width 13.2 % (11.0-16.0); White Blood Count 6.6 X10*3/uL (4.8-10.8)
[2024-05-15 14:14] LABS: INTERNATIONAL NORM RATIO 0.9 (0.9-1.1)
[2024-05-15 14:16] LABS: Partial Thromboplastin Time 26.6 SEC (26.0-36.8)
[2024-05-15 14:26] LABS: Alanine Aminotransferase 20 U/L (0-40); Albumin Level 3.7 g/dL (3.5-5.0); Alkaline Phosphatase 93 U/L (39-117); Anion Gap 13 (12-20); Aspartate Amino Transferase 22 U/L (5-37); Bilirubin Total 0.4 mg/dL (0.0-1.0); Blood Urea Nitrogen 16 mg/dL (9-16); Calcium 8.7 mg/dL (8.4-10.2); Carbon Dioxide 25 mmol/L (22-29); Chloride 110 mmol/L (96-108); Creatinine Clr Calc Pharmacy 142.9; Estimated Glomerular Filt Rate > 60; Glucose Random 85 mg/dL (60-115); Potassium 3.6 mmol/L (3.3-5.1); Sodium 144 mmol/L (135-145); Total Protein 6.7 g/dL (6.5-8.0); Uric Acid 5.1 mg/dL (3.4-7.0)
[2024-05-15 14:27] LABS: Troponin-I High Sensitivity 5.1 ng/L (<3.5-35.0)
[2024-05-15 14:28] VITALS: BP 175/80; PULSE 76; RESP 16; TEMP 36.8; O2SAT 99
[2024-05-15 14:31] LABS: B Type Natriuretic Peptide 161 pg/mL (<100)
[2024-05-15] MEDS: predniSONE 20 MG TABLET 60 MG PO (15:33)
[2024-05-15] MEDS: Ketorolac Tromethamine 30 MG/ML VIAL IM (15:33)
[2024-05-15 16:43] LABS: Troponin-I High Sensitivity 7.3 ng/L (<3.5-35.0)
[2024-05-15 17:54] VITALS: BP 175/80; PULSE 76; RESP 16; TEMP 36.8; O2SAT 99
== END 2024-05-15 17:54 | disposition home or self-care (01) ==
PROVIDERS: Physician Assistant; Emergency Provider Emergency Medicine; PCP Internal Medicine
DX: M25.572 Pain in left ankle and joints of left foot (principal); I10 Essential (primary) hypertension; R60.0 Localized edema; R94.31 Abnormal electrocardiogram [ECG] [EKG]; Z87.891 Personal history of nicotine dependence; Z79.899 Other long term (current) drug therapy
CPT/HCPCS: 36415; 73610; 73620; 80053; 83880; 84484; 84550; 85025; 85610; 85730; 93005; 93971; 96372; 99284; J1885

== ENCOUNTER → 2024-05-15 13:37 | Outpatient (BNV) | payer OTHER, SELFPAY | PROVIDERS: Emergency Provider Emergency Medicine; PCP Internal Medicine; Visit Provider Internal Medicine | DX: R22.42 Localized swelling, mass and lump, left lower limb (principal); R94.31 Abnormal electrocardiogram [ECG] [EKG] | CPT/HCPCS: 93010 ==

== ENCOUNTER 2024-08-02 10:57 | Emergency (ER) | payer OTHER, SELFPAY ==
--- NOTE | ~2024-08-02 | XR_ITS ---
EXAMINATION: XR HAND/WRIST, RIGHT CLINICAL INFORMATION: pain -no further clinical information provided. COMPARISON: None available. TECHNIQUE: PA, lateral, oblique, and scaphoid views of the right hand and wrist. FINDINGS: Normal bone mineralization. No fracture, dislocation, malalignment, or suspicious bone lesion. Negative ulnar variance noted. Mild arthritis in the interphalangeal joints, in particular the DIP joints of the second through fifth digits. No discrete soft tissue abnormalities. XR/XR hand wrist RT IMPRESSION: 1. No acute findings. Electronically signed by: Dimas Garcia MD 08/02/2024 12:09 PM [facility]
--- NOTE | ~2024-08-02 | XR_ITS ---
EXAMINATION: XR FOREARM, RIGHT CLINICAL INFORMATION: pain COMPARISON: None available. TECHNIQUE: AP and lateral views of the right forearm were obtained. FINDINGS: The bones and soft tissues are normal. No fracture. Imaged portions of the elbow and wrist are unremarkable. XR/XR forearm RT 2V IMPRESSION: Normal right forearm. Electronically signed by: Dimas Garcia MD 08/02/2024 12:07 PM [facility]
--- NOTE | 2024-08-02 11:05 | ED_ITS ---
HPI - Extremity Injury (Lower) General Chief Complaint: Extremity Problem Stated Complaint: Pain R forearm/hand Time Seen by Provider: 08/02/24 13:16 Source: patient and RN notes reviewed Mode of arrival: ambulatory Limitations: no limitations History of Present Illness ED Provider: Emmanuelle Varma PA-C HPI Narrative: This is a 17-syzn-pcp-male who presents to the ER with complaints of cardi omyopathy, CHF, anxiety, depressnion, HLD, sleep apnea, eczema, HTN, obesity, who presents emergency department with concerns for right forearm and wrist pain since yesterday. 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 Denies any numbness or tingling. Denies hx of similar symptoms. No other complaints or concerns at this time. Other symptoms: none Related Data Previous Rx's ?Medication ?Instructions ?Recorded hydrocortisone 2.5 % topical cream 1 appl topical BID PRN rash #20 07/20/21 grams acetaminophen 500 mg tablet 500 mg PO Q6H PRN pain or fever 09/23/21 (Tylenol Extra Strength) #20 tabs blood pressure kit-extra large #1 ea 11/18/21 cyclobenzaprine 5 mg tablet 5 mg PO Q8H PRN pain (scale score 04/16/22 7-10) 5 days #14 tabs potassium chloride 20 mEq 20 meq PO BID #60 tabs 11/23/22 tablet,extended release hydroxyzine HCl 25 mg tablet 25 mg PO BID PRN anxiety #14 tabs 01/26/23 losartan 100 mg tablet 100 mg PO DAILY #90 tabs 04/25/23 spironolactone 25 mg tablet 25 mg PO DAILY #90 tabs 05/26/23 sacubitril 49 mg-valsartan 51 mg 1 tab PO BID #60 tabs 11/18/23 tablet (Entresto) atorvastatin 40 mg tablet 40 mg PO DAILY #90 tabs 12/22/23 carvedilol 6.25 mg tablet 6.25 mg PO BID 90 days #180 tabs 12/22/23 azcgpkjswm-fnxenmvzzfetx-qxunupsu 1 cap PO Q6H PRN headache #12 caps 02/26/24 50 mg-300 mg-40 mg capsule (Fioricet) ondansetron 4 mg disintegrating 4 mg PO Q8H PRN nausea and 02/26/24 tablet vomiting #20 tabs bumetanide 1 mg tablet 1 mg PO DAILY #110 tabs 03/26/24 cholecalciferol (vitamin D3) 50 50 mcg PO DAILY #90 tabs 03/26/24 mcg (2,000 unit) tablet naproxen 500 mg tablet 500 mg PO BID PRN pain 7 days #14 05/15/24 tabs prednisone 20 mg tablet 40 mg (2 x 20 mg) PO DAILY 5 days 05/15/24 #10 tabs acetaminophen 500 mg tablet 500 mg PO Q6H PRN pain #30 tabs 08/02/24 Allergies Allergy/AdvReac Type Severity Reaction Status Date / Time No Known Allergies Allergy Verified 08/02/24 11:13 [No Known Allergies*] Review of Systems Review of Systems: Yes all other systems are reviewed and are negative [facility] Past Medical History Attestation statement: The following information was validated with the patient. Medical History Morbid obesity CHF (congestive heart failure) Cardiomyopathy Obesity Diverticulitis Surgical History No pertinent past surgical history Family History Family History Father Coronary artery disease CKD (chronic kidney disease) Mother HTN (hypertension) Anxiety Sister Heart disease Other Colon cancer Social History Social History Household Members: Significant Other Housing: Apartment Do you presently have visiting nurse or other home services: No Alcohol intake: former Patient Tobacco Use Status: Former Tobacco user Years Smoked: 20 +/- e-Cigarette/Vaping Use: Never Used Second Hand Smoke Exposure: No Advance Directives: No Advance Directives Information Provided: Yes service: No Current occupational status: unemployed Cognitive needs: No Hearing needs: No Vision needs: No Physical Exam Vital Signs: Vital Signs: Last Vital Signs Temp 97.6 F 08/02/24 11:12 Pulse 100 08/02/24 11:12 Resp 16 08/02/24 11:12 BP 206/98 H 08/02/24 11:12 Pulse Ox 99 08/02/24 11:12 O2 Del Method Room Air 08/02/24 11:12 BMI result Body Mass Index 50.7 Const: Other: General: Awake, alert, and oriented X3. No acute distress. HEENT: Normal inspection CVS: Normal heart rate and rhythm. Pulses normal. Respiratory: No respiratory distress Skin: Warm, dry, no rashes noted to exposed skin. Normal skin color. Normal skin turgor. Extremities: Strong radial pulse. Tenderness palpation along the right 5th metatarsal, wrist, and forearm. Full ROM. Negative Tinels sign, negative prayer sign. Cap refill intact. sensation intact. No overlying erythema, warmth, skin breakdown. Neuro: Oriented X 3. No motor deficit. No sensory deficit. Medical Decision Making Medical Decision Making MDM Narrative: This is a 57-oerg-pbx-male who presents to the ER with complaints of cardiomyopathy, CHF, anxiety, depressnion, HLD, sleep apnea, eczema, HTN, obesity, who presents emergency department with concerns for right forearm and wrist pain since yesterday. 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 BP elevated, forgot to take his BP meds this AM. Strong radial pulse. Tenderness palpation along the right 5th metatarsal, wrist, and forearm. DDX including carpal tunnel, sprain, strain. Xrays performed to r/o abnormalities. No abnormalities seen. Pt's symptoms likely secondary to carpal tunnel/MSK pain, given wrist splint, ortho f/u and strict return precautions. Advised to take BP meds at home, he has no CP/SOB, vision changes, dizziness. Stable for d/c. Differential Diagnosis Differential Diagnoses: The differential diagnosis associated with the presentation includes see above Radiology Impression Discussion of test interpretation with radiology: I have reviewed the radiologist's reading. Radiologist Impression: EXAMINATION: XR FOREARM, RIGHT CLINICAL INFORMATION: pain COMPARISON: None available. TECHNIQUE: AP and lateral views of the right forearm were obtained. FINDINGS: The bones and soft tissues are normal. No fracture. Imaged portions of the elbow and wrist are unremarkable. XR/XR forearm RT 2V IMPRESSION: Normal right forearm. Electronically signed by: Dimas Garcia MD 08/02/2024 12:07 PM [facility] Dictated By: Dimas Garcia MD EXAMINATION: XR HAND/WRIST, RIGHT CLINICAL INFORMATION: pain -no further clinical information provided. COMPARISON: None available. TECHNIQUE: PA, lateral, oblique, and scaphoid views of the right hand and wrist. FINDINGS: Normal bone mineralization. No fracture, dislocation, malalignment, or suspicious bone lesion. Negative ulnar variance noted. Mild arthritis in the interphalangeal joints, in particular the DIP joints of the second through fifth digits. No discrete soft tissue abnormalities. XR/XR hand wrist RT IMPRESSION: 1. No acute findings. Electronically signed by: Dimas Garcia MD 08/02/2024 12:09 PM [facility] Dictated By: Dimas Garcia MD Discharge Plan Discharge Clinical Impression: Wrist pain, right, Hypertension Patient Disposition: Home, Self-Care Instructions: Wrist Injury (ED) Additional Instructions: You were seen in the ER due to the wrist pain. Your x-rays do not show any bony abnormalities. This is likely due to inflammation in your wrist. Please use wrist splint. Rest, ice, and take Tylenol as prescribed. Follow-up with the pals specialist. If any new or worsening symptoms occur including but not limited to chest pain, shortness for breath, inability to move wrist, increased redness, swelling, please seek emergent care. Your blood pressure was very high as you did not take her blood pressure medicine, please take your blood pressure medicine as soon as you get home. Prescriptions: New acetaminophen 500 mg tablet 500 mg PO Q6H PRN (Reason: pain) Qty: 30 0RF No Action potassium chloride 20 mEq tablet extended release 20 meq PO BID Qty: 60 0RF hydroxyzine HCl 25 mg tablet 25 mg PO BID PRN (Reason: anxiety) Qty: 14 0RF losartan 100 mg tablet 100 mg PO DAILY Qty: 90 1RF spironolactone 25 mg tablet 25 mg PO DAILY Qty: 90 2RF atorvastatin 40 mg tablet 40 mg PO DAILY Qty: 90 1RF carvedilol 6.25 mg tablet 6.25 mg PO BID 90 Days Qty: 180 3RF Rx Instructions: must administer with a meal/food cholecalciferol (vitamin D3) 50 mcg (2,000 unit) tablet 50 mcg PO DAILY Qty: 90 2RF bumetanide 1 mg tablet 1 mg PO DAILY Qty: 110 2RF Rx Instructions: TAKE 1 TABLET DAILY. ADDITIONAL TABLET IF NEEDED FOR WEIGHT GAIN OVER 5 LBS acetaminophen [Tylenol Extra Strength] 500 mg tablet 500 mg PO Q6H PRN (Reason: pain or fever) Qty: 20 0RF ondansetron 4 mg tablet,disintegrating 4 mg PO Q8H PRN (Reason: nausea and vomiting) Qty: 20 0RF kgzddlailj-uexzhwlmnydiw-yqdf [Fioricet] 50-300-40 mg capsule 1 cap PO Q6H PRN (Reason: headache) Qty: 12 0RF naproxen 500 mg tablet 500 mg PO BID PRN (Reason: pain) 7 Days Qty: 14 0RF prednisone 20 mg tablet 40 mg PO DAILY 5 Days Qty: 10 0RF (DME) blood pressure kit-extra large Kit See Rx Instructions .Route Qty: 1 0RF Rx Instructions: As directed cyclobenzaprine 5 mg tablet 5 mg PO Q8H PRN (Reason: pain (scale score 7-10)) 5 Days Qty: 14 0RF hydrocortisone 2.5 % cream 1 appl topical BID PRN (Reason: rash) Qty: 20 0RF Entresto 49-51 mg tablet 1 tab PO BID Qty: 60 5RF Rx Instructions: Replaces Losartan Referrals: [facility] [Provider Group] Stand Alone Forms: Work/School Release Discharge Date/Time: 08/02/24 14:14 Print Language: Cambodian
[2024-08-02 11:12] VITALS: BP 206/98; PULSE 100; RESP 16; TEMP 36.4; O2SAT 99; BMI 50.7
== END 2024-08-02 14:14 | disposition home or self-care (01) ==
PROVIDERS: Emergency Provider Emergency Medicine; PCP Internal Medicine
DX: M79.641 Pain in right hand (principal); M79.631 Pain in right forearm; I10 Essential (primary) hypertension; Z79.899 Other long term (current) drug therapy
CPT/HCPCS: 73090; 73110; 73130; 99281; 99283

== ENCOUNTER → 2024-08-02 11:15 | Outpatient (BNV) | payer OTHER, SELFPAY | PROVIDERS: PCP Internal Medicine; Visit Provider Radiology Diagnostic Radiology | DX: M79.641 Pain in right hand (principal); M79.631 Pain in right forearm | CPT/HCPCS: 73090; 73130 ==

== ENCOUNTER 2025-04-16 13:54 | Inpatient (IN) | payer MEDICAID, SELFPAY ==
[2025-04-16] VITALS (10 sets, daily range): BP systolic 179–225; BP diastolic 92–120; PULSE 80–100; RESP 22–40; TEMP 36.8–37.1; O2SAT 94–96; BMI 52.3
--- NOTE | ~2025-04-16 | XR_ITS ---
EXAMINATION: XR CHEST 2 VIEWS HISTORY: SOB COMPARISON: Correlation is made with the prior examination dated 06/24/2021. FINDINGS: PA and lateral views of the chest are submitted. The lungs are expanded and clear. There is mild pulmonary vascular prominence which maybe chronic. There is no pneumothorax or pleural effusion. The heart remains markedly enlarged. There is degenerative disc disease of the spine. XR/XR chest 2V IMPRESSION: Cardiomegaly. No acute cardiopulmonary abnormality. Electronically signed by: Ashu Betancourt MD 04/16/2025 03:04 PM EDT
--- NOTE | 2025-04-16 14:02 | ECG_ITS ---
Test Reason : CHEST PAIN Blood Pressure : */* mmHG Vent. Rate : 91 BPM Atrial Rate : 91 BPM P-R Int : 140 ms QRS Dur : 92 ms QT Int : 388 ms P-R-T Axes : 35 -10 39 degrees QTcB Int : 477 ms Normal sinus rhythm Nonspecific ST and T wave abnormality Abnormal ECG When compared with ECG of 15-May-2024 13:36, Nonspecific T wave abnormality now evident in Lateral leads Referred By: Generic ED Physician Electronically Signed By: NORI GARVIN
--- NOTE | 2025-04-16 14:28 | ED.SOB ---
HPI - SOB/Dyspnea General Chief Complaint: Dyspnea Stated Complaint: Heart failure, swelling in extremities Time Seen by Provider: 04/16/25 15:11 History of Present Illness ED Provider: Jerry Rosales MD HPI Narrative: 49-year-old male history of nonischemic cardiomyopathy low EF previously but interval echo showed normal EF. He has been without his meds for an entire month he tells me there is insurance issues. He reports edema of the abdomen and legs bilaterally shortness of breath, PND and orthopnea. No cough, no hemoptysis, no fever. Related Data Previous Rx's ?Medication ?Instructions ?Recorded blood pressure kit-extra large #1 ea 11/18/21 hydroxyzine HCl 25 mg tablet 25 mg PO BID PRN anxiety #14 tabs 01/26/23 losartan 100 mg tablet 100 mg PO DAILY #90 tabs 04/25/23 spironolactone 25 mg tablet 25 mg PO DAILY #90 tabs 05/26/23 sacubitril 49 mg-valsartan 51 mg 1 tab PO BID #60 tabs 11/18/23 tablet (Entresto) atorvastatin 40 mg tablet 40 mg PO DAILY #90 tabs 12/22/23 carvedilol 6.25 mg tablet 6.25 mg PO BID 90 days #180 tabs 12/22/23 bumetanide 1 mg tablet 1 mg PO DAILY #110 tabs 03/26/24 cholecalciferol (vitamin D3) 50 50 mcg PO DAILY #90 tabs 03/26/24 mcg (2,000 unit) tablet Allergies Allergy/AdvReac Type Severity Reaction Status Date / Time No Known Allergies (No Known Allergy Verified 04/16/25 14:30 Allergies*) [facility] Past Medical History Medical History Morbid obesity CHF (congestive heart failure) Cardiomyopathy Obesity Diverticulitis Surgical History No pertinent past surgical history Family History Family History Father Coronary artery disease CKD (chronic kidney disease) Mother HTN (hypertension) Anxiety Sister Heart disease Other Colon cancer Social History Social History Household Members: Significant Other Housing: Apartment Do you presently have visiting nurse or other home services: No Alcohol intake: current Alcohol intake frequency: holidays/special occasions only Patient Tobacco Use Status: Former Tobacco user Years Smoked: 20 +/- Smoked in Last 30 Days: No e-Cigarette/Vaping Use: Never Used Second Hand Smoke Exposure: No Use of substances other than those prescribed or required for medical reasons: No Advance Directives: No Advance Directives Information Provided: No Nutrition Risks: Recent weight gain service: No Current occupational status: unemployed Cognitive needs: No Hearing needs: No Vision needs: No Physical Exam Exam: Exam: EXAM: Gen: Alert, awake, well appearing, well hydrated. Head: Atraumatic Eyes: Anicteric, Normal conjunctiva. ENT: Moist mucosa, no pallor. Neck: Supple. Skin: No observable rash or bruising on exposed or examined skin Respiratory: Respiratory rate 22, diminished air entry audible secondary to habitus. Posterior bases with possible mild expiratory cardiac wheeze. Cardiovascular: Regular rate and rhythm. No murmurs or rub. Well perfused periphery, warm extremities. 3+ pitting edema to the knees. 2+ pitting edema to the abdominal wall Abdominal: No focal tenderness. Soft, no objective distension. No palpable masses or obvious organomegaly. No guarding, no rebound tenderness or other peritoneal findings. : No flank tenderness. Neuro: Alert. Gross movement of all extremities intact. Psych: Calm. Cooperative. MSK: No grossly visible deformity. Vital signs: See flowsheet Vital Signs: Vital Signs: Last Vital Signs Temp 97.6 F 04/17/25 11:43 Pulse 75 04/17/25 11:43 Resp 22 H 04/17/25 11:43 BP 145/74 H 04/17/25 11:43 Pulse Ox 96 04/17/25 11:43 O2 Del Method Room Air 04/17/25 11:43 BMI result Body Mass Index 52.3 Course Course Course Narrative: This is an RME: Additional HPI, ROS, PE not included below will be deferred to primary provider. RME assessment and note performed by: Emmanuelle Blue PA-C This is a 49-year-old male, with a past medical history of cardiomyopathy, CHF, hypertension, who presents to the emergency room with complaints of chest pain, shortness of breath for the last week. Patient states that he has been without his medications for 1 month. Lungs are diminished. Blood pressure elevated at 225/120. Plan: Labs, EKG, CXR Reevaluation(s) Reevaluation #1: 6:04 PM 04/16/2025 (Dr. Jerry Rosales): BP improved 184/96. Hospitalist accepts for admission. Patient diuresing appropriately now status post 3 L of urine output. Medications Administered Generic Name Dose Route Start Last Admin Trade Name Freq PRN Reason Stop Dose Admin Atorvastatin Calcium 40 mg 04/17/25 09:00 04/17/25 08:35 Atorvastatin Calcium 40 Mg Tablet PO 40 mg DAILY ANTHONY Administration Carvedilol 12.5 mg 04/17/25 09:00 04/17/25 09:54 Carvedilol 12.5 Mg Tablet PO 12.5 mg BID ANTHONY Administration Protocol Enoxaparin Sodium 40 mg 04/16/25 21:00 04/17/25 08:37 Enoxaparin Sodium 40 Mg/0.4 Ml Syringe SUBCUT 40 mg Q12H ANTHONY Administration Furosemide 200 mg/ Sodium 100 mls @ 1 mls/hr 04/16/25 22:00 04/16/25 22:02 Chloride IVCONT 2 mg/hr .Q24H ANTHONY 1 mls/hr 2 MG/HR Administration Labetalol HCl 10 mg 04/16/25 23:00 04/16/25 21:14 Labetalol Hcl 100 Mg/20 Ml Vial IVPUSH 10 mg Q3H PRN Administration SBP > 170 Losartan Potassium 50 mg 04/17/25 09:00 04/17/25 08:34 Losartan Potassium 50 Mg Tablet PO 50 mg DAILY ANTHONY Administration Protocol Nitroglycerin 1 inch 04/16/25 19:40 04/17/25 08:36 Nitroglycerin 2 % Oint 1 Gm Packet TRANSDERMA 1 inch BID@0900,1500 ANTHONY Administration Sodium Chloride 3 ml 04/17/25 00:00 04/17/25 08:38 0.9 % Sodium Chloride Flush 3 Ml Syringe IVFLUSH Not Given QSHIFT ANTHONY Spironolactone 25 mg 04/17/25 09:00 04/17/25 08:35 Spironolactone 25 Mg Tablet PO 25 mg DAILY ANTHONY Administration Protocol Vitamin D 50 mcg 04/17/25 09:00 04/17/25 08:34 Cholecalciferol (Vitamin D3) 25 Mcg Tablet PO 50 mcg DAILY ANTHONY Administration Discontinued Medications Generic Name Dose Route Start Last Admin Trade Name Oscar PRN Reason Stop Dose Admin Carvedilol 6.25 mg 04/16/25 16:52 04/16/25 17:59 Carvedilol 6.25 Mg Tablet PO 04/16/25 16:53 6.25 mg ONCE ONE Administration Protocol Enalaprilat 1.25 mg 04/16/25 15:18 04/16/25 15:37 Enalaprilat Dihydrate 1.25 Mg/Ml Vial IVPUSH 04/16/25 15:19 1.25 mg ONCE ONE Administration Protocol Furosemide 60 mg 04/16/25 15:18 04/16/25 15:37 Furosemide 100 Mg/10 Ml Vial IVPUSH 04/16/25 15:19 60 mg ONCE ONE Administration Protocol Losartan Potassium 50 mg 04/16/25 16:52 04/16/25 17:09 Losartan Potassium 50 Mg Tablet PO 04/16/25 16:53 50 mg ONCE ONE Administration Protocol Nitroglycerin 0.4 mg 04/16/25 17:34 04/16/25 17:42 Nitroglycerin 0.4 Mg Tab.Subl SUBLINGUAL 04/16/25 17:35 0.4 mg ONCE ONE Administration Medical Decision Making Medical Decision Making MDM Narrative: Medical Decision Makin-year-old male with nonischemic cardiomyopathy. He is treated chronically for chronic systolic heart failure. The patient appears profoundly overloaded but not distressed or hypoxic. Severe but stable cardiomegaly on x-ray without effusions. He has significant pitting edema to the abdominal wall and lower legs. He is afebrile and does not have any obvious clinical signs of infection. Doubt DVT. Doubt cellulitis lower extremity swelling likely secondary to fluid retention. All this probably secondary to medication nonadherence from insurance issue. No chest pain. Plan for a blood pressure control though no anginal symptoms this is likely hypertensive urgency with fluid overload. Preliminary Favored Differential Diagnosis: fluid overload, kidney failure, decompensated HFrEF, electrolyte derangement, low albumin, pulmonary edemaamong additional considered etiologies Testing Interpreted Independently: ECG sinus rhythm rate 91 QTC less than 500. No acute ischemic changes. Similar to previous in our system Chest x-ray with massive cardiomegaly consistent with previous no effusions Radiology or Lab testing Results Reviewed: ?See below for details Consults: ?See below for details Independent Historians/External Chart Reviews: ?See below for details Social Determinants of Health Impacting MDM/Planning: ?See below for details Consult Healthcare Provider Management of the patient was discussed with: Hospitalist Lab Data MDM Lab Attestation statement: I reviewed the patient's lab results. 04/17/25 06:59 04/17/25 06:59 Labs: Lab Results 04/16/25 04/16/25 Range/Units 14:48 16:57 WBC 8.5 (4.8-10.8) X10*3/uL RBC 4.36 L (4.60-5.80) X10*6/uL Hgb 12.2 L (14.0-18.0) g/dl Hct 37.4 L (42.0-52.0) % MCV 85.8 (80.0-98.0) fL MCH 28.0 (27.0-33.0) pg MCHC 32.6 (31.0-36.0) g/dl RDW 14.0 (11.0-16.0) % Plt Count 225 (160-400) X10*3/uL MPV 10.4 (9.4-12.4) fL Immature Gran % (Auto) 0.4 (0.0-0.4) % Neut % (Auto) 79.2 H (45-73) % Lymph % (Auto) 14.8 L (20-40) % [place] % (Auto) 4.5 (2-11) % Eos % (Auto) 0.9 (0-4) % Baso % (Auto) 0.2 (0-2) % Lymph # (Auto) 1.3 (1.2-4.9) X10*3/uL [place] # (Auto) 0.4 (0.1-1.2) X10*3/uL Eos # (Auto) 0.1 (0.0-0.4) X10*3/uL Baso # (Auto) 0.0 (0.0-0.2) X10*3/uL Abs Immat Gran (auto) 0.03 (0.00-0.03) X10*3/uL Absolute Neuts (auto) 6.7 (2.0-8.3) x10*3/uL Absolute Nucleated RBC 0.000 (0.0-0.012) X10*3/uL Nucleated RBC % (auto) 0.0 (0.0-0.2) /100WBC Sodium 144 (135-145) mmol/L Potassium 3.5 (3.3-5.1) mmol/L Chloride 110 H (96-108) mmol/L Carbon Dioxide 27 (22-29) mmol/L Anion Gap 11 L (12-20) BUN 11 (9-16) mg/dL Creatinine 0.88 (0.5-1.4) mg/dL Estim Creat Clear Calc 146.9 Estimated GFR > 60 Random Glucose 99 (60-115) mg/dL Calcium 8.6 (8.4-10.2) mg/dL Magnesium 2.2 (1.6-2.6) mg/dL Total Bilirubin 1.0 (0.0-1.0) mg/dL Direct Bilirubin 0.4 (0.0-0.5) mg/dL AST 22 (5-37) U/L ALT 24 (0-40) U/L Alkaline Phosphatase 90 (39-117) U/L Troponin I High Sens 12.2 D (<3.5-35.0) ng/L NT-Pro-B Natriuret Pep 2963.0 H (<300) pg/mL Total Protein 6.5 (6.5-8.0) g/dL Albumin 3.8 (3.5-5.0) g/dL TSH 1.43 (0.32-4.0) uIU/mL Urine Color Yellow Urine Appearance Clear Urine pH 7.5 (5.0-9.0) Ur Specific [place] <= 1.005 (1.005-1.025) Urine Protein Negative (Neg-Trace) mg/dL Urine Glucose (UA) Negative (Negative) mg/dL Urine Ketones Negative (Negative) mg/dL Urine Blood Negative (Negative) Urine Nitrite Negative (Negative) Ur Leukocyte Esterase Negative (Negative) COVID-19 (FRANCOIS) Negative (Negative) COVID-19 Clin Com See Note Influenza Type A (ORI) Negative (Negative) Influenza Type B (ORI) Negative (Negative) Influenza A & B Note See Note Social Determinants Patient?s care significantly limited by Social Determinants of Health including: Problems related to employment and Other Social Determinant of Health ( compromised insurance status inability to adequately adhere with medications) Critical Care Time Critical Care Time Critical Care Time: Yes Total Critical Care Time: 70 Attestation: ED Critical Care: severe decompensated HFrEF requiring intravenous antihypertensives and diuretic Authorized and Performed by: Jerry Rosales MD Total critical care time: Approximately 70 min Due to a high probability of clinically significant, life threatening deterioration, the patient required my highest level of preparedness to intervene emergently and I personally spent this critical care time directly and personally managing the patient. This critical care time included obtaining a history; examining the patient; pulse oximetry; ordering and review of studies; arranging urgent treatment with development of a management plan; evaluation of patient's response to treatment; frequent reassessment; and, discussions with other providers. This critical care time was performed to assess and manage the high probability of imminent, life-threatening deterioration that could result in multi-organ failure. It was exclusive of separately billable procedures and treating other patients and teaching time. Discharge Plan Discharge Clinical Impression: CHF (congestive heart failure) Patient Disposition: Admitted As Inpatient
[2025-04-16 14:56] LABS: MANUAL DIFF FLAG NO
[2025-04-16 14:57] LABS: Hematocrit 37.4 % (42.0-52.0); Hemoglobin 12.2 g/dl (14.0-18.0); Imm Gran Abs Auto 0.03 X10*3/uL (0.00-0.03); Imm Gran Pct Auto 0.4 % (0.0-0.4); Lymphocytes Absolute Auto 1.3 X10*3/uL (1.2-4.9); Mean Corpuscular HGB Conc 32.6 g/dl (31.0-36.0); Mean Corpuscular Hemoglobin 28.0 pg (27.0-33.0); Mean Corpuscular Volume 85.8 fL (80.0-98.0); NRBC Abs Auto 0.000 X10*3/uL (0.0-0.012); NRBC Pct Auto 0.0 /100WBC (0.0-0.2); Platelet Count 225 X10*3/uL (160-400); Red Blood Count 4.36 X10*6/uL (4.60-5.80); White Blood Count 8.5 X10*3/uL (4.8-10.8)
[2025-04-16 15:17] LABS: Alanine Aminotransferase 24 U/L (0-40); Albumin Level 3.8 g/dL (3.5-5.0); Alkaline Phosphatase 90 U/L (39-117); Anion Gap 11 (12-20); Aspartate Amino Transferase 22 U/L (5-37); Blood Urea Nitrogen 11 mg/dL (9-16); Calcium 8.6 mg/dL (8.4-10.2); Carbon Dioxide 27 mmol/L (22-29); Chloride 110 mmol/L (96-108); Creatinine Clr Calc Pharmacy 146.9; Estimated Glomerular Filt Rate > 60; Magnesium 2.2 mg/dL (1.6-2.6); Potassium 3.5 mmol/L (3.3-5.1); Sodium 144 mmol/L (135-145); Total Protein 6.5 g/dL (6.5-8.0)
[2025-04-16 15:23] LABS: COVID-19 Test Negative (Negative); IDNOW Serial# 152EDE1D; IDNOW Serial# 55D5AD1C; Influenza B2 Negative (Negative)
[2025-04-16 15:25] LABS: NT Pro B Type Natriuretic Pept 2963.0 pg/mL (<300); Troponin-I High Sensitivity 12.2 ng/L (<3.5-35.0)
[2025-04-16] MEDS: Furosemide 100 MG/10 ML VIAL 60 MG IVPUSH (15:37)
--- NOTE | 2025-04-16 17:09 | PC.NURSE ---
Coreg requested from pharmacy. BP remains elevated despite medication administration. Voided 1L urine, clear/light yellow in color. UA sent for analysis, results pending.
[2025-04-16 17:13] LABS: Appearance Urine Clear; Glucose Urine UA Negative (Negative); PH 7.5 (5.0-9.0); Specific Gravity - Urine <= 1.005 (1.005-1.025)
--- NOTE | 2025-04-16 17:46 | PC.NURSE ---
Out of bed to bathroom, bowel movement. Continue to await Coreg, reached out to pharmacy regarding delay. Other medications administered as ordered for elevated BP.
--- NOTE | 2025-04-16 19:45 | P.HPHOSP_ITS ---
History of Present Illness Date of Service: 04/16/25 Attending physician on admission: Yasemin Croft Chief Complaint: shortness of breath Sudarshan De León is a 49 years old man with past medical history significant for HFpEF, essential hypertension, hyperlipidemia and morbid obesity presents to the emergency department complaining of shortness on breath with exertion over the last couple of weeks associated with edema to the lower extremities, abdominal distention and dry cough. He also complained of some chest discomfort. He denied any headache, palpitations, dizziness, nausea, vomiting, diarrhea, fever or chills. He denied any problems with urination. He said that he has not been taking his home medication over the last month due to insurance issues. He denied current tobacco smoking, alcohol abuse or illicit drug use. In the ED, he was found to have significant elevated blood pressure. Last blood pressure is 205/105. There is also some tachypnea. Oxygen saturation is 96 on room air and temperature is 98.2 degrees. Blood workup showed no leukocytosis. Hemoglobin is 12.3 and platelets are normal. There are no significant electrolyte imbalances. BUN is 11 and creatinine 0.88. LFTs are normal. Troponin is 12.2 and proBNP is 2963. Albumin and total proteins are normal. Urinalysis is negative. Influenza and COVID-19 are negative. CXR showed cardiomegaly and no acute cardiopulmonary abnormalities. ECG showed normal sinus rhythm with nonspecific ST changes. ED tx: Lasix 60 mg IV, Vasotec 1.25 mg IV, losartan 50 mg p.o., carvedilol 6.25 mg p.o., nitroglycerin 0.4 mg sublingual Review of Systems 2 Review of Systems: All 12 systems were reviewed and normal except as noted in HPI. [facility], [facility] Medical History Morbid obesity CHF (congestive heart failure) Cardiomyopathy Obesity Diverticulitis Family History Father Coronary artery disease CKD (chronic kidney disease) Mother HTN (hypertension) Anxiety Sister Heart disease Other Colon cancer Surgical History No pertinent past surgical history Social History Household Members: Significant Other Housing: Apartment Do you presently have visiting nurse or other home services: No Alcohol intake: former Patient Tobacco Use Status: Former Tobacco user Years Smoked: 20 +/- e-Cigarette/Vaping Use: Never Used Second Hand Smoke Exposure: No Advance Directives: No Advance Directives Information Provided: No service: No Current occupational status: unemployed Cognitive needs: No Hearing needs: No Vision needs: No Meds Allergies Allergy/AdvReac Type Severity Reaction Status Date / Time No Known Allergies (No Known Allergy Verified 04/16/25 14:30 Allergies*) Active Medications: Current Medications Acetaminophen (Acetaminophen 325 Mg Tablet) 650 mg PO Q6H PRN PRN Reason: Pain, Mild 1-3,fever,headache Calcium Carbonate (Calcium Carbonate 750 Mg Tab.Chew) 750 mg PO Q4H PRN PRN Reason: Heartburn Carvedilol (Carvedilol 12.5 Mg Tablet) 12.5 mg PO BID ANTHONY; Protocol Enoxaparin Sodium (Enoxaparin Sodium 40 Mg/0.4 Ml Syringe) 40 mg SUBCUT Q12H ANTHONY Furosemide 200 mg/ Sodium (Chloride) 100 mls @ 1 mls/hr IVCONT .Q24H ANTHONY Losartan Potassium (Losartan Potassium 50 Mg Tablet) 50 mg PO DAILY ANTHONY; Protocol Magnesium Hydroxide (Milk Of Magnesia 30 Ml Oral.Susp) 30 ml PO DAILY PRN PRN Reason: Constipation Melatonin (Melatonin 3 Mg Tablet) 6 mg PO BEDTIME PRN PRN Reason: Insomnia Nitroglycerin (Nitroglycerin 2 % Oint 1 Gm Packet) 1 inch TRANSDERMA BID@0900,1500 ANTHONY Sodium Chloride (0.9 % Sodium Chloride Flush 3 Ml Syringe) 3 ml IVFLUSH QSHIFT ANTHONY Spironolactone (Spironolactone 25 Mg Tablet) 25 mg PO DAILY ANTHONY; Protocol Physical Exam 2 Vital Signs and Narrative: Vital Signs: Last Vital Signs Temp 98.2 F 04/16/25 18:31 Pulse 84 04/16/25 18:31 Resp 25 H 04/16/25 18:31 BP 205/102 H 04/16/25 18:31 Pulse Ox 96 04/16/25 18:31 O2 Del Method Room Air 04/16/25 18:31 BMI result Body Mass Index 52.3 Constitutional - Awake and Alert, No apparent distress. Pleasant. Cooperative. Obese. HEENT - PERRLA, EOMI Mejía - RRR, No edema Lungs - Normal lung expansion, Normal respiratory effort, No respiratory distress. Tachypnea. Decreased breath sound at bases. No rhonchi, crackles or wheezing. Abdomen - NT / ND; +BS; No rebound or guarding Extremities - marked pitting edema up to the thighs bilaterally, there is erythema noted over the lower thirds. No wounds. Musculoskeletal - Normal inspection, normal ROM Skin - Warm/Dry Neurological - Alert & oriented x3. Moving all extremities spontaneously. Normal gait. Normal speech. Psychological - Appropriate affect Results Labs 04/16/25 14:48 04/16/25 14:48 Labs: Laboratory Results - last 24 hr 04/16/25 04/16/25 14:48 16:57 MCV 85.8 MCH 28.0 MCHC 32.6 RDW 14.0 Plt Count 225 MPV 10.4 Immature Gran % (Auto) 0.4 Neut % (Auto) 79.2 H Lymph % (Auto) 14.8 L Levy % (Auto) 4.5 Eos % (Auto) 0.9 Baso % (Auto) 0.2 Lymph # (Auto) 1.3 Levy # (Auto) 0.4 Eos # (Auto) 0.1 Baso # (Auto) 0.0 Abs Immat Gran (auto) 0.03 Absolute Neuts (auto) 6.7 Absolute Nucleated RBC 0.000 Nucleated RBC % (auto) 0.0 Anion Gap 11 L Estim Creat Clear Calc 146.9 Estimated GFR > 60 Random Glucose 99 Calcium 8.6 Magnesium 2.2 Total Bilirubin 1.0 Direct Bilirubin 0.4 AST 22 ALT 24 Alkaline Phosphatase 90 Troponin I High Sens 12.2 D NT-Pro-B Natriuret Pep 2963.0 H Total Protein 6.5 Albumin 3.8 Urine Color Yellow Urine Appearance Clear Urine pH 7.5 Ur Specific [place] <= 1.005 Urine Protein Negative Urine Glucose (UA) Negative Urine Ketones Negative Urine Blood Negative Urine Nitrite Negative Ur Leukocyte Esterase Negative COVID-19 (FRANCOIS) Negative COVID-19 Clin Com See Note Influenza Type A (ORI) Negative Influenza Type B (ORI) Negative Influenza A & B Note See Note Imaging Radiologist's Impressions: Impressions Chest X-Ray 04/16/25 14:55 IMPRESSION: Cardiomegaly. No acute cardiopulmonary abnormality. Electronically signed by: Ashu Betancourt MD 04/16/2025 03:04 PM EDT RP Assessment and Plan (1) Acute on chronic diastolic CHF (congestive heart failure): Status: Acute (2) Hypertensive emergency: Status: Acute Plan Sudarshan De León is a 49 y/o man who has not been taking home meds over the last month presents to the ED with: Anasarca due to acute on chronic diastolic congestive heart failure. TTE May 2022 EF 55-60%. Telemetry. Pulse oximetry. Supplemental O2 to keep O2 sats > 90%. Start Lasix IV infusion. Nitroglycerin ointment 1 in b.i.d.. Continue ARB, beta blockers and spironolactone. Check TTE in the morning. I&O. Daily weight. Low-salt diet. Recheck pro BNP in 2 days. Hypertensive emergency in the setting of acute CHF. Continue air abuse, carvedilol, nitroglycerin ointment Lasix IV infusion. Labetalol IV as needed. We will continue to monitor blood pressure closely. If no significant improvement we will consider transfer to the ICU for IV infusion with anti-HTN meds. Hyperlipidemia. Continue statin. Check lipid panel. Essential hypertension. Continue Coreg and ARB. Morbid obesity. BMI 52.3 kg/m2. Lifestyle changes. Weight loss encouraged. Code status: Full DVT prophylaxis: Lovenox Patient will need hospitalization for at least 2 midnights for anasarca with acute CHF and hypertensive emergency treatment with IV diuresis and antihypertensive meds; requiring cardiac and VS monitoring. Quality Stroke Does the patient have a stroke diagnosis?: No VTE Prior VTE?: No VTE Risk Level:: Medical - moderate - high VTE Device Contraindication: Treatment Not Indicated VTE Drug Contraindication: N/A - Med Ordered
--- NOTE | 2025-04-16 20:00 | PHA.MEDREC ---
Addendum entered by Ethan Mark, formerly [facility] 04/16/25 20:06: med rec reviewed Original Note: Pharmacy Consult ? Medication Reconciliation Pharmacy has completed the medication reconciliation. Patient had all his medication bottles with him, however they are all empty. Patient states he has been out of his medications and not taken anything for a month. all his bottles are dated from Apr 2024. Could not confirm resent claim history.
[2025-04-16] MEDS: Nitroglycerin 2 % Oint 1 GM Packet 1 INCH TRANSDERMA (20:20)
[2025-04-16 20:21] LABS: Thyroid Stimulating Hormone 1.43 uIU/mL (0.32-4.0)
[2025-04-16 20:49] LABS: Troponin-I High Sensitivity 17.5 ng/L (<3.5-35.0)
[2025-04-16] MEDS: Furosemide 200 MG in 0.9 % Sodium Chloride 80 ML IVCONT (22:02)
--- NOTE | 2025-04-16 23:13 | PC.NURSE ---
Took over care from ROMMEL Mckinnon at 23:00
--- NOTE | 2025-04-16 23:42 | PC.NURSE ---
pt resting in bed, no sign of distress at this time.
[2025-04-17] VITALS (14 sets, daily range): BP systolic 129–188; BP diastolic 65–100; PULSE 74–85; RESP 18–28; TEMP 36.4–36.7; O2SAT 94–98
--- NOTE | 2025-04-17 02:12 | PC.NURSE ---
pt oob to rest room with a steady gait.
--- NOTE | 2025-04-17 03:56 | PC.NURSE ---
pt sleeping at this time.
--- NOTE | 2025-04-17 06:39 | PC.NURSE ---
oob to bathroom.
--- NOTE | 2025-04-17 07:00 | CA_ITS ---
Transthoracic Echocardiogram Patient (Last, First, Middle): Sudarshan Doherty J Gender: M Date of : 1975 Age: 49 Procedure Date: 04/17/2025 Procedure Type: Transthoracic Echocardiogram [place] [facility] [place]: 172.72 cm Weight: 155.58 kg BSA: 2.57 m2 Heart Rate: bpm BP: 153 / 76 mmHg Hardscape Foreman: Referring MD: Yasemin Croft MD Symptoms: Acute CHF, anasarca Study Quality: Technically Difficult due to obesity ECG Rhythm: Sinus Conclusions: - The left ventricular systolic function is severely decreased. The calculated ejection fraction is 29% by biplane method. - Evidence suggests grade III (severe) diastolic dysfunction. - No obvious valvular pathology seen on this study. Findings Procedure Information Contrast agent, definity, is being given per protocol without apparent complications. Left Ventricle Mildly increased left ventricular cavity size. There is moderately increased left ventricular wall thickness. The left ventricular systolic function is severely decreased. The calculated ejection fraction is 29% by biplane method. There is severe global hypokinesis. Evidence suggests grade III (severe) diastolic dysfunction. Right Ventricle Normal right ventricular cavity size. There is mildly decreased right ventricular systolic function. Atria The left atrium is mildly dilated. The right atrium is normal in size. Aortic Valve The aortic valve was not well visualized. There is no aortic valve stenosis. There is no aortic valve regurgitation. Mitral Valve The mitral valve appears normal. There is trace mitral valve regurgitation. There is no mitral valve stenosis. Pulmonic Valve The pulmonic valve is likely normal. Tricuspid Valve There is trace tricuspid valve regurgitation. There is no evidence of pulmonary hypertension. Great Vessels The asc aorta is normal in size. Venous The inferior vena cava is mildly dilated and collapses less than 50% with inspiration. Pericardium/Pleural There is no evidence of pericardial effusion. Prior Study Comparison Changes noted compared to prior study dated: 05/24/2022. Decrease in LVEF. Recommendations, Care & Conclusions No obvious valvular pathology seen on this study. Measurements 2D Linear Measurements IVSd: 1.41 0.6-0.9/0.6-1.0 cm LVIDd: 5.91 3.9-5.3/4.2-5.9 cm LVIDd Index: 2.30 2.4-3.2/2.2-3.1 cm/m2 LVIDs: 5.15 2.0-3.6 cm LVPWd: 1.43 0.7-1.1 cm Ao Root: 2.80 2.1-3.5 cm LA Diam: 5.50 2.7-3.8/3.0-4.0 cm LAIDs Index: 2.14 1.5-2.3 cm/m2 LV Mass: 482.04 67-162/88-224 g LV Mass Index: 187.56 43-95/49-115 g/m2 LVOT Diam: 2.60 3.0+(-)1.3 cm 2D Systolic Function EF 4C: 25.60 >55% EF 2C: 32.20 >55% EF BiP: 28.50 >55% Mitral Valve MV VTI: 0.29 MV Pk Bradley: 1.25 MV Mn Bradley: 0.57 MV Pk Grad: 6.00 MV Mn Grad: 2.00 MV Pk E: 1.03 MV Decel Time: 163.00 E'Lateral: 5.98 E'Medial: 3.81 E/E' Med: 27.00 E/E' Lat: 17.20 PHT: 48.00 MVA PHT: 4.58 MVA Continuity: 2.50 Decel [place]: 6.32 Aortic Valve AoV Pk Bradley: 0.97 AoV Mn Bradley: 0.67 AoV VTI: 0.19 AoV Pk Grad: 4.00 Aov Mn Grad: 2.00 BONINE Cont.VTI: 3.78 LVOT LVOT Pk Bradley: 0.70 LVOT Mn Bradley: 0.49 LVOT VTI: 0.14 LVOT Pk Grad: 2.00 LVOT Mn Grad: 1.00 LVOT Diam: 2.60 LVOT Area: 5.31 Diastolic Function MV Pk E: 1.03 E'Medial: 3.81 E/E' Med: 27.00 E' Laterial: 5.98 E/E' Lat: 17.20 Right Ventricle TVS' Bradley: 9.00 Tricuspid Valve TR Pk Bradley: 2.00 TR Pk Grad: 16.00 RA Press: 15.00 RVSP: 31.00 Great Vessels Aorta Ao Root-2D: 2.80 2.0-3.7 cm Ao Asc: 2.80 2.1-3.4 cm Pulmonary Valve PV Pk Bradley: 0.61 Peak PV Grad: 1.00 Updated in Other Vendor System with Status of Final Navid Sarkar MD electronically signed on 04/18/2025 8:41:43 AM with status of Final
[2025-04-17 07:13] LABS: Hematocrit 38.1 % (42.0-52.0); Hemoglobin 12.2 g/dl (14.0-18.0); Mean Corpuscular HGB Conc 32.0 g/dl (31.0-36.0); Mean Corpuscular Hemoglobin 27.4 pg (27.0-33.0); Mean Corpuscular Volume 85.4 fL (80.0-98.0); NRBC Abs Auto 0.000 X10*3/uL (0.0-0.012); NRBC Pct Auto 0.0 /100WBC (0.0-0.2); Platelet Count 245 X10*3/uL (160-400); Red Blood Count 4.46 X10*6/uL (4.60-5.80); White Blood Count 8.0 X10*3/uL (4.8-10.8)
[2025-04-17 07:27] LABS: Anion Gap 14 (12-20); Blood Urea Nitrogen 10 mg/dL (9-16); Calcium 8.6 mg/dL (8.4-10.2); Carbon Dioxide 28 mmol/L (22-29); Chloride 108 mmol/L (96-108); Creatinine Clr Calc Pharmacy 136.1; Estimated Glomerular Filt Rate > 60; Magnesium 2.2 mg/dL (1.6-2.6); Potassium 3.6 mmol/L (3.3-5.1); Sodium 146 mmol/L (135-145)
[2025-04-17 08:07] LABS: Hemoglobin A1C 116.3021 umol/L; Total Hemoglobin (HGBA1C) 3169.6612 umol/L
--- NOTE | 2025-04-17 08:35 | HO.PM.IMPN ---
Subjective Subjective Date of Service: 04/17/25 Interval History: Reports significant improvement in SOB/HORTON since [place] Pt reportedly had no meds for months 2/2 insurance issues Review of Systems Review of Systems: Yes all other systems are reviewed and are negative Physical Exam Exam: Exam: General: AOx3, morbid obesity Resp: CTA bilaterally, limited 2/2 body habitus CVS: S1, S2, RRR , limited 2/2 body habitus GI: +BS, NT, no distention Neuro: Motor grossly intact bilaterally Extremities: 2 + pitting pedal edema upto knees Psych: Appropriate affect Vital Signs: Vital Signs: Last Vital Signs Temp 97.9 F 04/17/25 08:33 Pulse 79 04/17/25 08:33 Resp 20 04/17/25 08:33 BP 159/83 H 04/17/25 08:33 Pulse Ox 95 04/17/25 08:33 O2 Del Method Room Air 04/17/25 08:33 BMI result Body Mass Index 52.3 Objective Data Active Medications Acetaminophen (Acetaminophen 325 Mg Tablet) 650 mg PO Q6H PRN PRN Reason: Pain, Mild 1-3,fever,headache Atorvastatin Calcium (Atorvastatin Calcium 40 Mg Tablet) 40 mg PO DAILY [facility] Calcium Carbonate (Calcium Carbonate 750 Mg Tab.Chew) 750 mg PO Q4H PRN PRN Reason: Heartburn Carvedilol (Carvedilol 12.5 Mg Tablet) 12.5 mg PO BID [facility]; Protocol Enoxaparin Sodium (Enoxaparin Sodium 40 Mg/0.4 Ml Syringe) 40 mg SUBCUT Q12H [facility] Last Admin: 04/16/25 20:19 Dose: 40 mg Documented By: LORENA Hydroxyzine HCl (Hydroxyzine Hcl 25 Mg Tablet) 25 mg PO BID PRN PRN Reason: Anxiety Furosemide 200 mg/ Sodium (Chloride) 100 mls @ 1 mls/hr IVCONT .Q24H [facility] Last Admin: 04/16/25 22:02 Dose: 2 mg/hr, 1 mls/hr Documented By: LORENA Labetalol HCl (Labetalol Hcl 100 Mg/20 Ml Vial) 10 mg IVPUSH Q3H PRN PRN Reason: SBP > 170 Last Admin: 04/16/25 21:14 Dose: 10 mg Documented By: LORENA Losartan Potassium (Losartan Potassium 50 Mg Tablet) 50 mg PO DAILY [facility]; Protocol Magnesium Hydroxide (Milk Of Magnesia 30 Ml Oral.Susp) 30 ml PO DAILY PRN PRN Reason: Constipation Melatonin (Melatonin 3 Mg Tablet) 6 mg PO BEDTIME PRN PRN Reason: Insomnia Nitroglycerin (Nitroglycerin 2 % Oint 1 Gm Packet) 1 inch TRANSDERMA BID@0900,1500 [facility] Last Admin: 04/16/25 20:20 Dose: 1 inch Documented By: LORENA Sodium Chloride (0.9 % Sodium Chloride Flush 3 Ml Syringe) 3 ml IVFLUSH QSHIFT [facility] Last Admin: 04/17/25 02:30 Dose: Not Given Documented By: HARINDER Non-Admin Reason: IV Running Spironolactone (Spironolactone 25 Mg Tablet) 25 mg PO DAILY [facility]; Protocol Vitamin D (Cholecalciferol (Vitamin D3) 25 Mcg Tablet) 50 mcg PO DAILY [facility] Labs 04/17/25 06:59 04/17/25 06:59 Labs: Laboratory Results - last 24 hr 04/16/25 04/16/25 04/16/25 14:48 16:57 20:23 MCV 85.8 MCH 28.0 MCHC 32.6 RDW 14.0 Plt Count 225 MPV 10.4 Immature Gran % (Auto) 0.4 Neut % (Auto) 79.2 H Lymph % (Auto) 14.8 L [place] % (Auto) 4.5 Eos % (Auto) 0.9 Baso % (Auto) 0.2 Lymph # (Auto) 1.3 Clay # (Auto) 0.4 Eos # (Auto) 0.1 Baso # (Auto) 0.0 Abs Immat Gran (auto) 0.03 Absolute Neuts (auto) 6.7 Absolute Nucleated RBC 0.000 Nucleated RBC % (auto) 0.0 Anion Gap 11 L Estim Creat Clear Calc 146.9 Estimated GFR > 60 Random Glucose 99 Estimat Average Glucose Hemoglobin A1c % Calcium 8.6 Magnesium 2.2 Total Bilirubin 1.0 Direct Bilirubin 0.4 AST 22 ALT 24 Alkaline Phosphatase 90 Troponin I High Sens 12.2 D 17.5 NT-Pro-B Natriuret Pep 2963.0 H Total Protein 6.5 Albumin 3.8 TSH 1.43 Urine Color Yellow Urine Appearance Clear Urine pH 7.5 Ur Specific [place] <= 1.005 Urine Protein Negative Urine Glucose (UA) Negative Urine Ketones Negative Urine Blood Negative Urine Nitrite Negative Ur Leukocyte Esterase Negative COVID-19 (FRANCOIS) Negative COVID-19 Clin Com See Note Influenza Type A (ORI) Negative Influenza Type B (ORI) Negative Influenza A & B Note See Note 04/17/25 06:59 MCV 85.4 MCH 27.4 MCHC 32.0 RDW 14.0 Plt Count 245 MPV 10.5 Immature Gran % (Auto) Neut % (Auto) Lymph % (Auto) [place] % (Auto) Eos % (Auto) Baso % (Auto) Lymph # (Auto) [place] # (Auto) Eos # (Auto) Baso # (Auto) Abs Immat Gran (auto) Absolute Neuts (auto) Absolute Nucleated RBC 0.000 Nucleated RBC % (auto) 0.0 Anion Gap 14 Estim Creat Clear Calc 136.1 Estimated GFR > 60 Random Glucose 112 Estimat Average Glucose 111 Hemoglobin A1c % 5.5 Calcium 8.6 Magnesium 2.2 Total Bilirubin Direct Bilirubin AST ALT Alkaline Phosphatase Troponin I High Sens NT-Pro-B Natriuret Pep Total Protein Albumin TSH Urine Color Urine Appearance Urine pH Ur Specific [place] Urine Protein Urine Glucose (UA) Urine Ketones Urine Blood Urine Nitrite Ur Leukocyte Esterase COVID-19 (FRANCOIS) COVID-19 Clin Com Influenza Type A (ORI) Influenza Type B (ORI) Influenza A & B Note Assessment and Plan (1) Hypertensive emergency: Status: Acute Plan Sudarshan De León is a 49 y/o man with known HFpEF , HTN, Morbid obesity , BMI 52.3 not on any home meds 2/2 insurance issues presented to the ED with SOB/HORTON 2/2 HTNsive urgency and was found to be in decompensated HF 2/2 not being on meds. HTNsive urgency 2/2 A/C decompensated HFpEF Known prior HFpEF HTN - not on home meds - resumed and will be adjusted this admission Resume home meds (which pt has not been taking) and prn IV meds (labetolol and nitro paste bid) to maintain BP TTE ordered Tele Cont diuresis - will switch IV lasix drip to Bumex 1gm BID HF education given Check elec and replete to goal Hyperlipidemia. Continue statin. Check lipid panel. Essential hypertension. Continue Coreg and ARB. Morbid obesity. BMI 52.3 kg/m2. Lifestyle changes. Weight loss encouraged. Code status: Full DVT prophylaxis: Lovenox Patient needs continued hospitalization for at least 2 midnights for anasarca with acute CHF and hypertensive emergency treatment with IV diuresis and antihypertensive meds; requiring cardiac and VS monitoring. Quality Stroke Does the patient have a stroke diagnosis?: No VTE Prior VTE?: No VTE Risk Level:: Medical - moderate - high VTE Device Contraindication: Treatment Not Indicated VTE Drug Contraindication: N/A - Med Ordered
[2025-04-17] MEDS: Nitroglycerin 2 % Oint 1 GM Packet 1 INCH TRANSDERMA ×2 (08:36→14:36)
--- NOTE | 2025-04-17 09:48 | MHC.CM.PN ---
CM met with Patient at bedside, in the ED. Patient lives in an apartment with his Girlfriend who will transport at dc. Patient is independent and home self care is his goal. CM has initiated and will follow for dc planning. Patient is listed as, self pay; an email referral was made to [facility] this morning.
--- NOTE | 2025-04-17 10:21 | PC.NURSE ---
Pt in no acute distress. Alert and oriented, denying pain or other complaints. Lasix infusing per SEP. Pt took his morning meds with no issues. Ambulated to bathroom with steady gait. Denying new complaints. plan of care ongoing
--- NOTE | 2025-04-17 14:04 | PC.NURSE ---
lasix drip d/c per MAR/order
[2025-04-17] MEDS: Sacubitril/Valsartan 49/51 1 TAB TABLET PO ×2 (14:35→20:10)
--- NOTE | 2025-04-17 15:19 | HO.NURTONUR ---
NINOSKA MD: 49 years old man with past medical history significant for HFpEF, essential hypertension, hyperlipidemia and morbid obesity presents to the emergency department complaining of shortness on breath with exertion over the last couple of weeks associated with edema to the lower extremities, abdominal distention and dry cough. He also complained of some chest discomfort. He denied any headache, palpitations, dizziness, nausea, vomiting, diarrhea, fever or chills. He denied any problems with urination. He said that he has not been taking his home medication over the last month due to insurance issues. He denied current tobacco smoking, alcohol abuse or illicit drug use. In the ED, he was found to have significant elevated blood pressure. Last blood pressure is 205/105. There is also some tachypnea. Oxygen saturation is 96 on room air and temperature is 98.2 degrees. Blood workup showed no leukocytosis. Hemoglobin is 12.3 and platelets are normal. There are no significant electrolyte imbalances. BUN is 11 and creatinine 0.88. LFTs are normal. Troponin is 12.2 and proBNP is 2963. Albumin and total proteins are normal. Urinalysis is negative. Influenza and COVID-19 are negative. CXR showed cardiomegaly and no acute cardiopulmonary abnormalities. ECG showed normal sinus rhythm with nonspecific ST changes. ED tx: Lasix 60 mg IV, Vasotec 1.25 mg IV, losartan 50 mg p.o., carvedilol 6.25 mg p.o., nitroglycerin 0.4 mg sublingual PER RN: Alert and oriented Ambulatory with steady gait, independent IV: 20 in right AC No meds running at this time, lasix was dc Takes meds whole Cardiac diet Admit: CHF and acute HTN
[2025-04-17] MEDS: 0.9 % Sodium Chloride Flush 3 ML SYRINGE IVFLUSH (17:15)
[2025-04-17 19:35] LABS: Cholesterol 153 mg/dL (<200); HDL Cholesterol 31 mg/dL (>40); Triglycerides 102 mg/dL (<150)
[2025-04-18] VITALS (12 sets, daily range): BP systolic 111–182; BP diastolic 60–98; PULSE 70–87; RESP 16–20; TEMP 36.2–37.4; O2SAT 91–98
[2025-04-18] MEDS: 0.9 % Sodium Chloride Flush 3 ML SYRINGE IVFLUSH ×4 (00:07→21:15)
[2025-04-18 06:34] LABS: MANUAL DIFF FLAG NO
[2025-04-18 06:43] LABS: Hematocrit 39.5 % (42.0-52.0); Hemoglobin 12.9 g/dl (14.0-18.0); Imm Gran Abs Auto 0.02 X10*3/uL (0.00-0.03); Imm Gran Pct Auto 0.3 % (0.0-0.4); Lymphocytes Absolute Auto 1.7 X10*3/uL (1.2-4.9); Mean Corpuscular HGB Conc 32.7 g/dl (31.0-36.0); Mean Corpuscular Hemoglobin 27.5 pg (27.0-33.0); Mean Corpuscular Volume 84.2 fL (80.0-98.0); NRBC Abs Auto 0.000 X10*3/uL (0.0-0.012); NRBC Pct Auto 0.0 /100WBC (0.0-0.2); Platelet Count 242 X10*3/uL (160-400); Red Blood Count 4.69 X10*6/uL (4.60-5.80); White Blood Count 7.6 X10*3/uL (4.8-10.8)
[2025-04-18 06:53] LABS: Alanine Aminotransferase 17 U/L (0-40); Albumin Level 3.5 g/dL (3.5-5.0); Alkaline Phosphatase 85 U/L (39-117); Anion Gap 13 (12-20); Aspartate Amino Transferase 17 U/L (5-37); Blood Urea Nitrogen 12 mg/dL (9-16); Calcium 8.4 mg/dL (8.4-10.2); Carbon Dioxide 27 mmol/L (22-29); Chloride 106 mmol/L (96-108); Creatinine Clr Calc Pharmacy 145.2; Estimated Glomerular Filt Rate > 60; Magnesium 2.0 mg/dL (1.6-2.6); Potassium 3.3 mmol/L (3.3-5.1); Sodium 143 mmol/L (135-145); Total Protein 6.0 g/dL (6.5-8.0)
[2025-04-18 06:57] LABS: NT Pro B Type Natriuretic Pept 1020.9 pg/mL (<300)
--- NOTE | 2025-04-18 07:28 | P.PNIM_ITS ---
Subjective Subjective Date of Service: 04/18/25 Interval History: TTE revealed severe worsening HFrEF likely secondary to medication noncompliance Cardiology consulted-GDM T initiated, we will likely need to be followed by outpatient Cardiology Patient's blood pressure continues to be suboptimally controlled with a SBP ranging in the 150s to 170s Managing his blood pressure meds for a safe discharge Patient reports significant improvement in SOB/HORTON , up titrating his Bumex, adequate diuresis Physical Exam 2 Exam: Exam: Patient's girlfriend was in the room during this encounter General: AOx3, morbid obesity Resp: CTA bilaterally, limited 2/2 body habitus CVS: S1, S2, RRR , limited 2/2 body habitus GI: +BS, NT, no distention Neuro: Motor grossly intact bilaterally Extremities: 1 + pitting pedal edema upto knees, improved from yesterday Psych: Appropriate affect Vital Signs: Vital Signs: Last Vital Signs Temp 98.7 F 04/18/25 04:00 Pulse 77 04/18/25 04:00 Resp 16 04/18/25 04:00 BP 159/79 H 04/18/25 04:00 Pulse Ox 96 04/18/25 04:00 O2 Del Method Room Air 04/18/25 04:00 BMI result Body Mass Index 52.3 Objective Data Active Medications Acetaminophen (Acetaminophen 325 Mg Tablet) 650 mg PO Q6H PRN PRN Reason: Pain, Mild 1-3,fever,headache Atorvastatin Calcium (Atorvastatin Calcium 40 Mg Tablet) 40 mg PO DAILY [facility] Last Admin: 04/17/25 08:35 Dose: 40 mg Documented By: FARIBA Bumetanide (Bumetanide 1 Mg Tablet) 1 mg PO BID@0800,1700 [facility]; Protocol Last Admin: 04/17/25 17:17 Dose: 1 mg Documented By: MICHELLEDONKari Calcium Carbonate (Calcium Carbonate 750 Mg Tab.Chew) 750 mg PO Q4H PRN PRN Reason: Heartburn Carvedilol (Carvedilol 12.5 Mg Tablet) 12.5 mg PO BID [facility]; Protocol Enoxaparin Sodium (Enoxaparin Sodium 40 Mg/0.4 Ml Syringe) 40 mg SUBCUT Q12H [facility] Last Admin: 04/17/25 20:11 Dose: 40 mg Documented By: RANDY Hydroxyzine HCl (Hydroxyzine Hcl 25 Mg Tablet) 25 mg PO BID PRN PRN Reason: Anxiety Labetalol HCl (Labetalol Hcl 100 Mg/20 Ml Vial) 10 mg IVPUSH Q3H PRN PRN Reason: SBP > 170 Last Admin: 04/16/25 21:14 Dose: 10 mg Documented By: LORENA Magnesium Hydroxide (Milk Of Magnesia 30 Ml Oral.Susp) 30 ml PO DAILY PRN PRN Reason: Constipation Melatonin (Melatonin 3 Mg Tablet) 6 mg PO BEDTIME PRN PRN Reason: Insomnia Nitroglycerin (Nitroglycerin 2 % Oint 1 Gm Packet) 1 inch TRANSDERMA BID@0900,1500 [facility] Last Admin: 04/17/25 14:36 Dose: 1 inch Documented By: FARIBA Sacubitril/Valsartan (Sacubitril/Valsartan 49/51 1 Tab Tablet) 1 tab PO BID [facility]; Protocol Last Admin: 04/17/25 20:10 Dose: 1 tab Documented By: RANDY Sodium Chloride (0.9 % Sodium Chloride Flush 3 Ml Syringe) 3 ml IVFLUSH QSHIFT [facility] Last Admin: 04/18/25 00:07 Dose: 3 ml Documented By: RANDY Spironolactone (Spironolactone 25 Mg Tablet) 25 mg PO DAILY [facility]; Protocol Last Admin: 04/17/25 08:35 Dose: 25 mg Documented By: FARIBA Vitamin D (Cholecalciferol (Vitamin D3) 25 Mcg Tablet) 50 mcg PO DAILY [facility] Last Admin: 04/17/25 08:34 Dose: 50 mcg Documented By: FARIBA Labs 04/18/25 06:23 04/18/25 06:23 Labs: Laboratory Results - last 24 hr 04/17/25 04/18/25 06:59 06:23 MCV 84.2 MCH 27.5 MCHC 32.7 RDW 13.9 Plt Count 242 MPV 10.8 Immature Gran % (Auto) 0.3 Neut % (Auto) 69.9 Lymph % (Auto) 22.0 [place] % (Auto) 4.6 Eos % (Auto) 2.9 Baso % (Auto) 0.3 Lymph # (Auto) 1.7 [place] # (Auto) 0.4 Eos # (Auto) 0.2 Baso # (Auto) 0.0 Abs Immat Gran (auto) 0.02 Absolute Neuts (auto) 5.3 Absolute Nucleated RBC 0.000 Nucleated RBC % (auto) 0.0 Anion Gap 13 Estim Creat Clear Calc 145.2 Estimated GFR > 60 Random Glucose 95 Estimat Average Glucose 111 Hemoglobin A1c % 5.5 Calcium 8.4 Magnesium 2.0 Total Bilirubin 1.1 H AST 17 ALT 17 Alkaline Phosphatase 85 NT-Pro-B Natriuret Pep 1020.9 H Total Protein 6.0 L Albumin 3.5 Triglycerides 102 Cholesterol 153 LDL Cholesterol, Calc 102 H HDL Cholesterol 31 L Assessment and Plan (1) Hypertensive emergency: Status: Acute Plan Sudarshan De León is a 49 y/o man with known HFpEF , HTN, Morbid obesity , BMI 52.3 not on any home meds 2/2 insurance issues presented to the ED with SOB/HORTON 2/2 HTNsive urgency and was found to be in decompensated HF 2/2 not being on meds. HTNsive urgency 2/2 A/C decompensated HFpEF secondary to medication noncompliance Worsening HFrEF (29%) secondary to medication noncompliance, initiated on GDM T- Coreg, Entresto, amlodipine, spironolactone, Jardiance Severe diastolic dysfunction Hypertension requiring uptitrate in doses of medications Have initiated the patient on Entresto-doubled his home dose, started him on amlodipine 10, spironolactone increased to 50, Coreg increased to 12 double his home dose HFrEF worsening-29% likely secondary to medication noncompliance Patient has reinstated his insurance, has PCP, Cardiology outpatient follow-up He is now requiring higher doses of Bumex 2 mg b.i.d. Thankfully is not in [facility] hence HF education given Check elec and replete to goal Hyperlipidemia. Continue statin. Check lipid panel. Morbid obesity. BMI 52.3 kg/m2. Lifestyle changes. Weight loss encouraged. Code status: Full DVT prophylaxis: Lovenox Patient needs continued hospitalization for at least 1 midnights for significant decompensated HFrEF and requiring up titration and adjustment of his antihypertensive medications and electrolytes, close monitoring of his renal function. Patient likely will be discharged tomorrow pending clinical response and blood pressure management Quality Stroke Does the patient have a stroke diagnosis?: No VTE Prior VTE?: No VTE Risk Level:: Medical - moderate - high VTE Device Contraindication: Treatment Not Indicated VTE Drug Contraindication: N/A - Med Ordered
[2025-04-18] MEDS: Sacubitril/Valsartan 49/51 1 TAB TABLET PO ×2 (09:47→21:15)
--- NOTE | 2025-04-18 09:50 | P.CONCA_ITS ---
History of Present Illness History of Present Illness Date of Service: 04/18/25 Chief complaint: CHF exacerbation Narrative: This is a cardiology consultation regarding congestive heart failure. Last seen by our nurse practitioner in 2023. Per notes, history of morbid obesity, hypertension, nonischemic cardiomyopathy and chronic systolic congestive heart failure. At that time, he was doing okay. Current admission is regarding shortness of breath for the last few days accompanied by lower extremity swelling along with the abdominal distention. It seems that he has not taken meds for over a month. His blood pressure was very high when he came in and recorded as much as 205/105 mm Hg. He has been diuresed and started on appropriate medications. Currently, he states he is much improved. Echocardiogram was performed and that shows severe LV dysfunction and hence we are asked to see him. Review of Systems 2 Review of Systems: Yes all other systems are reviewed and are negative Constitutional: Constitutional: Reports as per HPI and Reports no additional constitutional complaints Eyes: Eyes: Reports as per HPI and Denies no additional eye complaints ENT: Denies system reviewed and no additional complaints, except as documented and Reports as per HPI Cardiovascular: Cardiovascular: Reports as per HPI, Reports no additional cardiovascular complaints, Denies acrocyanosis, Denies cool extremities, Denies chest pain, Reports leg edema, Denies lightheadedness, Denies palpitations and Reports dyspnea Respiratory: Respiratory: Reports as per HPI, Denies no additional respiratory complaints and Reports dyspnea Gastrointestinal: Gastrointestinal: Reports as per HPI and Denies no additional gastrointestinal complaints Genitourinary: Genitourinary: Reports no additional male genitourinary complaints and Reports as per HPI Musculoskeletal: Musculoskeletal: Reports no additional musculoskeletal complaints and Reports as per HPI Integumentary/Breasts: Skin/Breast: Reports system reviewed and no additional complaints, except as docu Neurologic: Reports system reviewed and no additional complaints, except as documented and Reports as per HPI Psychiatric: Psychiatric: Reports no additional psychiatric complaints and Reports as per HPI Endocrine: Endocrine: Reports no additional endocrine complaints, Reports as per HPI and Denies palpitations Hematologic/Lymphatic: Hematologic/Lymphatic: Reports no additional hematologic/lymphatic complaints and Reports as per HPI Allergic/Immunologic: Allergic/Immunologic: Reports no additional allergic/immunologic complaints and Reports as per HPI [facility] Past Medical History Medical History Morbid obesity CHF (congestive heart failure) Cardiomyopathy Obesity Diverticulitis Family History Family History Father Coronary artery disease CKD (chronic kidney disease) Mother HTN (hypertension) Anxiety Sister Heart disease Other Colon cancer Surgical History Surgical History No pertinent past surgical history Social History Social History Household Members: Significant Other Housing: Apartment Do you presently have visiting nurse or other home services: No Alcohol intake: current Alcohol intake frequency: holidays/special occasions only Patient Tobacco Use Status: Former Tobacco user Years Smoked: 20 +/- e-Cigarette/Vaping Use: Never Used Second Hand Smoke Exposure: No service: No Current occupational status: unemployed Cognitive needs: No Hearing needs: No Vision needs: No Meds Allergies Allergy/AdvReac Type Severity Reaction Status Date / Time No Known Allergies (No Known Allergy Verified 04/16/25 14:30 Allergies*) Active Medications: Current Medications Acetaminophen (Acetaminophen 325 Mg Tablet) 650 mg PO Q6H PRN PRN Reason: Pain, Mild 1-3,fever,headache Amlodipine Besylate (Amlodipine Besylate 10 Mg Tablet) 10 mg PO DAILY [facility]; Protocol Last Admin: 04/18/25 09:47 Dose: 10 mg Atorvastatin Calcium (Atorvastatin Calcium 80 Mg Tablet) 80 mg PO DAILY [facility] Last Admin: 04/18/25 09:47 Dose: 80 mg Bumetanide (Bumetanide 1 Mg Tablet) 2 mg PO BID@0800,1700 [facility]; Protocol Calcium Carbonate (Calcium Carbonate 750 Mg Tab.Chew) 750 mg PO Q4H PRN PRN Reason: Heartburn Carvedilol (Carvedilol 12.5 Mg Tablet) 12.5 mg PO BID [facility]; Protocol Last Admin: 04/18/25 09:41 Dose: 12.5 mg Enoxaparin Sodium (Enoxaparin Sodium 40 Mg/0.4 Ml Syringe) 40 mg SUBCUT Q12H [facility] Last Admin: 04/18/25 09:41 Dose: 40 mg Hydroxyzine HCl (Hydroxyzine Hcl 25 Mg Tablet) 25 mg PO BID PRN PRN Reason: Anxiety Magnesium Hydroxide (Milk Of Magnesia 30 Ml Oral.Susp) 30 ml PO DAILY PRN PRN Reason: Constipation Melatonin (Melatonin 3 Mg Tablet) 6 mg PO BEDTIME PRN PRN Reason: Insomnia Sacubitril/Valsartan (Sacubitril/Valsartan 49/51 1 Tab Tablet) 1 tab PO BID [facility]; Protocol Last Admin: 04/18/25 09:47 Dose: 1 tab Sodium Chloride (0.9 % Sodium Chloride Flush 3 Ml Syringe) 3 ml IVFLUSH QSHIFT [facility] Last Admin: 04/18/25 07:58 Dose: 3 ml Spironolactone (Spironolactone 25 Mg Tablet) 25 mg PO DAILY [facility]; Protocol Last Admin: 04/18/25 09:40 Dose: 25 mg Vitamin D (Cholecalciferol (Vitamin D3) 25 Mcg Tablet) 50 mcg PO DAILY [facility] Last Admin: 04/18/25 09:40 Dose: 50 mcg Physical Exam 2 Vital Signs: Vital Signs: Last Vital Signs Temp 98.0 F 04/18/25 08:00 Pulse 87 04/18/25 09:41 Resp 18 04/18/25 08:00 BP 173/79 H 04/18/25 09:41 Pulse Ox 98 04/18/25 08:00 O2 Del Method Room Air 04/18/25 08:00 BMI result Body Mass Index 52.3 Const: General: comfortable and no acute distress O rientation/consciousness: patient oriented x3 HEENT: Other: Unremarkable Head: Yes normal to inspection Neck: Neck: Yes normal visual inspection Chest: Chest palpation & inspection: normal inspection of the chest Resp: Auscultation: clear to auscultation bilaterally Cardio: Palpation: normal PMI Heart sounds: S1 normal heart sound present, S2 normal heart sound present, no gallops, no murmurs and no rubs GI: Palpation (GI): Soft to palpation Back/Spine/Pelvis: Other: unremarkable Skin: General skin exam: no rashes or lesions noted Neuro: General: patient oriented x3 Extrem: General: Yes normal to inspection and Yes pedal edema Psych: Mental Status: mental status grossly normal Objective Labs and Meds 04/18/25 06:23 04/18/25 06:23 Lab results: Laboratory Results - last 24 hr 04/17/25 04/18/25 06:59 06:23 WBC 7.6 RBC 4.69 Hgb 12.9 L Hct 39.5 L MCV 84.2 MCH 27.5 MCHC 32.7 RDW 13.9 Plt Count 242 MPV 10.8 Immature Gran % (Auto) 0.3 Neut % (Auto) 69.9 Lymph % (Auto) 22.0 [place] % (Auto) 4.6 Eos % (Auto) 2.9 Baso % (Auto) 0.3 Lymph # (Auto) 1.7 [place] # (Auto) 0.4 Eos # (Auto) 0.2 Baso # (Auto) 0.0 Abs Immat Gran (auto) 0.02 Absolute Neuts (auto) 5.3 Absolute Nucleated RBC 0.000 Nucleated RBC % (auto) 0.0 Sodium 143 Potassium 3.3 Chloride 106 Carbon Dioxide 27 Anion Gap 13 BUN 12 Creatinine 0.89 Estim Creat Clear Calc 145.2 Estimated GFR > 60 Random Glucose 95 Calcium 8.4 Magnesium 2.0 Total Bilirubin 1.1 H AST 17 ALT 17 Alkaline Phosphatase 85 NT-Pro-B Natriuret Pep 1020.9 H Total Protein 6.0 L Albumin 3.5 Triglycerides 102 Cholesterol 153 LDL Cholesterol, Calc 102 H HDL Cholesterol 31 L ECG Interpretation: EKG shows sinus rhythm at 91/Min; nonspecific ST-T changes; normal MD; borderline prolonged corrected QT. Assessment and Plan (1) Acute on chronic combined systolic and diastolic ACC/AHA stage C congestive heart failure: Status: Acute (2) Hypertensive emergency: Status: Acute Plan Echocardiogram with LVEF of 29% and severe diastolic dysfunction. This is lower than prior study. Suspect mainly due to noncompliance. He is back on medications and the current list includes Coreg, Entresto, amlodipine and spironolactone. This seems quite appropriate for him. Eventually, we will need to add Jardiance or Farxiga but can be done as an outpatient. He is also on Bumex for diuretics. Blood pressure is better but still not ideal. Either he can be discharged home or kept another day depending on how he feels. Can ambulate. Discussed with hospitalist. Procedures Date of Service Date of Service: 04/18/25
--- NOTE | 2025-04-18 09:58 | HO.WOUND ---
Wound Consult: Initial 49yr old?[place] [facility] [place] See progress notes and H&P for detailed history.? Wound consult placed for Left Leg wound.? Patient agreeable to assessment and photo documentation.? Patient reports the site was leaking a few days ago but since the decrease in swelling it is no longer leaking fluid. Skin assessed to be intact. No weeping noted - resurfaced tissue. No topical interventions needed. Patient encouraged to elevate his legs throughout the day. Should wound reopen please reconsult wound care.
--- NOTE | 2025-04-18 11:23 | MHC.CM.PN ---
PT MEDICALLY CLEARED FOR DC HOME SELF CARE, PER FS PT'S PT HAS HOSPITAL FOLLOW-UP W/[facility] AT DR. RIOS'S OFFICE 04/19 AT 2PM AND AWARE HE WILL NEED TO MAKE AN APPT W/DR. Mon HE HAS NOT BEEN SEEN SINCE EARLY 2023, PT WILL ARRANGE TRANSPORT HOME.
[2025-04-18] MEDS: Aspirin Enteric Coated 81 MG TABLET.DR PO (21:15)
[2025-04-19] VITALS (7 sets, daily range): BP systolic 122–169; BP diastolic 66–85; PULSE 65–71; RESP 18–20; TEMP 36.6–36.9; O2SAT 90–93
[2025-04-19 06:53] LABS: MANUAL DIFF FLAG NO
[2025-04-19 06:56] LABS: Hematocrit 40.9 % (42.0-52.0); Hemoglobin 13.4 g/dl (14.0-18.0); Imm Gran Abs Auto 0.03 X10*3/uL (0.00-0.03); Imm Gran Pct Auto 0.4 % (0.0-0.4); Lymphocytes Absolute Auto 1.7 X10*3/uL (1.2-4.9); Mean Corpuscular HGB Conc 32.8 g/dl (31.0-36.0); Mean Corpuscular Hemoglobin 27.3 pg (27.0-33.0); Mean Corpuscular Volume 83.3 fL (80.0-98.0); NRBC Abs Auto 0.000 X10*3/uL (0.0-0.012); NRBC Pct Auto 0.0 /100WBC (0.0-0.2); Platelet Count 251 X10*3/uL (160-400); Red Blood Count 4.91 X10*6/uL (4.60-5.80); White Blood Count 7.4 X10*3/uL (4.8-10.8)
--- NOTE | 2025-04-19 07:18 | P.PNIM_ITS ---
Subjective Subjective Date of Service: 04/19/25 Physical Exam 2 Vital Signs: Vital Signs: Last Vital Signs Temp 98.3 F 04/19/25 03:07 Pulse 65 04/19/25 03:07 Resp 20 04/19/25 03:07 BP 135/76 04/19/25 03:07 Pulse Ox 90 L 04/19/25 03:07 O2 Del Method Room Air 04/19/25 03:07 BMI result Body Mass Index 52.3 Objective Data Active Medications Acetaminophen (Acetaminophen 325 Mg Tablet) 650 mg PO Q6H PRN PRN Reason: Pain, Mild 1-3,fever,headache Amlodipine Besylate (Amlodipine Besylate 10 Mg Tablet) 10 mg PO DAILY [facility]; Protocol Last Admin: 04/18/25 09:47 Dose: 10 mg Documented By: IRMA Aspirin (Aspirin Enteric Coated 81 Mg Tablet.Dr) 81 mg PO BEDTIME [facility] Last Admin: 04/18/25 21:15 Dose: 81 mg Documented By: REGINALD Atorvastatin Calcium (Atorvastatin Calcium 80 Mg Tablet) 80 mg PO DAILY [facility] Last Admin: 04/18/25 09:47 Dose: 80 mg Documented By: IRMA Bumetanide (Bumetanide 1 Mg Tablet) 2 mg PO BID@0800,1700 [facility]; Protocol Last Admin: 04/18/25 16:59 Dose: 2 mg Documented By: IRMA Calcium Carbonate (Calcium Carbonate 750 Mg Tab.Chew) 750 mg PO Q4H PRN PRN Reason: Heartburn Carvedilol (Carvedilol 12.5 Mg Tablet) 12.5 mg PO BID [facility]; Protocol Last Admin: 04/18/25 21:15 Dose: 12.5 mg Documented By: REGINALD Empagliflozin (Empagliflozin 10 Mg Tablet) 10 mg PO DAILY [facility] Enoxaparin Sodium (Enoxaparin Sodium 40 Mg/0.4 Ml Syringe) 40 mg SUBCUT Q12H [facility] Last Admin: 04/18/25 21:15 Dose: 40 mg Documented By: REGINADL Hydroxyzine HCl (Hydroxyzine Hcl 25 Mg Tablet) 25 mg PO BID PRN PRN Reason: Anxiety Magnesium Hydroxide (Milk Of Magnesia 30 Ml Oral.Susp) 30 ml PO DAILY PRN PRN Reason: Constipation Melatonin (Melatonin 3 Mg Tablet) 6 mg PO BEDTIME PRN PRN Reason: Insomnia Sacubitril/Valsartan (Sacubitril/Valsartan 49/51 1 Tab Tablet) 1 tab PO BID [facility]; Protocol Last Admin: 04/18/25 21:15 Dose: 1 tab Documented By: REGINALD Sodium Chloride (0.9 % Sodium Chloride Flush 3 Ml Syringe) 3 ml IVFLUSH QSHIFT [facility] Last Admin: 04/18/25 21:15 Dose: 3 ml Documented By: REGINALD Spironolactone (Spironolactone 25 Mg Tablet) 50 mg PO DAILY [facility]; Protocol Vitamin D (Cholecalciferol (Vitamin D3) 25 Mcg Tablet) 50 mcg PO DAILY [facility] Last Admin: 04/18/25 09:40 Dose: 50 mcg Documented By: IRMA Labs 04/19/25 06:15 04/18/25 06:23 Labs: Laboratory Results - last 24 hr 04/19/25 06:15 MCV 83.3 MCH 27.3 MCHC 32.8 RDW 13.7 Plt Count 251 MPV 10.9 Immature Gran % (Auto) 0.4 Neut % (Auto) 67.7 Lymph % (Auto) 23.3 [place] % (Auto) 5.0 Eos % (Auto) 2.9 Baso % (Auto) 0.7 Lymph # (Auto) 1.7 [place] # (Auto) 0.4 Eos # (Auto) 0.2 Baso # (Auto) 0.1 Abs Immat Gran (auto) 0.03 Absolute Neuts (auto) 5.0 Absolute Nucleated RBC 0.000 Nucleated RBC % (auto) 0.0 Quality Stroke Does the patient have a stroke diagnosis?: No VTE Prior VTE?: No VTE Risk Level:: Medical - moderate - high VTE Device Contraindication: Treatment Not Indicated VTE Drug Contraindication: N/A - Med Ordered
[2025-04-19 07:23] LABS: Alanine Aminotransferase 19 U/L (0-40); Albumin Level 3.6 g/dL (3.5-5.0); Alkaline Phosphatase 84 U/L (39-117); Anion Gap 12 (12-20); Aspartate Amino Transferase 18 U/L (5-37); Blood Urea Nitrogen 11 mg/dL (9-16); Calcium 8.6 mg/dL (8.4-10.2); Carbon Dioxide 28 mmol/L (22-29); Chloride 105 mmol/L (96-108); Creatinine Clr Calc Pharmacy 143.6; Estimated Glomerular Filt Rate > 60; Potassium 3.3 mmol/L (3.3-5.1); Sodium 142 mmol/L (135-145); Total Protein 6.1 g/dL (6.5-8.0)
[2025-04-19] MEDS: Sacubitril/Valsartan 49/51 1 TAB TABLET PO (08:36)
[2025-04-19] MEDS: 0.9 % Sodium Chloride Flush 3 ML SYRINGE IVFLUSH (08:36)
--- NOTE | 2025-04-19 10:30 | MHC.CM.PN ---
PT MEDICALLY CLEARED FOR DC HOME SELF CARE, PT'S FOLLOW-UP TODAY HAS BEEN CANCELLED AND PT NOW SCHEDULED FOR 05/08 AT 0900 W/DR. RIOS. PT'S S.O. FOR TRANSPORT
--- NOTE | 2025-04-19 13:32 | P.DS_ITS ---
DS: Providers Provider Date of Service: 04/19/25 Date of admission: 04/16/25 18:06 Date of discharge: 04/19/25 Primary care physician: Hussain Rios MD Consults: 04/17/25 20:05 Consult to Wound Care Routine Reason for consultation: ? venous stasis ulcer L lower leg 04/18/25 09:34 Consult to Cardiology Routine [place] [facility] [place] [facility] Reason for consultation: hfref DS: Diagnosis Discharge Diagnosis (1) Hypertensive emergency: Status: Acute DS: Summary Hospital Course Hospital Course: HTNsive urgency 2/2 A/C decompensated HFpEF secondary to medication noncompliance Worsening HFrEF (29%) secondary to medication noncompliance, initiated on GDM T- Coreg, Entresto, amlodipine, spironolactone, Jardiance Severe diastolic dysfunction Hypertension requiring uptitrate in doses of medications Sudarshan De León is a 49 y/o man with known HFpEF , HTN, Morbid obesity , BMI 52.3 not on any home meds 2/2 insurance issues presented to the ED with SOB/HORTON 2/2 HTNsive urgency and was found to be in decompensated HF 2/2 not being on meds. Have initiated the patient on Entresto-doubled his home dose, started him on amlodipine 10, spironolactone increased to 50, Coreg increased to 12 double his home dose (please see the discharge medications) HFrEF worsening-29% likely secondary to medication noncompliance medication compliance reinforced, given him 3 months refill Patient has reinstated his insurance, has PCP, Cardiology outpatient follow-up He is now discharging on higher doses of Bumex 2 mg b.i.d. Thankfully is not in [facility] requiring escalating doses of diuretics. HF education given Electrolytes repleted to goal Hyperlipidemia. Continue statin. Check lipid panel. Morbid obesity. BMI 52.3 kg/m2. Lifestyle changes. Weight loss encouraged. Code status: Full DVT prophylaxis: Lovenox Patient is now having resolution of his hypertensive urgency, however his blood pressure is not optimally controlled however he needs to follow-up with PCP and monitor his blood pressure and uptitrate medications for which he does not need ongoing hospitalization. Time spent discussing smoking cessation with patient: more than 10 minutes Status at Discharge Functional status at discharge: independent ambulation Overall status at discharge: patient is back to baseline Time Attestation Discharge Coordination Time (in mins): 35 Quality: Safe Use of Opioids Does Pt have an Active Cancer Diagnosis on the Problem List?: No Quality: Stroke Does the patient have a stroke diagnosis?: No Physical Exam Vital Signs: Vital Signs: Last Vital Signs Temp 98.5 F 04/19/25 11:22 Pulse 70 04/19/25 11:22 Resp 18 04/19/25 11:22 BP 132/66 04/19/25 11:22 Pulse Ox 93 04/19/25 11:22 O2 Del Method Room Air 04/19/25 11:22 BMI result Body Mass Index 52.3 DS: Data Data Completed and Pending Labs on day of discharge: Laboratory Results - last 24 hr 04/19/25 06:15 WBC 7.4 RBC 4.91 Hgb 13.4 L Hct 40.9 L MCV 83.3 MCH 27.3 MCHC 32.8 RDW 13.7 Plt Count 251 MPV 10.9 Immature Gran % (Auto) 0.4 Neut % (Auto) 67.7 Lymph % (Auto) 23.3 [place] % (Auto) 5.0 Eos % (Auto) 2.9 Baso % (Auto) 0.7 Lymph # (Auto) 1.7 [place] # (Auto) 0.4 Eos # (Auto) 0.2 Baso # (Auto) 0.1 Abs Immat Gran (auto) 0.03 Absolute Neuts (auto) 5.0 Absolute Nucleated RBC 0.000 Nucleated RBC % (auto) 0.0 Sodium 142 Potassium 3.3 Chloride 105 Carbon Dioxide 28 Anion Gap 12 BUN 11 Creatinine 0.90 Estim Creat Clear Calc 143.6 Estimated GFR > 60 Random Glucose 89 Calcium 8.6 Total Bilirubin 0.8 AST 18 ALT 19 Alkaline Phosphatase 84 Total Protein 6.1 L Albumin 3.6 Discharge Plan Discharge Anticipated Discharge Date/Time: 04/19/25 09:41 Patient Disposition: Home, Self-Care Discharge Diagnosis: Hypertensive urgency, decompensated HFrEF secondary to medication noncompliance Referrals: Navid Sarkar MD [Physician, Cardiology] - 1 Week Hussain Rios MD [Primary Care Provider, Internal Medicine] - 05/08/25 9:00 am Referral Note: PRIMARY CARE FOLLOW-UP APPT W/DR. RIOS. Discharge Medications: New atorvastatin 80 mg Tablet 80 mg PO DAILY Qty: 30 3RF carvedilol 12.5 mg Tablet 12.5 mg PO BID Qty: 30 3RF Protocol: Hold for SBP/HR < HOLD for SBP < : 90 HOLD for HR < : 60 amlodipine 10 mg Tablet 10 mg PO DAILY Qty: 30 3RF Protocol: Hold for SBP< HOLD for SBP < : 90 sacubitril-valsartan [Entresto] 49-51 mg Tablet 1 tab PO BID 30 Days Qty: 60 3RF Protocol: Hold for SBP< HOLD for SBP < : 90 aspirin 81 mg Tablet,Delayed Release (Dr/Ec) 81 mg PO BEDTIME 30 Days Qty: 30 3RF spironolactone 25 mg Tablet 50 mg PO DAILY 30 Days Qty: 60 3RF Protocol: Hold for SBP< HOLD for SBP < : 90 bumetanide 1 mg Tablet 2 mg PO BID 30 Days Qty: 120 2RF Protocol: Hold for SBP< HOLD for SBP < : 90 Rx Instructions: 2 mg orally - take at 8am and 5pm daily Jardiance 10 mg Tablet 10 mg PO DAILY 30 Days Qty: 30 3RF Continued hydroxyzine HCl 25 mg tablet 25 mg PO BID PRN (Reason: anxiety) Qty: 14 0RF cholecalciferol (vitamin D3) 50 mcg (2,000 unit) tablet 50 mcg PO DAILY Qty: 90 2RF (DME) blood pressure kit-extra large Kit See Rx Instructions .Route Qty: 1 0RF Rx Instructions: As directed Discontinued losartan 100 mg tablet 100 mg PO DAILY Qty: 90 1RF spironolactone 25 mg tablet 25 mg PO DAILY Qty: 90 2RF atorvastatin 40 mg tablet 40 mg PO DAILY Qty: 90 1RF carvedilol 6.25 mg tablet 6.25 mg PO BID 90 Days Qty: 180 3RF Rx Instructions: must administer with a meal/food bumetanide 1 mg tablet 1 mg PO DAILY Qty: 110 2RF Rx Instructions: TAKE 1 TABLET DAILY. ADDITIONAL TABLET IF NEEDED FOR WEIGHT GAIN OVER 5 LBS Entresto 49-51 mg tablet 1 tab PO BID Qty: 60 5RF Rx Instructions: Replaces Losartan Discharge Orders: Discharge Order (Routine); Ordered 04/19/25 Ordered By: Linda Freeman Diet: Low salt diet Activity on Discharge: As tolerated Stand Alone Forms: Patient Portal Discharge page Print Language: Hebrew Care Plan Goals: Maintaining PCP appointments and titrating medications for severe hypotensive urgency Cardiac follow-up and adjusting his Bumex doses Strict low-sodium diet, instructions to return to the ED if he notices worsening SOB/HORTON or more than 2.2 lb weight gain Given his HFrEF, he it is very important that he maintain his appointments with PCP Patient advised about weight loss-may follow-up with PCP Health Concerns: See above Plan of Treatment: See above Assessment: See above
== END 2025-04-19 15:00 | disposition home or self-care (01) | DRG 194 ==
LOC: HO.ED 15:37 → HO.EDOVER 18:09 → HO.IMC 04-17 15:16
PROVIDERS: Internal Medicine; Physician Assistant Medical; Admitting Provider Family Medicine; Emergency Provider Emergency Medicine; PCP Internal Medicine; Visit Provider Student in an Organized Health Care Education/Training Program
DX: I11.0 Hypertensive heart disease with heart failure (principal); I42.8 Other cardiomyopathies; Z68.43 Body mass index [BMI] 50.0-59.9, adult; I16.1 Hypertensive emergency; E78.5 Hyperlipidemia, unspecified; E66.01 Morbid (severe) obesity due to excess calories; Z71.3 Dietary counseling and surveillance; I50.33 Acute on chronic diastolic (congestive) heart failure; Z20.822 Contact with and (suspected) exposure to COVID-19; Z91.148 Patient's other noncompliance with medication regimen for other reason; Z87.891 Personal history of nicotine dependence; Z79.82 Long term (current) use of aspirin; Z79.899 Other long term (current) drug therapy
CPT/HCPCS: 36415; 71046; 80048; 80053; 80061; 80076; 81003; 83036; 83735; 83880; 84443; 84484; 85025; 85027; 87502; 87635; 93005; 93306; 97162; 99285; J1650; J1920; J1938; Q9957

== ENCOUNTER → 2025-04-16 14:02 | Outpatient (BNV) | payer MEDICAID, SELFPAY | PROVIDERS: Admitting Provider Family Medicine; Emergency Provider Emergency Medicine; PCP Internal Medicine; Visit Provider Internal Medicine | DX: R94.31 Abnormal electrocardiogram [ECG] [EKG] (principal); R07.9 Chest pain, unspecified | CPT/HCPCS: 93010 ==

== ENCOUNTER → 2025-04-16 14:30 | Outpatient (BNV) | payer SELFPAY | PROVIDERS: Emergency Provider Emergency Medicine; PCP Internal Medicine; Visit Provider Radiology Diagnostic Radiology | DX: I51.7 Cardiomegaly (principal); R06.02 Shortness of breath | CPT/HCPCS: 71046 ==

== ENCOUNTER 2025-04-16 18:06 | Outpatient (BNV) | payer MEDICAID, SELFPAY | END 2025-04-17 07:00 | PROVIDERS: Admitting Provider Family Medicine; Emergency Provider Emergency Medicine; PCP Internal Medicine; Visit Provider Internal Medicine | DX: I50.30 Unspecified diastolic (congestive) heart failure (principal) | CPT/HCPCS: 93306 ==

== ENCOUNTER → 2025-04-16 18:06 | Outpatient (BNV) | payer MEDICAID, SELFPAY | PROVIDERS: Admitting Provider Family Medicine; Emergency Provider Emergency Medicine; PCP Internal Medicine; Visit Provider Internal Medicine | DX: I50.33 Acute on chronic diastolic (congestive) heart failure (principal); I16.1 Hypertensive emergency | CPT/HCPCS: 99223; 99232; 99239 ==

== ENCOUNTER → 2025-04-16 18:06 | Outpatient (BNV) | payer MEDICAID, SELFPAY | PROVIDERS: Admitting Provider Family Medicine; Emergency Provider Emergency Medicine; PCP Internal Medicine; Visit Provider Internal Medicine | DX: I50.43 Acute on chronic combined systolic (congestive) and diastolic (congestive) heart failure (principal); I16.1 Hypertensive emergency | CPT/HCPCS: 99223 ==

== ENCOUNTER 2025-05-07 12:47 | Outpatient (AMB) | payer MEDICAID, SELFPAY ==
[2025-05-07 12:53] VITALS: BP 122/50; PULSE 62; BMI 48.6
--- NOTE | 2025-05-07 12:53 | A.OFFVIS_ITS ---
Vital Signs 05/07/25 12:53 Height 5 ft 8 in Weight 319 lb 10.724 oz BMI 48.6 BP 122/50 L Blood Pressure Location Lt brachial Position Sitting Pulse 62 Pulse Source Pulse Oximeter Intake Visit Reasons: 2-4 weeks Follow UP Intake Note: 2- 4 week follow up after Hospitalization. Birthing Nurse Required: No Accompanied by: Significant Other Allergies No Known Allergies (No Known Allergies*) Allergy (Verified 05/07/25 12:57) Medication List - Last Reconciled 05/07/25 by Keshawn Meneses NP amlodipine 10 mg See Protocol PO DAILY aspirin 81 mg PO BEDTIME 30 days atorvastatin 80 mg PO DAILY blood pressure kit-extra large As directed bumetanide 2 mg See Protocol PO BID 30 days carvedilol 12.5 mg See Protocol PO BID empagliflozin (Jardiance) 10 mg PO DAILY 30 days sacubitril-valsartan 49-51 mg (Entresto) 1 tab See Protocol PO BID 30 days spironolactone 50 mg See Protocol PO DAILY 30 days HPI Comments Details: This is a 49-year-old male patient coming in for a hospital discharge follow-up visit. Patient with a history of hypertension, hyperlipidemia, congestive heart failure, nonischemic cardiomyopathy, and obesity who was in the hospital for worsening shortness of breath with exertion and leg swelling. Patient states that he had not been taking his medications over a month due to loss of insurance. In the hospital patient was also noted to have elevated blood pressures over 200/100. Patient had an echocardiogram there that showed severely reduced EF and was diuresed in the hospital and was restarted on all his medications. Today, patient reports ongoing shortness of breath with exertion accompanied with left-sided chest discomfort that improves with rest. Patient does note that his leg swelling have improved significantly. Patient is otherwise denying any palpitations, orthopnea, PND, presyncope, or syncope. Patient is reporting compliance with all his medications. [facility] Medical History Morbid obesity Cardiomyopathy Obesity Diverticulitis Surgical History No pertinent past surgical history Family History Father Coronary artery disease CKD (chronic kidney disease) Mother HTN (hypertension) Anxiety Sister Heart disease Other Colon cancer Social History Household Members: Significant Other Housing: Apartment Do you presently have visiting nurse or other home services: No Alcohol intake: current Alcohol intake frequency: holidays/special occasions only Comment: indep Patient Tobacco Use Status: Former Tobacco user Years Smoked: 20 +/- e-Cigarette/Vaping Use: Never Used Second Hand Smoke Exposure: No service: No Current occupational status: unemployed Cognitive needs: No Hearing needs: No Vision needs: No Review of Systems Const Denies daytime sleepiness, Denies difficulty sleeping, Denies snoring, Denies stops breathing during sleep and Denies weakness Card Denies chest pain, Denies rapid heart rate, Denies irregular heart rhythm, Denies claudication, Denies leg edema, Denies lightheadedness, Denies palpitations, Denies dyspnea, Denies dyspnea on exertion, Denies orthopnea, Denies paroxysmal nocturnal dyspnea and Denies slow heart rate Resp Denies cough, Denies dyspnea, Denies dyspnea on exertion and Denies snoring GI Reports no additional complaints, Denies hematochezia, Denies change in stool character and Denies dyspepsia Musc Denies abnormal gait, Denies muscle weakness and Denies numbness Neuro Denies abnormal gait, Denies numbness and Denies weakness Endo Denies palpitations Physical Exam Vital Signs: Last Vital Signs Pulse 62 05/07/25 12:53 BP 122/50 L 05/07/25 12:53 BMI result Body Mass Index 48.6 Const General: cooperative, healthy appearing, comfortable and no acute distress Orientation/consciousness: patient oriented x3 HEENT Head: Yes normal to inspection Neck Neck: Yes normal visual inspection, Yes trachea midline and Yes supple Chest Chest palpation & inspection: normal inspection of the chest Resp Effort & Inspection: normal respiratory effort Auscultation: clear to auscultation bilaterally, no crackles, no rales, no rhonchi and no wheezes Cardio Jugular venous distension: no JVD Palpation: normal PMI Rate: regular rate Rhythm: regular rhythm Heart sounds: S1 normal heart sound present, S2 normal heart sound present, no click, no gallops, no murmurs and no rubs Peripheral pulses: Peripheral pulses 2+ throughout GI Inspection: Yes normal to inspection Palpation (GI): Soft to palpation Auscultation: normal bowel sounds Skin General skin exam: no rashes or lesions noted Neuro General: patient oriented x3 Extrem General: Yes normal to inspection, No no pedal edema and No calf tenderness Psych Appearance: grossly normal Mental Status: mental status grossly normal Speech and movement: Normal speech and movement present Assessment & Plan Assessment & Plan (1) Acute on chronic combined systolic and diastolic ACC/AHA stage C congestive heart failure: Code(s): I50.43 - Acute on chronic combined systolic (congestive) and diastolic (congestive) heart failure Category: Medical Plan: Patient with known history of congestive heart failure. Recently in the hospital for worsening shortness of breath on exertion as well as leg swelling. Patient was off all his medications for over a month due to insurance problems. Patient was diuresed in the hospital and was restarted on all his medications. 04/17/2025-echo study showed a severely reduced EF at 29% with grade 3 diastolic dysfunction. On exam today, patient is euvolemic. Continue Bumex, carvedilol, Jardiance, Entresto, and Aldactone. We will get labs in 1 month and repeat a limited echo in 3 months to look for improvement in EF. Advised low-salt diet, daily weight monitoring, fluid restriction at 1.5 L daily, and wearing compression socks. Patient does report some shortness of breath with exertion accompanied with chest discomfort. Myocardial perfusion study back in 2021 was normal however given his multiple risk factors, we will get a myocardial perfusion study to look for ischemic changes. Patient is unable to walk on the treadmill and therefore we will use the [employer]. (2) Cardiomyopathy: Code(s): I42.9 - Cardiomyopathy, unspecified Category: Medical Qualifiers: Cardiomyopathy type: unspecified Qualified Code(s): I42.9 - Cardiomyopathy, unspecified Plan: As above. (3) Chest pain: Code(s): R07.9 - Chest pain, unspecified Category: Medical Plan: As above (4) HTN (hypertension): Code(s): I10 - Essential (primary) hypertension Category: Medical Plan: Blood pressure today is well-controlled. Continue current regimen. Advised monitoring blood pressures at home with a goal less than 130/80. Advised to maintain a log to bring to next visit. (5) Hyperlipidemia: Code(s): E78.5 - Hyperlipidemia, unspecified Category: Medical Plan: Continue high-dose statin therapy. Ideally, LDL goal closer to 70. (6) Hospital discharge follow-up: Code(s): Z09 - Encounter for follow-up examination after completed treatment for conditions other than malignant neoplasm Plan: As above. Advised heart healthy diet, regular exercise, losing weight, med compliance, and aggressive management of vascular risk factors. Follow up in 3 months, sooner if needed. In the interim, patient will call the office with any concerns or change in symptoms. Advised to seek ER care in case of exertional chest pain not resolved with rest. This note was generated using voice recognition software. While every effort has been made to ensure accuracy and proper waste minimization technician, there may be occasional errors that could affect the content or meaning of the described symptoms. Orders: Orders CA Echo Limited 3 Months I42.9 - Cardiomyopathy, unspecified CA lexiscan stress w glenna Today R07.9 - Chest pain, unspecified Basic Metabolic Panel 1 Month I42.9 - Cardiomyopathy, unspecified Liver Panel 1 Month I42.9 - Cardiomyopathy, unspecified Coding Level of Care Code Est Pt Level 4 (14818) Complex EM visit Add On G2211 Diagnoses Acute on chronic combined systolic and diastolic ACC/AHA stage C congestive heart failure I50.43 Cardiomyopathy I42.9 Cardiomyopathy type: unspecified Chest pain R07.9 HTN (hypertension) I10 Hyperlipidemia E78.5 Hospital discharge follow-up Z09 Time Spent (min) 32 Comment Time spent in reviewing the chart, test results, assessment, counseling and documentation.
== END 2025-05-07 13:26 | disposition home or self-care (01) ==
LOC: HO.HCS 12:48
PROVIDERS: PCP Internal Medicine
DX: I50.43 Acute on chronic combined systolic (congestive) and diastolic (congestive) heart failure (principal); I42.9 Cardiomyopathy, unspecified; R07.9 Chest pain, unspecified; I10 Essential (primary) hypertension; E78.5 Hyperlipidemia, unspecified; Z09 Encounter for follow-up examination after completed treatment for conditions other than malignant neoplasm
CPT/HCPCS: 99214

== ENCOUNTER → 2025-05-07 12:47 | Outpatient (BNVA) | payer OTHER, SELFPAY | PROVIDERS: PCP Internal Medicine | DX: I10 Essential (primary) hypertension (principal); I50.43 Acute on chronic combined systolic (congestive) and diastolic (congestive) heart failure; I42.9 Cardiomyopathy, unspecified; E78.5 Hyperlipidemia, unspecified | CPT/HCPCS: 99212 ==

== ENCOUNTER 2025-05-08 08:43 | Outpatient (AMB) | payer OTHER, SELFPAY ==
--- NOTE | 2025-05-08 09:03 | A.OFFPC_ITS ---
Vital Signs 05/08/25 09:05 Height 5 ft 8 in Weight 318 lb 6 oz BMI 48.4 BP 132/66 Blood Pressure Location Lt brachial Position Sitting Pulse 70 Pulse Source Pulse Oximeter Temp 97.1 F Temp Source Temporal Artery Scan Pulse Oximetry (%) 95 Oxygen Delivery Method Room Air Intake Visit Reasons: [facility] [place] 04/19 CHF Intake Note: Patient is here for hospital discharge follow up. Patient was discharged from [facility] [place] on 04/19/25. Director Of Informatics Required: No Information Systems Security Analyst: Present Accompanied by: Significant Other Allergies No Known Allergies (No Known Allergies*) Allergy (Verified 05/08/25 09:05) Tobacco use date assessed: 05/08/25 Dental Screening Dental Screen Date: 05/08/25 Did you have a dental visit in the last 12 months?: No Did you have a dental problem in the last 6 months where you did not have access to dental care?: No Was dental information given to patient?: No PFSH Medical History Morbid obesity Cardiomyopathy Obesity Diverticulitis Surgical History No pertinent past surgical history Family History Father Coronary artery disease CKD (chronic kidney disease) Mother HTN (hypertension) Anxiety Sister Heart disease Other Colon cancer Social History Household Members: Significant Other Housing: Apartment Do you presently have visiting nurse or other home services: No Alcohol intake: current Alcohol intake frequency: holidays/special occasions only Comment: indep Patient Tobacco Use Status: Former Tobacco user Years Smoked: 20 +/- e-Cigarette/Vaping Use: Never Used Second Hand Smoke Exposure: Yes service: No Current occupational status: unemployed Cognitive needs: No Hearing needs: No Vision needs: No Questionnaire PHQ-9 Over the last 2 weeks, how often have you been bothered by any of the following problems? 1. Little interest or pleasure in doing things: not at all 2. Feeling down, depressed, or hopeless: nearly every day 3. Trouble falling or staying asleep, or sleeping too much: nearly every day 4. Feeling tired or having little energy: nearly every day 5. Poor appetite or overeating: more than half the days 6. Feeling bad about yourself - or that you are a failure or have let yourself or your family down: nearly every day 7. Trouble concentrating on things, such as reading the newspaper or watching television: nearly every day 8. Moving or speaking so slowly that other people could have noticed. Or the opposite - being so fidgety or restless that you have been moving around a lot more than usual: nearly every day 9. Thoughts that you would be better off or of hurting yourself in some way: nearly every day Total score: 23 Depression Screening Interpretation: Positive Depression Screening Done: Yes Source: Developed by Drs. Ashu Cannon, Kim Wilson, Favian Gaspar and colleagues, with an educational supriya from [employer]. Thrive Questionnaire Date Thrive assessed: 04/17/25 I am a: Patient What is your living situation today?: I have a steady place to live Within the past 12 months, did the food you bought not last and you didn't have the money to get more?: Often true Within the past 12 months, did you worry whether your food would run out before you got money to buy more?: Often true Do you have trouble paying for medicines?: No Do you have trouble getting transportation to medical appointments?: No Do you have trouble paying your heating and electricity bill?: No Do you have trouble taking care of your child, family member or friend?: No Do you have trouble with day-to-day activities such as bathing, preparing meals, shopping, managing finances, etc.?: Yes Are you currently unemployed and looking for a job?: No Are you interested in more education?: No Please select the resources that you would like help with: None Currently or been in a relationship where the following occur: I choose not to answer THRIVE Score: 2 AUDIT C Alcohol Use Questionnaire (AUDIT-C) 1. How often do you have a drink containing alcohol?: Never Total Score: 0 RAFIQ-7 AMB Questionnaire RAFIQ-7 Date RAFIQ - 7 assessed: 05/08/25 Feeling nervous, anxious, or on edge: 3 = Nearly every day Not being able to stop or control worryin = Nearly every day Worrying too much about different things: 3 = Nearly every day Trouble relaxin = Nearly every day Being so restless that it is hard to sit still: 3 = Nearly every day Becoming easily annoyed or irritable: 3 = Nearly every day Feeling afraid as if something awful might happen: 3 = Nearly every day Total RAFIQ-7 score (0-4 normal; 5-9 mild; 10-14 moderate; 15-21 severe): 21 Source: Developed by Drs. Ashu Cannon, Kim Wilson, Favian Gaspar and colleagues, with an educational supriya from [employer]. Physical exam (Primary Care) Vital Signs: Last Vital Signs Temp 97.1 F 05/08/25 09:05 Pulse 70 05/08/25 09:05 BP 132/66 05/08/25 09:05 Pulse Ox 95 05/08/25 09:05 Oxygen Delivery Method Room Air 05/08/25 09:05 BMI result Body Mass Index 48.4 Tobacco/Smoking Status: Tobacco use Status Tobacco use date assessed 05/08/25 05/08/25 09:11 Patient Tobacco Use Status Former Tobacco user 05/08/25 09:11 e-Cigarette/Vaping Use Never Used 05/08/25 09:11 PHQ-9: PHQ-9 Score PHQ-9: Total score 23 05/08/25 09:11 Depression Screening Interpretation: Positive Thrive Assessment: Date of Thrive Assessment Date Thrive assessed 04/17/25 05/08/25 09:11 Currently or been in a relationship where the following occur: I choose not to answer Coding Level of Care Code Est Pt Level 4 (28828) Complex EM visit Add On G2211 Diagnoses Severe anxiety F41.9 Assessment & Plan Assessment & Plan (1) Severe anxiety: Code(s): F41.9 - Anxiety disorder, unspecified Category: Medical Plan: History of Present Illness - The patient is a 60-year-old male presenting for a physical examination and concerns regarding erectile dysfunction. - Heart failure: The patient has a history of heart failure and is concerned about the use of medications like Viagra due to potential cardiovascular risks. - Erectile dysfunction: The patient is exploring non-pharmacological options due to contraindications with his heart condition. - Preventative care: The patient has declined flu vaccination and colonoscopy but is considering Cologuard for colon cancer screening. Social History - The patient spends time at an adult care center and uses a computer for leisure activities. Review of Systems - Cardiovascular: Denies chest pain, reports improved breathing and functional status. - Gastrointestinal: Denies abdominal pain. - Neurological: Reports difficulty sleeping. - Ophthalmologic: Reports good vision with glasses for reading. - Auditory: Reports good hearing. Physical Exam General: Cooperative and healthy appearing Nutritional Appearance: Well nourished Orientation/consciousness: Patient oriented x3 Limitations: No limitations Head: Normal to inspection General: Appearance normal, both eyes and all related structures Neck: Normal visual inspection Chest: Normal palpation of entire chest wall Respiratory: Improved, patient able to function and walk without problems. ormal respiratory effort Neurology: Patient oriented x3. Results - Labs: Hemoglobin slightly low, other blood work within normal limits. Plan - Discussed the risks of using phosphodiesterase inhibitors like Viagra due to the patient's heart failure. - Recommended non-pharmacological options for erectile dysfunction, such as penile rings and oral stimulation. - Advised considering Cologuard for colon cancer screening as an alternative to colonoscopy. Discussion Notes I discussed with the patient the potential cardiovascular risks associated with using Viagra due to his existing heart failure. We explored alternative non- pharmacological options for managing erectile dysfunction, such as penile rings and oral stimulation. Additionally, I recommended considering Cologuard for colon cancer screening, given his reluctance to undergo a colonoscopy. Patient Instructions - Avoid using Viagra or similar medications due to heart condition risks. - Consider non-medication options for erectile dysfunction, such as penile rings. - Think about using Cologuard for colon cancer screening. 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
[2025-05-08 09:05] VITALS: BP 132/66; PULSE 70; TEMP 36.2; O2SAT 95; BMI 48.4
== END 2025-05-08 09:43 | disposition home or self-care (01) ==
LOC: HO.HMCH 08:44
PROVIDERS: PCP Internal Medicine; Visit Provider Internal Medicine
DX: Z23 Encounter for immunization (principal); F41.9 Anxiety disorder, unspecified

== ENCOUNTER → 2025-05-08 08:43 | Outpatient (BNVA) | payer OTHER, SELFPAY | PROVIDERS: PCP Internal Medicine; Visit Provider Internal Medicine | DX: Z00.00 Encounter for general adult medical examination without abnormal findings (principal); F41.9 Anxiety disorder, unspecified; I50.9 Heart failure, unspecified; N52.9 Male erectile dysfunction, unspecified; F32.4 Major depressive disorder, single episode, in partial remission; Z23 Encounter for immunization | CPT/HCPCS: 90471; 90656; 99212 ==

== ENCOUNTER 2025-06-06 09:59 | Outpatient (AMB) | payer OTHER, SELFPAY ==
[2025-06-06 10:40] VITALS: BP 144/70; PULSE 83; TEMP 36.7; O2SAT 97; BMI 50.2
--- NOTE | 2025-06-06 10:40 | MHC.PC.OV ---
Vital Signs 06/06/25 10:40 Height 5 ft 8 in Weight 330 lb 8 oz BMI 50.2 BP 144/70 H Blood Pressure Location Lt brachial Position Sitting Pulse 83 Pulse Source Pulse Oximeter Temp 98.1 F Temp Source Temporal Artery Scan Pulse Oximetry (%) 97 Oxygen Delivery Method Room Air Intake Visit Reasons: 1 Month Follow Up Intake Note: Patient is here for hospital discharge follow up. Patient was discharged from [facility] on 04/19/25. 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 Nutritionist: Present Accompanied by: Significant Other Allergies No Known Allergies (No Known Allergies*) Allergy (Verified 06/06/25 10:41) Tobacco use date assessed: 05/08/25 Dental Screening Dental Screen Date: 05/08/25 Did you have a dental visit in the last 12 months?: No Did you have a dental problem in the last 6 months where you did not have access to dental care?: No Was dental information given to patient?: No HPI HPI Comments History of Present Illness Details History of Present Illness - The patient is a 49 year old individual presenting for a follow-up visit after a physical exam on May 08. - The patient reports being previously prescribed an anxiety medication but was unable to start it due to cost, as it was approximately $47-$48 and not covered by the patient's [employer] insurance. - A referral was made to outpatient psychiatry, but the patient has not yet been contacted. - The patient is requesting a refill for other unspecified medications, which were finished today. - The patient has received a flu shot and uses a nasal pump for nasal symptoms. Social History - The patient has [employer] insurance but experienced financial barriers to accessing medication, being unable to afford a prescription that cost $47-48. Results [facility] Medical History Morbid obesity Cardiomyopathy Obesity Diverticulitis Surgical History No pertinent past surgical history Family History Father Coronary artery disease CKD (chronic kidney disease) Mother HTN (hypertension) Anxiety Sister Heart disease Other Colon cancer Social History Household Members: Significant Other Housing: Apartment Do you presently have visiting nurse or other home services: No Alcohol intake: current Alcohol intake frequency: holidays/special occasions only Comment: indep Patient Tobacco Use Status: Former Tobacco user Years Smoked: 20 +/- e-Cigarette/Vaping Use: Never Used Second Hand Smoke Exposure: Yes service: No Current occupational status: unemployed Cognitive needs: No Hearing needs: No Vision needs: No Questionnaire PHQ-9 Over the last 2 weeks, how often have you been bothered by any of the following problems? 1. Little interest or pleasure in doing things: not at all 2. Feeling down, depressed, or hopeless: nearly every day 3. Trouble falling or staying asleep, or sleeping too much: nearly every day 4. Feeling tired or having little energy: nearly every day 5. Poor appetite or overeating: more than half the days 6. Feeling bad about yourself - or that you are a failure or have let yourself or your family down: nearly every day 7. Trouble concentrating on things, such as reading the newspaper or watching television: nearly every day 8. Moving or speaking so slowly that other people could have noticed. Or the opposite - being so fidgety or restless that you have been moving around a lot more than usual: nearly every day 9. Thoughts that you would be better off or of hurting yourself in some way: nearly every day Total score: 23 Depression Screening Interpretation: Positive Depression Screening Done: Yes Source: Developed by Drs. Ashu Cannon, Kim Wilson, Favian Gaspar and colleagues, with an educational supriya from [employer] Thrive Questionnaire Date Thrive assessed: 05/08/25 I am a: Patient What is your living situation today?: I have a steady place to live Within the past 12 months, did the food you bought not last and you didn't have the money to get more?: Often true Within the past 12 months, did you worry whether your food would run out before you got money to buy more?: Often true Do you have trouble paying for medicines?: No Do you have trouble getting transportation to medical appointments?: No Do you have trouble paying your heating and electricity bill?: No Do you have trouble taking care of your child, family member or friend?: No Do you have trouble with day-to-day activities such as bathing, preparing meals, shopping, managing finances, etc.?: Yes Are you currently unemployed and looking for a job?: No Are you interested in more education?: No Please select the resources that you would like help with: None Currently or been in a relationship where the following occur: I choose not to answer THRIVE Score: 2 AUDIT C Alcohol Use Questionnaire (AUDIT-C) 1. How often do you have a drink containing alcohol?: Never 3. How often do you have six or more drinks on one occasion?: Never Total Score: 0 RAFIQ-7 AMB Questionnaire RAFIQ-7 Date RAFIQ - 7 assessed: 05/08/25 Feeling nervous, anxious, or on edge: 3 = Nearly every day Not being able to stop or control worryin = Nearly every day Worrying too much about different things: 3 = Nearly every day Trouble relaxin = Nearly every day Being so restless that it is hard to sit still: 3 = Nearly every day Becoming easily annoyed or irritable: 3 = Nearly every day Feeling afraid as if something awful might happen: 3 = Nearly every day Total RAFIQ-7 score (0-4 normal; 5-9 mild; 10-14 moderate; 15-21 severe): 21 Source: Developed by Drs. Ashu Cannon, Kim Wilson, Favian Gaspar and colleagues, with an educational supriya from [employer] Review of Systems Narrative Review of Systems - Constitutional: Reports feeling okay. - Psychiatric: Reports anxiety. - Respiratory: Reports using a nasal pump for nasal symptoms. Physical exam (Primary Care) Vital Signs: Last Vital Signs Temp 98.1 F 06/06/25 10:40 Pulse 83 06/06/25 10:40 BP 144/70 H 06/06/25 10:40 Pulse Ox 97 06/06/25 10:40 Oxygen Delivery Method Room Air 06/06/25 10:40 BMI result Body Mass Index 50.2 Tobacco/Smoking Status: Tobacco use Status Tobacco use date assessed 05/08/25 06/06/25 10:49 Patient Tobacco Use Status Former Tobacco user 06/06/25 10:49 e-Cigarette/Vaping Use Never Used 06/06/25 10:49 PHQ-9: PHQ-9 Score PHQ-9: Total score 23 06/06/25 10:49 Depression Screening Interpretation: Positive Thrive Assessment: Date of Thrive Assessment Date Thrive assessed 05/08/25 06/06/25 10:49 Currently or been in a relationship where the following occur: I choose not to answer Narrative Physical Exam General: Cooperative and healthy appearing Nutritional Appearance: Well nourished Orientation/consciousness: Patient oriented x3 Limitations: No limitations Head: Normal to inspection General: Appearance normal, both eyes and all related structures Neck: Normal visual inspection Chest: Normal palpation of entire chest wall Respiratory: Normal respiratory effort Neurology: Patient oriented x3 Coding Level of Care Code Complex visit Add On G2211 Diagnoses Severe anxiety F41.9 Assessment & Plan Assessment & Plan (1) Severe anxiety: Code(s): F41.9 - Anxiety disorder, unspecified Category: Medical Plan Plan - An alternative, affordable anxiety medication that is covered by the patient's insurance will be prescribed. - Three prescriptions will be sent for refill to the patient's specified pharmacy, [facility] on [address]. - The referral to outpatient psychiatry has been noted, and the patient is aware of the need to follow up. - A follow-up appointment is scheduled in three months. Discussion Notes I discussed the patient's inability to start the prescribed anxiety medication due to cost. I will identify an alternative that is covered by the patient's insurance and send a new prescription. I have sent three other medication refills to the patient's preferred pharmacy. We reviewed the previous referral to outpatient psychiatry, and I recommended the patient follow up with them. We agreed to schedule a follow-up appointment in three months to monitor progress. Patient Instructions - A new, more affordable medication for anxiety will be sent to your pharmacy. - Please fruit or nut picker your three prescription refills at the [facility] on [address]. - Please follow up with the outpatient psychiatry office for which you were given a referral. - Schedule a follow-up visit in three months. Medications: Refilled bumetanide 2 mg orally - take at 8am and 5pm daily 2 mg See Protocol PO BID 120 tabs 2RF 30 days empagliflozin (Jardiance) 10 mg PO DAILY 30 tabs 3RF 30 days
== END 2025-06-06 11:27 | disposition home or self-care (01) ==
LOC: HO.HMCH 10:00
PROVIDERS: PCP Internal Medicine; Visit Provider Internal Medicine
DX: F41.9 Anxiety disorder, unspecified (principal)

== ENCOUNTER → 2025-06-06 09:59 | Outpatient (BNVA) | payer OTHER, SELFPAY | PROVIDERS: PCP Internal Medicine; Visit Provider Internal Medicine | DX: F41.9 Anxiety disorder, unspecified (principal) | CPT/HCPCS: 99212 ==